=== PATIENT | male | born 1985 | race American Indian/Alaskan Native ===

== ENCOUNTER 2016-07-02 13:57 | Inpatient (IN) | payer MEDICARE ==
[2016-07-02] MEDS ORDERED: LOVENOX SUB-Q SCH (16:00)
--- NOTE | 2016-07-02 16:19 | History and Physical Report ---
History of Present Illness Date of examination: 07/02/16 Date of admission: 07/02/16 15:01 Chief complaint: pain crisis History of present illness: 30-year-old male with significant past medical history history of sickle cell anemia, seizure disorder, anxiety disorder and manic depressive disorder who presents with chief complaint of back hip and lower leg pain bilaterally. Patient is a direct admission from Dr. Reeves's office. Patient reports also having chest pain for the past couple days. His gravity prospecting observer helper reports hypoxia in the office visit along with the complaints of chest pain is what prompted the direct admission. Patient currently denies any shortness of breath. No headache or visual disturbances. No fever chills. No cough or cold -like symptoms. Past History Past Medical History: other (sickle cell, sz d/o, major depressive d/o anxiety d /o) Past Surgical History: No surgical history Social history: no significant social history Family history: no significant family history Medications and Allergies Allergies Allergy/AdvReac Type Severity Reaction Status Date / Time fentanyl Allergy Anaphylaxis Verified 12/03/14 12:24 iodine Allergy Anaphylaxis Verified 12/03/14 12:24 seafood Allergy Rash Uncoded 12/03/14 12:24 Active Meds: Active Medications Enoxaparin Sodium (Lovenox) 30 mg SUB-Q QDAY CYNDI Sodium Chloride (Nacl 0.9% 1000 Ml) 1,000 mls @ 75 mls/hr IV DIRECT CYNDI Review of Systems All systems: negative Exam - Constitutional Vitals: Temp Pulse Resp BP Pulse Ox 98.3 F 96 H 16 96 07/02/16 15:51 07/02/16 15:51 07/02/16 15:51 07/02/16 15:51 General appearance: Present: no acute distress, well-nourished - EENT Eyes: Present: PERRL ENT: hearing intact, clear oral mucosa - Neck Neck: Present: supple, normal ROM - Respiratory Respiratory effort: normal Respiratory: bilateral: CTA - Cardiovascular Heart Sounds: Present: S1 & S2. Absent: rub, click - Extremities Extremities: pulses symmetrical, No edema Peripheral Pulses: within normal limits - Abdominal General gastrointestinal: Present: soft, non-tender, non-distended, normal bowel sounds Male genitourinary: Present: normal - Integumentary Integumentary: Present: clear, warm, dry - Musculoskeletal Musculoskeletal: gait normal, strength equal bilaterally - Psychiatric Psychiatric: appropriate mood/affect, intact judgment & insight - Neurologic Neurologic: CNII-XII intact, moves all extremities Assessment and Plan Assessment and plan: Sickle cell vaso-occlusive crisis. Patient will be placed on the sickle cell pathway. Consult hematology for further evaluation. IV fluid hydration and pain control. Seizure disorder. Resume medications. Seizure precautions. Acute hypoxic respiratory failure. Check chest x-ray --rule out acute chest syndrome. Check VQ scan to rule out PE. Chest pain. Check chest x-ray, VQ scan to rule out PE and EKG. Consider stress thallium. History Major depressive disorder History Anxiety disorder.
[2016-07-02] MEDS ORDERED: ZOFRAN IV PRN (16:24)
[2016-07-02] MEDS ORDERED: DULCOLAX PR PRN (16:24)
[2016-07-02] MEDS ORDERED: REGLAN IV PRN (16:24)
[2016-07-02] MEDS ORDERED: MILK OF MAGNESIA PO PRN (16:24)
[2016-07-02 16:42] LABS: Basophils % (Auto) 0.8 % (0.0-1.8); Eosinophils % (Auto) 1.3 % (0.0-4.3); Hematocrit 32.9 % (35.5-45.6); Hemoglobin 11.2 gm/dl (11.8-15.2); Mean Corpuscular HGB Conc 34 % (32-34); Mean Corpuscular Hemoglobin 31 pg (28-32); Mean Corpuscular Volume 92 fl (84-94); Platelet Count 457 K/mm3 (140-440); Red Blood Count 3.59 M/mm3 (3.65-5.03); Red Cell Distribution Width 15.2 % (13.2-15.2); White Blood Count 9.6 K/mm3 (4.5-11.0)
[2016-07-02 16:59] LABS: Anion Gap 17 mmol/L; BUN/Creatinine Ratio 7.14; Blood Urea Nitrogen 5 mg/dL (9-20); Calcium 8.6 mg/dL (8.4-10.2); Carbon Dioxide 24 mmol/L (22-30); Chloride 102.6 mmol/L (98-107); Glucose 92 mg/dL (75-100); Potassium 3.1 mmol/L (3.6-5.0); Sodium 140 mmol/L (137-145)
[2016-07-02] MEDS ORDERED: D5/0.45NS 1,000 ML IV SCH (17:00)
[2016-07-02] MEDS: DILAUDID IV PRN ×2 (17:30→21:30)
[2016-07-02] MEDS: BENADRYL IV PRN ×2 (17:31→23:30)
[2016-07-02] MEDS: SENOKOT PO SCH (21:30)
[2016-07-02] MEDS: NACL 0.9% 1000 ML 1,000 ML IV SCH (23:32)
--- NOTE | 2016-07-03 00:59 | Consultation ---
History of Present Illness - Reason for Consult Consult date: 07/02/16 SCD/Pain crisis. Requesting physician: SANTO CERVANTES - History of Present Illness Thank you for this consult. Patient seen/examined yesterday evening, with a late entry. patient was sent from my office as a direct admit. He had presented to the office with diffuse pain, His diludid po at home was not working for him at that time.He was admitted for sxs management. He also reported some chest discomfort, and his oxygen was lower than usual.I had spoken to Dr Cervantes about him. Past History Past Medical History: anemia, other (sickle cell, sz d/o, major depressive d/o anxiety d/o) Past Surgical History: No surgical history Social history: single Family history: no significant family history Medications and Allergies Allergies Allergy/AdvReac Type Severity Reaction Status Date / Time fentanyl Allergy Anaphylaxis Verified 12/03/14 12:24 iodine Allergy Anaphylaxis Verified 12/03/14 12:24 NSAIDS (Non-Steroidal Allergy Seizure Verified 07/02/16 16:42 Anti-Inflamma IV contrast Allergy Seizure Uncoded 07/02/16 16:44 seafood AdvReac Swelling Uncoded 07/02/16 16:44 Home Medications Medication Instructions Recorded Confirmed Last Taken Type Aspirin [Aspirin TAB] 325 mg PO QDAY 07/02/16 Unknown History Diphenhydramine HCl 50 mg PO 4XD 07/02/16 Unknown History Divalproex [Jennifer ANDRE] 500 mg PO BID 07/02/16 Unknown History Folic Acid 1 mg PO DAILY 07/02/16 Unknown History Gabapentin 1,200 mg PO TID 07/02/16 Unknown History HYDROmorphone 2 mg PO 4XD 07/02/16 Unknown History Hydroxyurea [Hydrea] 1,000 mg PO BID 07/02/16 Unknown History Keppra TAB 1,000 mg PO BID 07/02/16 Unknown History Quetiapine Fumarate [Seroquel] 150 mg PO HS 07/02/16 Unknown History clonazePAM [Klonopin] 2 mg PO DAILY PRN 07/02/16 Unknown History Active Meds: Active Medications Bisacodyl (Dulcolax) 10 mg [place] QDAY PRN PRN Reason: Constipation unrelieved by MOM Diphenhydramine HCl (Benadryl) 25 mg IV Q6H PRN PRN Reason: Itching Last Admin: 07/02/16 23:30 Dose: 25 mg Enoxaparin Sodium (Lovenox) 40 mg SUB-Q QDAY@1000 CYNDI Folic Acid (Folvite) 1 mg PO QDAY [facility] Hydromorphone HCl (Dilaudid) 2 mg IV Q4HR PRN PRN Reason: Pain , Severe (7-10) Stop: 07/03/16 16:23 Last Admin: 07/02/16 21:30 Dose: 2 mg Sodium Chloride (Nacl 0.9% 1000 Ml) 1,000 mls @ 75 mls/hr IV DIRECT CYNDI Last Admin: 07/02/16 23:32 Dose: 75 mls/hr Magnesium Hydroxide (Milk Of Magnesia) 30 ml PO Q4H PRN PRN Reason: Constipation Metoclopramide HCl (Reglan) 10 mg IV Q6H PRN PRN Reason: Nausea And Vomiting Multivitamins (Theragran Tab) 1 each PO QDAY [facility] Ondansetron HCl (Zofran) 4 mg IV Q8H PRN PRN Reason: Nausea And Vomiting Senna (Senokot) 17.2 mg PO QHS [facility] Last Admin: 07/02/16 21:30 Dose: Not Given Review of Systems Constitutional: chronic pain Respiratory: shortness of breath Psychiatric: depression, mood swings Exam - Constitutional Vitals: Temp Pulse Resp BP Pulse Ox 98.4 F 79 18 119/58 95 07/02/16 23:15 07/02/16 23:15 07/02/16 23:15 07/02/16 23:15 07/02/16 23:15 General appearance: Present: mild distress, well-nourished - EENT Eyes: Present: PERRL ENT: hearing intact, clear oral mucosa - Neck Neck: Present: supple, normal ROM - Respiratory Respiratory effort: normal Respiratory: bilateral: CTA - Cardiovascular Heart Sounds: Present: S1 & S2. Absent: rub, click - Extremities Extremities: pulses symmetrical, No edema Peripheral Pulses: within normal limits - Abdominal General gastrointestinal: Present: soft, non-tender, non-distended, normal bowel sounds Male genitourinary: Present: deferred - Rectal Rectal Exam: deferred - Integumentary Integumentary: Present: clear, warm, dry - Musculoskeletal Musculoskeletal: gait normal, strength equal bilaterally - Psychiatric Psychiatric: appropriate mood/affect, intact judgment & insight - Neurologic Neurologic: CNII-XII intact, moves all extremities Results - Labs CBC & Chem 7: 07/02/16 16:20 07/02/16 16:20 Labs: Abnormal lab results 07/02/16 07/02/16 Range/Units 16:20 16:20 RBC 3.59 L (3.65-5.03) M/mm3 Hgb 11.2 L (11.8-15.2) gm/dl Hct 32.9 L (35.5-45.6) % Plt Count 457 H (140-440) K/mm3 Lymph % (Auto) 36.0 H (13.4-35.0) % Nobles % (Auto) 7.6 H (0.0-7.3) % Potassium 3.1 L (3.6-5.0) mmol/L BUN 5 L (9-20) mg/dL Creatinine 0.7 L (0.8-1.5) mg/dL Assessment and Plan - Patient Problems (1) Sickle cell anemia with coexistent alpha-thalassemia Current Visit: Yes Status: Acute Qualifiers: Sickle-cell associated disorders: S (2) Sickle cell anemia Current Visit: Yes Status: Acute Qualifiers: Sickle-cell associated disorders: S Plan to address problem: Monitor labs, and replace if needed. (3) Sickle cell pain crisis Current Visit: Yes Status: Acute Plan to address problem: Pain control, hydration.
[2016-07-03] MEDS ORDERED: K-DUR PO ONE ×2 (01:11→11:00)
[2016-07-03] MEDS: DILAUDID IV PRN ×5 (01:36→22:00)
[2016-07-03] MEDS: BENADRYL IV PRN ×4 (05:29→21:59)
[2016-07-03 06:05] LABS: Hematocrit 31.6 % (35.5-45.6); Mean Corpuscular HGB Conc 35 % (32-34); Mean Corpuscular Hemoglobin 32 pg (28-32); Mean Corpuscular Volume 92 fl (84-94); Platelet Count 437 K/mm3 (140-440); Red Blood Count 3.42 M/mm3 (3.65-5.03); Reticulocyte % 2.11 % (0.78-2.58); White Blood Count 10.9 K/mm3 (4.5-11.0)
[2016-07-03 06:29] LABS: Iron 81 ug/dL (49-181); Total Iron Binding Capacity 188 mcg/dL (250-450)
--- NOTE | 2016-07-03 08:09 | XRay Report ---
ROUTINE CHEST, TWO VIEWS: HISTORY: chest pain. No comparison. A right [id number] terminates in the superior SVC. The trachea, heart, mediastinal contour, lung rosa and bony thorax are unremarkable. IMPRESSION: Unremarkable chest x-ray.
--- NOTE | 2016-07-03 08:43 | Nuclear Medicine Report ---
LUNG SCAN, VENTILATION AND PERFUSION: History: Chest pain, sickle cell disease. Technique: 5mci of Tc99m MAA was infused for the perfusion images. 15mci XE 133 gas was inhaled for the ventilatory images. Correlation is made with a chest x-ray dated 07/02/16. Findings: Inhalation of Xenon gas demonstrates a normal distribution of the activity throughout both lungs. The wash out phases show mild retention of the radiotracer in the lower lung zones suggesting mild obstructive disease. After injection of Technetium 99m macroaggregated albumin gamma camera imaging of the lungs in multiple projections demonstrates normal pulmonary contours with a homogeneous distribution of activity. No focal areas of perfusion deficiency are identified. IMPRESSION: Low probability for pulmonary embolus.
--- NOTE | 2016-07-03 08:44 | Admit Criteria Form ---
Admission Criteria Documentation: SICKLE CELL DISEASE Clinical Indications for Admission to Inpatient Care (Place 'X' for any and all applicable criteria): Admission is indicated for ANY ONE of the following(1)(2)(3)(4)(5): [X ]I. Inpatient admission required rather than observation care because of ANY ONE of the following: [ ]a) Altered mental status [ ]b) High fever or infection requiring inpatient admission as indicated by ANY ONE of the following: [ ]A. Appropriate outpatient observation care antimicrobial treatment unavailable, not effective, or not appropriate for infection [ ]B. Documented bacteremia [ ]C. Temp >104.9F (40.5C) (oral) [ ]D. Temp >103.1F (oral) or <96.8F(rectal) that does not respond to all emergency treatment measures [X ]c) Supplemental O2 or respiratory therapy for over 24 h that are performable only in acute inpatient setting [ ]d) Continuous parenteral narcoticsother major pain intervention for >24 h performable only in acute inpatient setting. [ ]e) Exchange transfusion [ ]f) Other condition, treatment or monitoring requiring inpatient admission [ ]II. Acute chest syndrome indicated by ALL of the following (10): [ ]a) New alveolar infiltrate involving at least one lung segment [ ]b) Associated pulmonary symptoms or findings as indicated by ANY ONE of the following: [ ]i) Chest pain [ ]ii) Hypoxemia [ ]iii) Tachypnea/dyspnea [ ]iv) Wheezing [ ]v) Cough [ ]vi) Sputum production [ ]III. Significant hypoxemia or acidosis (more severe than baseline) [ ]IV. Emergent surgery needed (eg, acute cholecystitis) [ ]V. -related complication(11) [ ]. Splenic or hepatic sequestration(12) [ ]VII. Aplastic crisis [ ]VIII. Priapism or other vascular complication(13) [ ]IX. Traumatic hyphema [A](14) [ ]X. Underlying condition requiring hospitalization (eg, osteomyelitis) [ ]XI. Signs or symptoms of central nervous system injury indicated by ANY ONE of the following: [ ]a) Stroke(9) [ ]b) Seizure [ ]c) Other significant central nervous system symptom or event [ ]XII. Acute renal failure Extended stay beyond goal length of stay may be needed for: [ ]a) Inadequate pain control [ ]b) Acute chest syndrome [ ]c) Sequestration or aplastic crisis (12) [ ]d) Pneumonia and asthma exacerbation [ ]e) Neurologic or vascular complications (25) [ ]f) Infection (eg, osteomyelitis) that requires ongoing treatment) The original [facility] [employer] content created by [facility] has been revised. The portions of the content which have been revised are identified through the use of italic text or in bold, and [facility] has neither reviewed nor approved the modified material. All other unmodified content is copyright [facility]. Please see references footnoted in the original [facility] edition 2016 Admission Criteria Met: Yes
--- NOTE | 2016-07-03 09:56 | Progress Note ---
Assessment and Plan Assessment and plan: Sickle cell vaso-occlusive crisis. Patient will be placed on the sickle cell pathway. Consult hematology for further evaluation. IV fluid hydration and pain control. Seizure disorder. Resume medications. Seizure precautions. Acute hypoxic respiratory failure. Resolved. Continue O2. Supportive care Chest pain. VQ scan and chest x-ray are negative. No evidence of acute chest syndrome. Etiology likely secondary to sickle cell crisis. Hypokalemia. Replete potassium. History Major depressive disorder History Anxiety disorder. History Interval history: Patient still complains of back and lower extremity pain. Hospitalist Physical - Constitutional Vitals: Temp Pulse Resp BP Pulse Ox 97.8 F 64 18 127/61 98 07/03/16 08:00 07/03/16 08:00 07/03/16 08:00 07/03/16 08:00 07/03/16 08:00 General appearance: Present: no acute distress, well-nourished - EENT Eyes: Present: PERRL, EOM intact ENT: hearing intact, clear oral mucosa, dentition normal - Neck Neck: Present: supple, normal ROM - Respiratory Respiratory effort: normal Respiratory: bilateral: CTA - Cardiovascular Rhythm: regular Heart Sounds: Present: S1 & S2. Absent: gallop, rub - Extremities Extremities: no ischemia, No edema, Full ROM - Abdominal General gastrointestinal: soft, non-tender, non-distended, normal bowel sounds - Integumentary Integumentary: Present: clear, warm, dry - Neurologic Neurologic: CNII-XII intact, moves all extremities Results - Labs CBC & Chem 7: 07/03/16 05:20 07/02/16 16:20 Labs: Laboratory Last Values WBC 10.9 K/mm3 (4.5-11.0) 07/03/16 05:20 RBC 3.42 M/mm3 (3.65-5.03) L 07/03/16 05:20 Hgb 11.0 gm/dl (11.8-15.2) L 07/03/16 05:20 Hct 31.6 % (35.5-45.6) L 07/03/16 05:20 MCV 92 fl (84-94) 07/03/16 05:20 MCH 32 pg (28-32) 07/03/16 05:20 MCHC 35 % (32-34) H 07/03/16 05:20 RDW 15.0 % (13.2-15.2) 07/03/16 05:20 Plt Count 437 K/mm3 (140-440) 07/03/16 05:20 Lymph % (Auto) Nail Polish Brush Machine Feeder 07/03/16 05:20 Turner % (Auto) 7.6 % (0.0-7.3) H 07/02/16 16:20 Eos % (Auto) 1.3 % (0.0-4.3) 07/02/16 16:20 Baso % (Auto) 0.8 % (0.0-1.8) 07/02/16 16:20 Lymph # Nail Polish Brush Machine Feeder 07/03/16 05:20 Turner # 0.7 K/mm3 (0.0-0.8) 07/02/16 16:20 Eos # 0.1 K/mm3 (0.0-0.4) 07/02/16 16:20 Baso # 0.1 K/mm3 (0.0-0.1) 07/02/16 16:20 Seg Neutrophils % Nail Polish Brush Machine Feeder 07/03/16 05:20 Seg Neutrophils # 5.2 K/mm3 (1.8-7.7) 07/02/16 16:20 Percent Retic 2.11 % (0.78-2.58) 07/03/16 05:20 Sodium 140 mmol/L (137-145) 07/02/16 16:20 Potassium 3.1 mmol/L (3.6-5.0) L 07/02/16 16:20 Chloride 102.6 mmol/L (98-107) 07/02/16 16:20 Carbon Dioxide 24 mmol/L (22-30) 07/02/16 16:20 Anion Gap 17 mmol/L 07/02/16 16:20 BUN 5 mg/dL (9-20) L 07/02/16 16:20 Creatinine 0.7 mg/dL (0.8-1.5) L 07/02/16 16:20 Estimated GFR > 60 ml/min 07/02/16 16:20 BUN/Creatinine Ratio 7.14 % 07/02/16 16:20 Glucose 92 mg/dL (75-100) 07/02/16 16:20 Calcium 8.6 mg/dL (8.4-10.2) 04/24/17 16:20 Iron 81 ug/dL (49-181) 07/03/16 05:20 TIBC 188 mcg/dL (250-450) L 07/03/16 05:20 Ferritin 112.0 ng/mL (13.0-400.0) 07/03/16 05:20
[2016-07-03] MEDS ORDERED: LOVENOX SUB-Q SCH (10:00)
[2016-07-03] MEDS ORDERED: THERAGRAN Tab PO SCH (10:00)
[2016-07-03] MEDS ORDERED: FOLVITE PO SCH (10:00)
[2016-07-03 10:55] LABS: Blastocytes % (Manual) 0 %
[2016-07-03 10:57] LABS: Basophils % (Manual) 0 % (0.0-1.8); Poikilocytosis Few
[2016-07-03 10:58] LABS: Diff Status Complete; Sickle Cells Few; Target Cells 2+
[2016-07-03] MEDS: NACL 0.9% 1000 ML 1,000 ML IV SCH (11:16)
[2016-07-03] MEDS ORDERED: ATIVAN ONE (19:08)
[2016-07-03] MEDS ORDERED: ATIVAN IV ONE (19:12)
--- NOTE | 2016-07-03 20:49 | Consultation ---
History of Present Illness - Reason for Consult Consult date: 07/03/16 - History of Present Illness Patient seen/examined, record reviewed, case d/w patient. he had an anxiety attack earlier. he was upset because his pain med was accidentally discontinued. Past History Past Medical History: anemia, other (sickle cell, sz d/o, major depressive d/o anxiety d/o) Past Surgical History: No surgical history Social history: single Family history: no significant family history Medications and Allergies Allergies Allergy/AdvReac Type Severity Reaction Status Date / Time fentanyl Allergy Anaphylaxis Verified 12/03/14 12:24 iodine Allergy Anaphylaxis Verified 12/03/14 12:24 NSAIDS (Non-Steroidal Allergy Seizure Verified 07/02/16 16:42 Anti-Inflamma IV contrast Allergy Seizure Uncoded 07/02/16 16:44 seafood AdvReac Swelling Uncoded 07/02/16 16:44 Home Medications Medication Instructions Recorded Confirmed Last Taken Type Aspirin [Aspirin TAB] 325 mg PO QDAY 07/02/16 Unknown History Diphenhydramine HCl 50 mg PO 4XD 07/02/[address] [DepaKOTE DR] 500 mg PO BID 07/02/16 Unknown History Folic Acid 1 mg PO DAILY 07/02/16 Unknown History Gabapentin 1,200 mg PO TID 07/02/16 Unknown History HYDROmorphone 2 mg PO 4XD 07/02/16 Unknown History Hydroxyurea [Hydrea] 1,000 mg PO BID 07/02/16 Unknown History Keppra TAB 1,000 mg PO BID 07/02/16 Unknown History Quetiapine Fumarate [Seroquel] 150 mg PO HS 07/02/16 Unknown History clonazePAM [Klonopin] 2 mg PO DAILY PRN 07/02/16 Unknown History Active Meds: Active Medications Bisacodyl (Dulcolax) 10 mg [place] QDAY PRN PRN Reason: Constipation unrelieved by MOM Diphenhydramine HCl (Benadryl) 25 mg IV Q6H PRN PRN Reason: Itching Last Admin: 07/03/16 13:49 Dose: 25 mg Enoxaparin Sodium (Lovenox) 40 mg SUB-Q QDAY@1000 CYNDI Last Admin: 07/03/16 09:37 Dose: 40 mg Folic Acid (Folvite) 1 mg PO QDAY CYNDI Last Admin: 07/03/16 09:38 Dose: 1 mg Hydromorphone HCl (Dilaudid) 2 mg IV Q3H PRN PRN Reason: Pain , Severe (7-10) Sodium Chloride (Nacl 0.9% 1000 Ml) 1,000 mls @ 75 mls/hr IV DIRECT [facility] Last Admin: 07/03/16 11:16 Dose: 75 mls/hr Magnesium Hydroxide (Milk Of Magnesia) 30 ml PO Q4H PRN PRN Reason: Constipation Metoclopramide HCl (Reglan) 10 mg IV Q6H PRN PRN Reason: Nausea And Vomiting Multivitamins (Theragran Tab) 1 each PO QDAY [facility] Last Admin: 07/03/16 09:38 Dose: 1 each Ondansetron HCl (Zofran) 4 mg IV Q8H PRN PRN Reason: Nausea And Vomiting Senna (Senokot) 17.2 mg PO QHS [facility] Last Admin: 07/02/16 21:30 Dose: Not Given Review of Systems Constitutional: chronic pain Musculoskeletal: low back pain Neurological: seizures Psychiatric: anxiety Exam - Constitutional Vitals: Temp Pulse Resp BP Pulse Ox 98.1 F 88 24 129/73 100 07/03/16 15:31 07/03/16 19:16 07/03/16 19:16 07/03/16 19:16 07/03/16 19:16 General appearance: Present: mild distress, well-nourished - EENT Eyes: Present: PERRL ENT: hearing intact, clear oral mucosa - Neck Neck: Present: supple, normal ROM - Respiratory Respiratory effort: normal Respiratory: bilateral: CTA - Cardiovascular Heart Sounds: Present: S1 & S2. Absent: rub, click - Extremities Extremities: pulses symmetrical, No edema Peripheral Pulses: within normal limits - Abdominal General gastrointestinal: Present: soft, non-tender, non-distended, normal bowel sounds Male genitourinary: Present: deferred - Rectal Rectal Exam: deferred - Integumentary Integumentary: Present: clear, warm, dry - Musculoskeletal Musculoskeletal: gait normal, strength equal bilaterally - Psychiatric Psychiatric: appropriate mood/affect, intact judgment & insight - Neurologic Neurologic: CNII-XII intact, moves all extremities Results - Labs CBC & Chem 7: 07/03/16 05:20 07/02/16 16:20 Labs: Abnormal lab results 07/03/16 07/03/16 Range/Units 05:20 05:20 RBC 3.42 L (3.65-5.03) M/mm3 Hgb 11.0 L (11.8-15.2) gm/dl Hct 31.6 L (35.5-45.6) % MCHC 35 H (32-34) % Seg Neuts % (Manual) 24.0 L (40.0-70.0) % Lymphocytes % (Manual) 68.0 H (13.4-35.0) % Lymphocytes # (Manual) 7.4 H (1.2-5.4) K/mm3 TIBC 188 L (250-450) mcg/dL Assessment and Plan - Patient Problems (1) Sickle cell anemia with coexistent alpha-thalassemia Current Visit: Yes Status: Acute Qualifiers: Sickle-cell associated disorders: S Plan to address problem: continue with current management. (2) Sickle cell anemia Current Visit: Yes Status: Acute Qualifiers: Sickle-cell associated disorders: S Plan to address problem: Monitor labs, and replace if needed. same as above. (3) Sickle cell pain crisis Current Visit: Yes Status: Acute Plan to address problem: Pain control, hydration. (4) Anxiety Current Visit: Yes Status: Acute Plan to address problem: mild anti anxiety of your choice. (5) Seizure Current Visit: Yes Status: Acute Plan to address problem: resume his keppra.
[2016-07-03] MEDS: SENOKOT PO SCH (21:56)
[2016-07-03] MEDS ORDERED: KEPPRA PO SCH (23:00)
[2016-07-04] MEDS: DILAUDID IV PRN ×3 (02:01→07:55)
[2016-07-04] MEDS: BENADRYL IV PRN (05:11)
[2016-07-04 06:13] LABS: Hematocrit 33.6 % (35.5-45.6); Hemoglobin 11.5 gm/dl (11.8-15.2); Mean Corpuscular HGB Conc 34 % (32-34); Mean Corpuscular Hemoglobin 31 pg (28-32); Mean Corpuscular Volume 91 fl (84-94); Platelet Count 474 K/mm3 (140-440); Red Blood Count 3.67 M/mm3 (3.65-5.03); Red Cell Distribution Width 15.9 % (13.2-15.2); Reticulocyte % 2.26 % (0.78-2.58); White Blood Count 9.7 K/mm3 (4.5-11.0)
[2016-07-04 06:31] LABS: Anion Gap 14 mmol/L; BUN/Creatinine Ratio 8.33; Blood Urea Nitrogen 5 mg/dL (9-20); Calcium 8.5 mg/dL (8.4-10.2); Carbon Dioxide 27 mmol/L (22-30); Chloride 105.4 mmol/L (98-107); Glucose 92 mg/dL (75-100); Potassium 3.9 mmol/L (3.6-5.0); Sodium 142 mmol/L (137-145)
[2016-07-04 07:40] LABS: Basophils % (Manual) 0 % (0.0-1.8); Blastocytes % (Manual) 0 %; Target Cells 2+
[2016-07-04 07:41] LABS: Diff Status Complete; Platelet Estimate Appears Increased; Sickle Cells Few
[2016-07-04 08:56] VITALS: BP 119/64
[2016-07-04] MEDS ORDERED: HYDREA PO SCH (10:00)
--- NOTE | 2016-07-04 10:08 | Discharge Summary ---
Providers - Providers Date of Admission: 07/02/16 15:01 Date of discharge: 07/04/16 Attending physician: SANTO ANDREW 07/03/16 08:07 Consult to Physician [CONS] Routine Consulting Provider: RACHEL REEVES Reason For Exam: ss pain crisis Place consult to:: DR. REEVES Notified:: DR. REEVES Phone number called:: [phone] Was contact made?: Yes If yes, spoke with:: DR. REEVES Time called:: 09:07 Primary care physician: BIGHT MAKER Hospitalization Reason for admission: sickle cell pain crisis Hospital course: 30-year-old male with significant past medical history history of sickle cell anemia, seizure disorder, anxiety disorder and manic depressive disorder who presented with chief complaint of back hip and lower leg pain bilaterally. Patient was a direct admission from Dr. Reeves's office. Patient reported also having chest pain for the past couple days prior to admission. His network intern reported hypoxia in the office visit along with the complaints of chest pain is what prompted the direct admission. VQ scan was negative for pulmonary embolus. Chest x-ray was also negative. No evidence of acute chest syndrome. Patient was treated with IV pain medication, IV fluids and supportive care. Patient was seen by hematology consultation. This morning patient reports having several family emergencies that he needs to deal with. Therefore, patient opted to leave AMA. The risks were discussed with the patient. Nurse reports that the port access was terminated. Dedicated discharge time 35 minutes. Disposition: LEFT AGAINST MEDICAL ADVICE Time spent for discharge: 35 - Discharge Diagnoses (1) Anxiety Status: Acute (2) Sickle cell anemia Status: Acute Qualifiers: Sickle-cell associated disorders: S (3) Sickle cell pain crisis Status: Acute Core Measure Documentation - Palliative Care Palliative Care/ Comfort Measures: Not Applicable - Core Measures Any of the following diagnoses?: none Exam - Constitutional Vitals: Temp Pulse Resp BP Pulse Ox 97.9 F 80 18 119/64 100 07/04/16 08:51 07/04/16 08:51 07/04/16 08:51 07/04/16 08:51 07/04/16 08:51 General appearance: Present: no acute distress, well-nourished - EENT Eyes: Present: PERRL ENT: hearing intact, clear oral mucosa - Neck Neck: Present: supple, normal ROM - Respiratory Respiratory effort: normal Respiratory: bilateral: CTA - Cardiovascular Heart Sounds: Present: S1 & S2. Absent: rub, click - Extremities Extremities: pulses symmetrical, No edema Peripheral Pulses: within normal limits - Abdominal General gastrointestinal: Present: soft, non-tender, non-distended, normal bowel sounds Male genitourinary: Present: normal - Integumentary Integumentary: Present: clear, warm, dry - Musculoskeletal Musculoskeletal: gait normal, strength equal bilaterally - Psychiatric Psychiatric: appropriate mood/affect, intact judgment & insight - Neurologic Neurologic: CNII-XII intact, moves all extremities Plan Follow up with: PRIMARY CARE, [Primary Care Provider] - 7 Days
== END 2016-07-04 10:00 | disposition left against medical advice (07) | DRG 811 ==
LOC: UNDOADMIN 13:57 → 3A 13:57
PROVIDERS: ADMIT Hospitalist; ATTEND Hospitalist
DX: D57.419 Sickle-cell thalassemia, unspecified, with crisis (principal); J96.01 Acute respiratory failure with hypoxia; F33.9 Major depressive disorder, recurrent, unspecified; E87.6 Hypokalemia; G40.909 Epilepsy, unspecified, not intractable, without status epilepticus; F41.9 Anxiety disorder, unspecified; Z88.8 Allergy status to other drugs, medicaments and biological substances; Z91.041 Radiographic dye allergy status; Z91.013 Allergy to seafood; Z53.21 Procedure and treatment not carried out due to patient leaving prior to being seen by health care provider
CPT/HCPCS: 36415; 71020; 78582; 80048; 82728; 83550; 85007; 85025; 85045; 93005; 93010; 99406; A9540; A9558; J1170; J1200; J1650; J2060; J7030

== ENCOUNTER 2016-10-24 06:42 | Emergency (ER) | payer MEDICARE ==
[2016-10-24] MEDS ORDERED: D5NS 0.2% 1,000 ML IV SCH (08:00)
[2016-10-24 12:49] LABS: Creatine Kinase 56 units/L (55-170)
[2016-10-24 12:55] LABS: Creatine Kinase MB < 1.0 ng/mL (0.0-4.0)
[2016-10-24] MEDS ORDERED: DILAUDID IV ONE ×2 (13:09→15:38)
[2016-10-24] MEDS ORDERED: ZOFRAN IV ONE (13:09)
--- NOTE | 2016-10-24 13:09 | Emergency Department Report ---
HPI - General Chief Complaint: Sickle Cell Crisis Time Seen by Provider: 10/24/16 12:53 - HPI HPI: PATIENT WITH H/O SICKLE CELL IS HERE WITH PAIN, ALL OVER, WORSE IN EXTREMITIES. STATES HE IS ON MORPHINE, DILAUDID AT HOME, TOOK THEM WITHOUT RELIEF. NO FEVER, NO CHEST PAIN OR SOB. ED Past Medical Hx - Past Medical History Previous Medical History?: Yes Hx Congestive Heart Failure: No Hx Diabetes: No Hx Sickle Cell Disease: Yes Hx Headaches / Migraines: Yes Hx Seizures: Yes Hx Psychiatric Treatment: Yes (panic attackes, depression, bipolar) Hx Asthma: No Hx COPD: No Additional medical history: chronic chest pain, PALPITATIONS - Surgical History Past Surgical History?: Yes Additional Surgical History: SPLEENECTOMY, RIGHT SIDE PORT, BIOPSY - Social History Smoking Status: Light Tobacco Smoker Substance Use Type: Prescribed - Medications Home Medications: Home Medications Medication Instructions Recorded Confirmed Last Taken Type Aspirin [Aspirin TAB] 325 mg PO QDAY 07/02/16 07/16/16 Unknown History Diphenhydramine HCl 50 mg PO 4XD 07/02/16 07/16/[address] [DepaKOTE DR] 500 mg PO BID 07/02/16 07/16/16 Unknown History Folic Acid 1 mg PO DAILY 07/02/16 07/16/16 Unknown History Gabapentin 1,200 mg PO TID 07/02/16 07/16/16 Unknown History HYDROmorphone 2 mg PO 4XD 07/02/16 07/16/16 Unknown History Hydroxyurea [Hydrea] 1,000 mg PO BID 07/02/16 07/16/16 Unknown History Keppra TAB 1,000 mg PO BID 07/02/16 07/16/16 Unknown History Quetiapine Fumarate [Seroquel] 150 mg PO HS 07/02/16 07/16/16 Unknown History clonazePAM [Klonopin] 2 mg PO DAILY PRN 07/02/16 07/16/16 Unknown History Melatonin [Melatonin] 3 tab PO QDAY 07/16/16 07/16/16 Unknown History ED Review of Systems ROS: Stated complaint: SICKLE CELL PAIN Other details as noted in HPI Comment: All other systems reviewed and negative Cardiovascular: as per HPI Musculoskeletal: myalgia Physical Exam - Physical Exam Vital Signs: Vital Signs 08/16/17 08/16/17 07:17 12:15 Temperature 99.0 F 97.8 F Pulse Rate 102 H 76 Respiratory 18 18 Rate Blood Pressure 153/79 Blood Pressure 120/78 [Left] O2 Sat by Pulse 95 99 Oximetry Physical Exam: gen: alert and oriented x3 SKIN: normal turgor heent: perrla, eomi cv: rrr, nl s1, s2 lungs: cta bila abd: s,nt,nd, pos bs ext: no edema neuro: no deficits psych: normal mood, ED Course Vital Signs 10/24/16 10/24/16 07:17 12:15 Temperature 99.0 F 97.8 F Pulse Rate 102 H 76 Respiratory 18 18 Rate Blood Pressure 153/79 Blood Pressure 120/78 [Left] O2 Sat by Pulse 95 99 Oximetry ED Medical Decision Making - Lab Data Result diagrams: 10/24/16 14:45 10/24/16 Unknown Critical care attestation.: If time is entered above; I have spent that time in minutes in the direct care of this critically ill patient, excluding procedure time. ED Disposition Clinical Impression: Sickle cell anemia Disposition: DC-01 TO HOME OR SELFCARE Is pt being admited?: No Does the pt Need Aspirin: No Condition: Stable Referrals: RACHEL GUPTA DO [Primary Care Provider] - 3-5 Days
[2016-10-24] MEDS ORDERED: BENADRYL ONE (13:24)
[2016-10-24 13:53] LABS: Alanine Aminotransferase 15 units/L (7-56); Albumin 4.5 g/dL (3.9-5); Alkaline Phosphatase 75 units/L (35-129); Anion Gap 21 mmol/L; BUN/Creatinine Ratio 13.33; Blood Urea Nitrogen 8 mg/dL (9-20); Calcium 9.3 mg/dL (8.4-10.2); Carbon Dioxide 23 mmol/L (22-30); Chloride 102.8 mmol/L (98-107); Glucose 96 mg/dL (75-100); Potassium 3.7 mmol/L (3.6-5.0); Sodium 143 mmol/L (137-145); Total Protein 8.9 g/dL (6.3-8.2)
--- NOTE | 2016-10-24 14:58 | XRay Report ---
AP CHEST: HISTORY: chest pain AP view of the chest demonstrates a normal mediastinal and cardiac contour with clear lungs and normal bony and soft tissue structures. IMPRESSION: Unremarkable AP chest.
[2016-10-24 15:30] LABS: Hematocrit 39.1 % (35.5-45.6); Hemoglobin 13.1 gm/dl (11.8-15.2); Mean Corpuscular HGB Conc 34 % (32-34); Mean Corpuscular Hemoglobin 31 pg (28-32); Mean Corpuscular Volume 92 fl (84-94); Platelet Count 489 K/mm3 (140-440); Red Blood Count 4.27 M/mm3 (3.65-5.03); Red Cell Distribution Width 14.8 % (13.2-15.2); White Blood Count 8.9 K/mm3 (4.5-11.0)
[2016-10-24 16:01] LABS: Reticulocyte % 2.79 % (0.78-2.58)
[2016-10-24 16:15] VITALS: BP 113/69
[2016-10-24 18:02] LABS: Basophils % (Manual) 0 % (0.0-1.8); Blastocytes % (Manual) 0 %
[2016-10-24 18:10] LABS: Target Cells 1+
[2016-10-24 18:11] LABS: Anisocytosis 1+; Large Platelets 1+; Tear Drop Cells Rare
[2016-10-24 18:12] LABS: Diff Status Complete; Platelet Estimate Consistent w Auto
== END 2016-10-24 16:15 | disposition home or self-care (01) ==
LOC: ED 06:42
DX: D57.1 Sickle-cell disease without crisis (principal); G43.909 Migraine, unspecified, not intractable, without status migrainosus; R56.9 Unspecified convulsions; F31.9 Bipolar disorder, unspecified; F32.9 Major depressive disorder, single episode, unspecified; G89.29 Other chronic pain; F17.200 Nicotine dependence, unspecified, uncomplicated; Z79.82 Long term (current) use of aspirin
CPT/HCPCS: 36415; 71010; 80053; 82550; 82553; 84484; 85007; 85025; 85045; 93005; 93010; 96361; 96374; 96376; 99284; J1170; J1200; J2405

== ENCOUNTER 2017-08-28 12:42 | Emergency (ER) | payer MEDICARE ==
[2017-08-28 16:22] VITALS: BP 121/77
[2017-08-28] MEDS ORDERED: ZOFRAN IV ONE (18:40)
[2017-08-28] MEDS ORDERED: BENADRYL IV ONE ×2 (18:40→20:52)
[2017-08-28] MEDS ORDERED: DILAUDID IV ONE ×3 (18:40→22:08)
--- NOTE | 2017-08-28 18:55 | Emergency Department Report ---
HPI - General Chief Complaint: Sickle Cell Crisis Time Seen by Provider: 08/28/17 18:16 - HPI HPI: 31-year-old male presents to the emergency department with complaint of generalized body pain that he believes is a sickle cell pain crisis. He has pain to the bilateral hips, his "joints", to the face and chest. He denies any fever, shortness of breath. He has been taking his MS Contin at home without any relief. He is on folic acid and hydroxyurea. He says he called his primary care physician, Dr. Romero, but they were unable to see him and he was told to come to the emergency department. No recent travel or sick contacts at home. He also has a past medical history of anxiety , depression, seizures. ED Past Medical Hx - Past Medical History Previous Medical History?: Yes Hx Congestive Heart Failure: No Hx Diabetes: No Hx Sickle Cell Disease: Yes Hx Headaches / Migraines: Yes Hx Seizures: Yes Hx Psychiatric Treatment: Yes (panic attackes, depression, bipolar) Hx Asthma: No Hx COPD: No Additional medical history: chronic chest pain, PALPITATIONS - Surgical History Past Surgical History?: Yes Additional Surgical History: SPLEENECTOMY, RIGHT SIDE PORT, BIOPSY - Social History Smoking Status: Current Every Day Smoker - Medications Home Medications: Home Medications Medication Instructions Recorded Confirmed Last Taken Type Aspirin [Aspirin TAB] 325 mg PO QDAY 07/02/16 07/16/16 Unknown History Diphenhydramine HCl 50 mg PO 4XD 07/02/16 07/16/16 Unknown History Divalproex [Jennifer ANDRE] 500 mg PO BID 07/02/16 07/16/16 Unknown History Folic Acid 1 mg PO DAILY 07/02/16 07/16/16 Unknown History Gabapentin 1,200 mg PO TID 07/02/16 07/16/16 Unknown History HYDROmorphone 2 mg PO 4XD 07/02/16 07/16/16 Unknown History Hydroxyurea [Hydrea] 1,000 mg PO BID 07/02/16 07/16/16 Unknown History Keppra TAB 1,000 mg PO BID 07/02/16 07/16/16 Unknown History Quetiapine Fumarate [Seroquel] 150 mg PO HS 07/02/16 07/16/16 Unknown History clonazePAM [Klonopin] 2 mg PO DAILY PRN 07/02/16 07/16/16 Unknown History Melatonin 3 tab PO QDAY 07/16/16 07/16/16 Unknown History ED Review of Systems ROS: Stated complaint: SICKLE CELL PAIN Other details as noted in HPI Comment: All other systems reviewed and negative Constitutional: denies: chills, fever Eyes: denies: eye pain, eye discharge, vision change ENT: denies: ear pain, throat pain Respiratory: denies: cough, shortness of breath, wheezing Cardiovascular: chest pain. denies: palpitations, edema Gastrointestinal: denies: abdominal pain, nausea, diarrhea Genitourinary: denies: urgency, dysuria Musculoskeletal: back pain, arthralgia, myalgia. denies: joint swelling Skin: denies: rash, lesions Neurological: denies: headache, weakness, paresthesias Physical Exam - Physical Exam Vital Signs: Vital Signs 08/28/17 08/28/17 12:42 14:55 Temperature 99.2 F Pulse Rate 69 66 Respiratory 16 16 Rate Blood Pressure 131/88 Blood Pressure 121/77 [Right] O2 Sat by Pulse 95 97 Oximetry Physical Exam: GENERAL: The patient is well-developed well-nourished. HENT: Normocephalic. Atraumatic. Patient has moist mucous membranes. EYES: Extraocular motions are intact. Pupils equal reactive to light bilaterally. NECK: Supple. Trachea is midline. CHEST/LUNGS: Clear to auscultation. There is no respiratory distress noted. HEART/CARDIOVASCULAR: Regular. There is no tachycardia. There is no murmur. ABDOMEN: Abdomen is soft, nontender. Patient has normal bowel sounds. There is no abdominal distention. SKIN: Skin is warm and dry. NEURO: The patient is awake, alert, and oriented. The patient is cooperative. The patient has no focal neurologic deficits. The patient has normal speech. Cranial nerves II through XII grossly intact. MUSCULOSKELETAL: There is some tenderness palpation to the bilateral hips. There is no limitation range of motion. There is no evidence of acute injury. ED Course Vital Signs 08/28/17 08/28/17 12:42 14:55 Temperature 99.2 F Pulse Rate 69 66 Respiratory 16 16 Rate Blood Pressure 131/88 Blood Pressure 121/77 [Right] O2 Sat by Pulse 95 97 Oximetry ED Medical Decision Making - Lab Data Result diagrams: 08/28/17 19:38 08/28/17 19:38 - EKG Data -: EKG Interpreted by Me EKG shows normal: sinus rhythm, axis, intervals (prolongation of WA interval), QRS complexes, ST-T waves Rate: normal - EKG Data When compared to previous EKG there are: previous EKG unavailable Interpretation: other (sinus rhythm, prolongation of WA interval) - Radiology Data Radiology results: image reviewed interpreted by me: Chest x-ray does not show any acute process. There are no pleural effusions, obvious pneumonia and there is no pneumothorax. - Medical Decision Making Patient presents with generalized body aches that he believes is a sickle cell pain crisis. He specifically complains of bilateral hip pain and also mentioned his chest. EKG does not show any signs of ST elevation GA, ischemia or dysrhythmia. Chest x-ray does not show any signs of any pneumonia or any other acute process. He appears very low suspicion for acute chest crisis. His labs show a hemoglobin of 11.6 and a reticulocyte count of 4 that is consistent with previous visits. He was given some IV fluid, pain and nausea medication. He was reevaluated multiple times over multiple hours and both looks and feels improved. Vital signs stable throughout his ED course including being afebrile. He has good outpatient follow-up with primary care and hematology. He is been instructed to follow-up with his physicians and to return to the emergency Department with any worsening of his symptoms or any acute distress. - Differential Diagnosis sickle cell pain crisis, chest crisis, fibromyalgia Critical Care Time: No Critical care attestation.: If time is entered above; I have spent that time in minutes in the direct care of this critically ill patient, excluding procedure time. ED Disposition Clinical Impression: Sickle cell pain crisis Sickle cell anemia Qualifiers: Sickle-cell associated disorders: with unspecified crisis Qualified Code(s): D57.00 - Hb-SS disease with crisis, unspecified Disposition: DC-01 TO HOME OR SELFCARE Is pt being admited?: No Condition: Stable Instructions: Sickle Cell Crisis (ED), Anemia (ED) Additional Instructions: Please follow-up with your primary care physician and/or tonnage compilation clerk in the next few days. Return to the emergency department with any worsening of your symptoms or any acute distress. Referrals: BIA BARKRE [Other] - 2-3 Days RACHEL GUPTA DO [Staff Physician] - 2-3 Days Time of Disposition: 23:22
[2017-08-28 20:13] LABS: Hematocrit 32.6 % (35.5-45.6); Hemoglobin 11.4 gm/dl (11.8-15.2); Mean Corpuscular HGB Conc 35 % (32-34); Mean Corpuscular Hemoglobin 29 pg (28-32); Mean Corpuscular Volume 84 fl (84-94); Platelet Count 498 K/mm3 (140-440); Red Blood Count 3.88 M/mm3 (3.65-5.03); Red Cell Distribution Width 14.9 % (13.2-15.2)
[2017-08-28 20:20] LABS: BUN/Creatinine Ratio 9; Blood Urea Nitrogen 7 mg/dL (9-20); Calcium 9.2 mg/dL (8.4-10.2); Hemolysis Index 14
[2017-08-28 20:51] LABS: Total Cells Counted 100
[2017-08-28 20:52] LABS: Anisocytosis 1+; Target Cells 1+
[2017-08-28] MEDS ORDERED: NACL 0.9% 1000 ML 1,000 ML IV ONE (20:52)
[2017-08-28] MEDS ORDERED: FLUSH HEPARIN IV ONE (23:58)
[2017-08-29] MEDS ORDERED: FLUSH HEPARIN IV ONE (00:21)
--- NOTE | 2017-08-29 00:28 | XRay Report ---
FINAL REPORT PROCEDURE: XR CHEST 1V AP TECHNIQUE: Chest radiograph anteroposterior view. CPT 21958 HISTORY: Chest pain. COMPARISON: No prior studies are available for comparison. FINDINGS: Heart: Normal. Mediastinum/Vessels: Normal. Lungs/Pleural space: Normal. Bony thorax: No acute osseous abnormality. Life support devices: [id number] tip in the SVC.. IMPRESSION: No radiographic evidence of acute cardiopulmonary disease. [id number] tip in the SVC.
== END 2017-08-29 00:24 | disposition home or self-care (01) ==
LOC: ED 12:42
DX: D57.219 Sickle-cell/Hb-C disease with crisis, unspecified (principal); F41.0 Panic disorder [episodic paroxysmal anxiety]; F31.9 Bipolar disorder, unspecified; F17.200 Nicotine dependence, unspecified, uncomplicated; Z79.82 Long term (current) use of aspirin
CPT/HCPCS: 36415; 71045; 80048; 82550; 84484; 85007; 85025; 85045; 93005; 93010; 96361; 96374; 96375; 96376; 99284; J1170; J1200; J1642; J2405; J7030

== ENCOUNTER 2018-05-27 12:19 | Inpatient (IN) | payer MEDICARE ==
[2018-05-27] MEDS ORDERED: SODIUM CHLORIDE FLUSH SYRINGE 10 ML IV PRN (12:48)
[2018-05-27] MEDS ORDERED: MS CONTIN ER PO PRN (13:27)
[2018-05-27] MEDS ORDERED: NEURONTIN PO SCH (14:00)
[2018-05-27] MEDS: DILAUDID IV PRN ×3 (14:52→21:35)
[2018-05-27] MEDS: NEURONTIN PO SCH ×2 (14:53→19:35)
[2018-05-27] MEDS: D5NS 0.2% 1,000 ML IV SCH ×3 (14:54→23:27)
[2018-05-27] MEDS: BENADRYL IV PRN ×2 (14:57→21:44)
[2018-05-27 18:39] LABS: Basophils # (Auto) 0.1 K/mm3 (0.0-0.1); Eosinophils # (Auto) 0.6 K/mm3 (0.0-0.4); Eosinophils % (Auto) 6.9 % (0.0-4.3); Hematocrit 32.8 % (35.5-45.6); Hemoglobin 11.7 gm/dl (11.8-15.2); Lymphocytes # (Auto) 3.5 K/mm3 (1.2-5.4); Mean Corpuscular HGB Conc 36 % (32-34); Mean Corpuscular Volume 85 fl (84-94); Monocytes # (Auto) 0.7 K/mm3 (0.0-0.8); Monocytes % (Auto) 7.4 % (0.0-7.3); Platelet Count 407 K/mm3 (140-440); Red Blood Count 3.85 M/mm3 (3.65-5.03); Red Cell Distribution Width 16.2 % (13.2-15.2)
[2018-05-27] MEDS ORDERED: NON-FORMULARY (Clonazepam [Klonopin] 2 MG) PO PRN (18:51)
[2018-05-27 18:58] LABS: Alanine Aminotransferase 17 units/L (7-56); Albumin 4.6 g/dL (3.9-5); BUN/Creatinine Ratio 6; Blood Urea Nitrogen 4 mg/dL (9-20); Calcium 9.2 mg/dL (8.4-10.2); Hemolysis Index 11
[2018-05-27 18:59] LABS: % Iron Saturation 30.4 %
--- NOTE | 2018-05-27 19:00 | History and Physical Report ---
History of Present Illness Date of examination: 05/27/18 Date of admission: 05/27/18 13:33 Chief complaint: Sickle pain crisis. History of present illness: Patient presented to the office with CC of diffuse joint pain, unable o manage at home. pain rated at 10/10Exami showed that he was lethargic , dry skin, and mucus membranes.. Due to his sickle cell pain crisis level, iit was apparent , that he needed to, and was admitted to the hospital , for sxs control, and management.Patient will be treated with hydration, pain control,lab monitoring.once stabilized, he will be d/c home. Past History Past Medical History: anemia, DVT, seizures Social history: no significant social history, single, lives with family Medications and Allergies Allergies Allergy/AdvReac Type Severity Reaction Status Date / Time duloxetine [From Cymbalta] Allergy Shortness Verified 05/27/18 15:06 of Breath fentanyl Allergy Anaphylaxis Verified 12/22/17 21:36 influenza virus vaccine ts Allergy Hives Verified 05/27/18 15:37 [id number] (36 mos,up) [From Fluarix] iodine Allergy Anaphylaxis Verified 12/22/17 21:36 NSAIDS (Non-Steroidal Allergy Seizure Verified 12/22/17 21:36 Anti-Inflamma IV contrast Allergy Seizure Uncoded 08/28/17 12:56 seafood AdvReac Swelling Uncoded 08/28/17 12:56 Home Medications Medication Instructions Recorded Confirmed Last Taken Type Aspirin [Aspirin TAB] 325 mg PO QDAY 07/02/16 07/16/16 Unknown History Diphenhydramine HCl 50 mg PO 4XD 07/02/16 07/16/16 Unknown History Divalproex [Jennifer ANDRE] 500 mg PO BID 07/02/16 07/16/16 Unknown History Folic Acid 1 mg PO DAILY 07/02/16 07/16/16 Unknown History Gabapentin 1,200 mg PO TID 07/02/16 07/16/16 Unknown History HYDROmorphone 2 mg PO 4XD 07/02/16 07/16/16 Unknown History Hydroxyurea [Hydrea] 1,000 mg PO BID 07/02/16 07/16/16 Unknown History Keppra TAB 1,000 mg PO BID 07/02/16 07/16/16 Unknown History Quetiapine Fumarate [Seroquel] 150 mg PO HS 07/02/16 07/16/16 Unknown History clonazePAM [Klonopin] 2 mg PO DAILY PRN 07/02/16 07/16/16 Unknown History Melatonin 3 tab PO QDAY 07/16/16 07/16/16 Unknown History Doxycycline Hyclate [Doxycycline 100 mg PO BID #10 tab 12/26/17 Unknown Rx Hyclate TAB] Active Meds: Active Medications Apixaban (Eliquis) 5 mg PO Q12HR CYNDI; Protocol Diphenhydramine HCl (Benadryl) 25 mg IV Q6H PRN PRN Reason: Itching Last Admin: 05/27/18 14:57 Dose: 25 mg Documented by: Divalproex Sodium (Depakote Dr) 500 mg PO DAILY [facility] Last Admin: 05/27/18 15:52 Dose: 500 mg Documented by: Gabapentin (Neurontin) 600 mg PO TID [facility] Last Admin: 05/27/18 14:53 Dose: 600 mg Documented by: Hydromorphone HCl (Dilaudid) 3 mg IV Q2H PRN PRN Reason: Pain , Severe (7-10) Last Admin: 05/27/18 18:17 Dose: 3 mg Documented by: Hydroxyurea (Hydrea) 1,000 mg PO BID [facility] Dextrose/Sodium Chloride (D5ns 0.2%) 1,000 mls @ 250 mls/hr IV DIRECT [facility]ND[facility] Last Admin: 05/27/18 14:54 Dose: 250 mls/hr Documented by: Levetiracetam (Keppra) 1,000 mg PO BID [facility] Morphine Sulfate (Ms Contin Er) 30 mg PO Q8HR PRN PRN Reason: Pain, Moderate (4-6) Sertraline HCl (Zoloft) 50 mg PO QDAY [facility] Sodium Chloride (Sodium Chloride Flush Syringe 10 Ml) 10 ml IV BID [facility] Sodium Chloride (Sodium Chloride Flush Syringe 10 Ml) 10 ml IV PRN PRN PRN Reason: LINE FLUSH Review of Systems Constitutional: chronic pain Musculoskeletal: low back pain Psychiatric: anxiety Exam - Constitutional Vitals: Temp Pulse Resp BP Pulse Ox 98.4 F 78 16 115/75 99 05/27/18 16:55 05/27/18 16:55 05/27/18 16:55 05/27/18 16:55 05/27/18 16:55 General appearance: Present: severe distress, well-nourished - EENT Eyes: Present: PERRL ENT: hearing intact, clear oral mucosa - Neck Neck: Present: supple, normal ROM - Respiratory Respiratory effort: normal Respiratory: bilateral: CTA - Cardiovascular Heart Sounds: Present: S1 & S2. Absent: rub, click - Extremities Extremities: pulses symmetrical, No edema Peripheral Pulses: within normal limits - Abdominal General gastrointestinal: Present: soft, non-tender, non-distended, normal bowel sounds Male genitourinary: Present: deferred - Rectal Rectal Exam: deferred - Integumentary Integumentary: Present: clear, warm, dry - Musculoskeletal Musculoskeletal: gait normal, strength equal bilaterally - Psychiatric Psychiatric: appropriate mood/affect, intact judgment & insight - Neurologic Neurologic: CNII-XII intact, moves all extremities Results - Labs CBC & Chem 7: 05/27/18 18:15 Labs: Abnormal lab results 05/27/18 Range/Units 18:15 Hgb 11.7 L (11.8-15.2) gm/dl Hct 32.8 L (35.5-45.6) % MCHC 36 H (32-34) % RDW 16.2 H (13.2-15.2) % Lymph % (Auto) 38.0 H (13.4-35.0) % Anson % (Auto) 7.4 H (0.0-7.3) % Eos % (Auto) 6.9 H (0.0-4.3) % Eos # 0.6 H (0.0-0.4) K/mm3 Percent Retic 3.52 H (0.78-2.58) % Assessment and Plan - Patient Problems (1) Sickle cell anemia with coexistent alpha-thalassemia Current Visit: No Status: Acute Plan to address problem: hydration, pain control, mpnitor labs. (2) Anxiety Current Visit: No Status: Chronic Plan to address problem: supportive care. (3) Bipolar 1 disorder Current Visit: No Status: Chronic Plan to address problem: Supportive with his meds. (4) Seizure Current Visit: No Status: Chronic Plan to address problem: continue anti epileptic meds.
[2018-05-27] MEDS ORDERED: DILAUDID IV PRN ×2 (19:22→19:48)
[2018-05-27] MEDS ORDERED: MORPHINE PO PRN (19:37)
[2018-05-27] MEDS: HYDREA PO SCH (21:30)
[2018-05-27] MEDS: KEPPRA PO SCH (21:30)
[2018-05-27] MEDS: ELIQUIS PO SCH (21:31)
[2018-05-27] MEDS: SODIUM CHLORIDE FLUSH SYRINGE 10 ML IV SCH (21:35)
[2018-05-28] MEDS: DILAUDID IV PRN ×5 (02:58→18:14)
[2018-05-28] MEDS: D5NS 0.2% 1,000 ML IV SCH ×4 (02:59→17:12)
[2018-05-28] MEDS: BENADRYL IV PRN ×3 (06:09→18:13)
[2018-05-28] MEDS ORDERED: NON-FORMULARY (Folic Acid 1 MG) PO SCH (10:00)
[2018-05-28] MEDS ORDERED: ZOLOFT PO SCH (10:00)
[2018-05-28] MEDS ORDERED: FOLVITE PO SCH (10:00)
[2018-05-28] MEDS: HYDREA PO SCH (11:18)
[2018-05-28] MEDS: KEPPRA PO SCH (11:18)
[2018-05-28] MEDS: NEURONTIN PO SCH ×2 (11:18→15:05)
[2018-05-28] MEDS: ELIQUIS PO SCH (11:19)
[2018-05-28] MEDS: SODIUM CHLORIDE FLUSH SYRINGE 10 ML IV SCH (11:43)
[2018-05-28 16:40] VITALS: BP 118/60
[2018-05-28] MEDS ORDERED: FLUSH HEPARIN IV ONE (19:29)
--- NOTE | 2018-05-28 19:56 | Discharge Summary ---
Providers - Providers Date of Admission: 05/27/18 13:33 Date of discharge: 05/28/18 (Patient elected to leave AMA, despite all the possible repacaution of this, as explained to patient.) Attending physician: RACHEL GUPTA Primary care physician: RACHEL GUPTA Hospitalization Reason for admission: Sickle pain crisis. Condition: Fair Hospital course: Patient was seen ,today. He had indicated that he had an emergency at his house, and therefore , elected to leave AMA.He was urged to stay for some time to elapse before drive home, given , that he had just had some pain meds, about one and half hrs ago. Patient would not listen, instead, he signed AMA. Disposition: TO HOME OR SELFCARE - Discharge Diagnoses (1) Sickle cell anemia with coexistent alpha-thalassemia Status: Chronic (2) Anxiety Status: Chronic (3) Bipolar 1 disorder Status: Chronic (4) Seizure Status: Chronic Core Measure Documentation - Palliative Care Palliative Care/ Comfort Measures: Not Applicable - Core Measures Any of the following diagnoses?: history only Exam - Constitutional Vitals: Temp Pulse Resp BP Pulse Ox 98.2 F 82 18 118/60 98 05/28/18 16:19 05/28/18 16:19 05/28/18 16:19 05/28/18 16:19 05/28/18 16:19 General appearance: Present: no acute distress, well-nourished - EENT Eyes: Present: PERRL ENT: hearing intact, clear oral mucosa - Neck Neck: Present: supple, normal ROM - Respiratory Respiratory effort: normal Respiratory: bilateral: CTA - Cardiovascular Heart Sounds: Present: S1 & S2. Absent: rub, click - Extremities Extremities: pulses symmetrical, No edema Peripheral Pulses: within normal limits - Abdominal General gastrointestinal: Present: soft, non-tender, non-distended, normal bowel sounds Male genitourinary: Present: deferred - Rectal Rectal Exam: deferred - Integumentary Integumentary: Present: clear, warm, dry - Musculoskeletal Musculoskeletal: gait normal, strength equal bilaterally - Psychiatric Psychiatric: appropriate mood/affect, intact judgment & insight - Neurologic Neurologic: CNII-XII intact, moves all extremities Plan Activity: no driving until cleared by PCP Diet: regular Follow up with: RACHEL GUPTA DO [Primary Care Provider] - 7 Days
== END 2018-05-28 19:40 | disposition left against medical advice (07) | DRG 812 ==
LOC: 3A 12:19 → UNDOADMIN 12:19 → 3A 13:33
PROVIDERS: ADMIT Internal Medicine Hematology & Oncology; ATTEND Internal Medicine Hematology & Oncology
PROC: 0B1 Respiratory System, Bypass (ICD-10-PCS; principal; 2018-05-27)
DX: D57.419 Sickle-cell thalassemia, unspecified, with crisis (principal); R56.9 Unspecified convulsions; F31.9 Bipolar disorder, unspecified; F41.9 Anxiety disorder, unspecified; Z86.718 Personal history of other venous thrombosis and embolism; Z88.8 Allergy status to other drugs, medicaments and biological substances; Z91.013 Allergy to seafood; Z91.041 Radiographic dye allergy status; Z79.82 Long term (current) use of aspirin
CPT/HCPCS: 36415; 80053; 83550; 83615; 85025; 85045; 99406; G0378; J1170; J1200; J1642

== ENCOUNTER 2018-09-03 14:38 | Inpatient (IN) | payer MEDICARE ==
[2018-09-03] MEDS ORDERED: SODIUM CHLORIDE FLUSH SYRINGE 10 ML IV PRN (14:41)
[2018-09-03] MEDS: DILAUDID IV PRN ×2 (17:46→21:06)
[2018-09-03] MEDS: BENADRYL IV PRN (17:47)
[2018-09-03] MEDS: D5NS 0.2% 1,000 ML IV SCH ×2 (17:50→23:19)
[2018-09-03 19:36] LABS: Basophils # (Auto) 0.1 K/mm3 (0.0-0.1); Basophils % (Auto) 0.9 % (0.0-1.8); Eosinophils # (Auto) 0.4 K/mm3 (0.0-0.4); Eosinophils % (Auto) 4.3 % (0.0-4.3); Hematocrit 34.9 % (35.5-45.6); Hemoglobin 12.1 gm/dl (11.8-15.2); Lymphocytes # (Auto) 2.7 K/mm3 (1.2-5.4); Lymphocytes % (Auto) 30.7 % (13.4-35.0); Mean Corpuscular HGB Conc 35 % (32-34); Mean Corpuscular Volume 89 fl (84-94); Monocytes # (Auto) 0.6 K/mm3 (0.0-0.8); Monocytes % (Auto) 6.4 % (0.0-7.3); Platelet Count 417 K/mm3 (140-440); Red Blood Count 3.93 M/mm3 (3.65-5.03)
[2018-09-03 19:49] LABS: Alanine Aminotransferase 14 units/L (7-56); Albumin 4.5 g/dL (3.9-5); BUN/Creatinine Ratio 13; Blood Urea Nitrogen 9 mg/dL (9-20); Hemolysis Index 10
[2018-09-03] MEDS: ELIQUIS PO SCH (21:06)
--- NOTE | 2018-09-03 21:58 | History and Physical Report ---
History of Present Illness Date of examination: 09/03/18 Date of admission: 09/03/18 15:19 Chief complaint: Diffuse joint pain/crisis. History of present illness: patient presented to the office ,with CC of , and sxs with pain crisis. He was examined, and deemed necessary for admission , to the hospital , for sxs management/control. Once his pain crisis is controlled, he will be d/c home. Past History Past Medical History: anemia, seizures Social history: no significant social history, lives with family Family history: no significant family history Medications and Allergies Allergies Allergy/AdvReac Type Severity Reaction Status Date / Time duloxetine [From Cymbalta] Allergy Shortness Verified 05/27/18 15:06 of Breath fentanyl Allergy Anaphylaxis Verified 12/22/17 21:36 influenza virus vaccine ts Allergy Hives Verified 05/27/18 15:37 [id number] (36 mos,up) [From Fluarix] iodine Allergy Anaphylaxis Verified 12/22/17 21:36 NSAIDS (Non-Steroidal Allergy Seizure Verified 12/22/17 21:36 Anti-Inflamma IV contrast Allergy Seizure Uncoded 08/28/17 12:56 seafood AdvReac Swelling Uncoded 08/28/17 12:56 Home Medications Medication Instructions Recorded Confirmed Last Taken Type Aspirin [Aspirin TAB] 325 mg PO QDAY 07/02/16 07/16/16 Unknown History Diphenhydramine HCl 50 mg PO 4XD 07/02/16 07/16/[address] [DepZhangTE DR] 500 mg PO BID 07/02/16 07/16/16 Unknown History Folic Acid 1 mg PO DAILY 07/02/16 07/16/16 Unknown History Gabapentin 1,200 mg PO TID 07/02/16 07/16/16 Unknown History HYDROmorphone 2 mg PO 4XD 07/02/16 07/16/16 Unknown History Hydroxyurea [Hydrea] 1,000 mg PO BID 07/02/16 07/16/16 Unknown History Keppra TAB 1,000 mg PO BID 07/02/16 07/16/16 Unknown History Quetiapine Fumarate [Seroquel] 150 mg PO HS 07/02/16 07/16/16 Unknown History clonazePAM [Klonopin] 2 mg PO DAILY PRN 04/24/17 05/08/17 Unknown History Melatonin 3 tab PO QDAY 07/16/16 07/16/16 Unknown History Doxycycline Hyclate [Doxycycline 100 mg PO BID #10 tab 12/26/17 Unknown Rx Hyclate TAB] Active Meds: Active Medications Apixaban (Eliquis) 10 mg PO Q12HR CYNDI; Protocol Stop: 09/10/18 10:01 Last Admin: 09/03/18 21:06 Dose: 10 mg Documented by: Diphenhydramine HCl (Benadryl) 50 mg IV Q6H PRN PRN Reason: Itching Last Admin: 09/03/18 17:47 Dose: 50 mg Documented by: Folic Acid (Folvite) 1 mg PO QDAY [facility] Hydromorphone HCl (Dilaudid) 2 mg IV Q3H PRN PRN Reason: Pain , Severe (7-10) Last Admin: 09/03/18 21:06 Dose: 2 mg Documented by: Hydroxyurea (Hydrea) 1,000 mg PO BID [facility] Dextrose/Sodium Chloride (D5ns 0.2%) 1,000 mls @ 175 mls/hr IV DIRECT CYNDI Last Admin: 09/03/18 17:50 Dose: 175 mls/hr Documented by: Oxycodone HCl (Roxicodone) 30 mg PO Q6H PRN PRN Reason: Pain, Moderate (4-6) Sodium Chloride (Sodium Chloride Flush Syringe 10 Ml) 10 ml IV BID [facility] Sodium Chloride (Sodium Chloride Flush Syringe 10 Ml) 10 ml IV PRN PRN PRN Reason: LINE FLUSH Review of Systems Constitutional: fatigue, weakness, chronic pain Respiratory: cough Psychiatric: insomnia Exam - Constitutional Vitals: Temp Pulse Resp BP Pulse Ox 98.3 F 68 20 115/71 99 09/03/18 17:30 09/03/18 17:30 09/03/18 17:30 09/03/18 17:30 09/03/18 17:30 General appearance: Present: mild distress, well-nourished - EENT Eyes: Present: PERRL ENT: hearing intact, clear oral mucosa - Neck Neck: Present: supple, normal ROM - Respiratory Respiratory effort: normal Respiratory: bilateral: CTA - Cardiovascular Heart Sounds: Present: S1 & S2. Absent: rub, click - Extremities Extremities: pulses symmetrical, No edema Peripheral Pulses: within normal limits - Abdominal General gastrointestinal: Present: soft, non-tender, non-distended, normal bowel sounds Male genitourinary: Present: deferred - Rectal Rectal Exam: deferred - Integumentary Integumentary: Present: clear, warm, dry - Musculoskeletal Musculoskeletal: gait normal, strength equal bilaterally - Psychiatric Psychiatric: appropriate mood/affect, intact judgment & insight - Neurologic Neurologic: CNII-XII intact, moves all extremities Results - Labs CBC & Chem 7: 09/03/18 19:30 09/03/18 19:30 Labs: Abnormal lab results 09/03/18 09/03/18 09/03/18 Range/Units 19:30 19:30 19:30 Hct 34.9 L (35.5-45.6) % MCHC 35 H (32-34) % RDW 16.0 H (13.2-15.2) % Percent Retic 3.20 H (0.78-2.58) % Sodium 136 L (137-145) mmol/L Creatinine 0.7 L (0.8-1.5) mg/dL Glucose 175 H (75-100) mg/dL Lactate Dehydrogenase 187 H (91-180) units/L Assessment and Plan - Patient Problems (1) Sickle cell anemia Current Visit: No Status: Chronic Plan to address problem: Monitor labs. (2) Sickle cell pain crisis Current Visit: Yes Status: Acute (3) Dehydration Current Visit: Yes Status: Acute Plan to address problem: hydration. (4) Seizure Current Visit: No Status: Chronic Plan to address problem: Continue his Seizure meds. (5) Bipolar 1 disorder Current Visit: No Status: Chronic Plan to address problem: Continue his psych meds.
[2018-09-03] MEDS ORDERED: HYDREA PO SCH (22:00)
[2018-09-03] MEDS ORDERED: NON-FORMULARY (Clonazepam [Klonopin] 2 MG) PO PRN (22:48)
[2018-09-03] MEDS: SODIUM CHLORIDE FLUSH SYRINGE 10 ML IV SCH (23:05)
[2018-09-04] MEDS: BENADRYL IV PRN ×5 (00:08→21:14)
[2018-09-04] MEDS: DILAUDID IV PRN ×7 (00:09→21:14)
[2018-09-04] MEDS: D5NS 0.2% 1,000 ML IV SCH ×4 (04:37→21:15)
[2018-09-04] MEDS ORDERED: GABAPENTIN 1200 MG PO SCH (08:00)
[2018-09-04] MEDS: NEURONTIN PO SCH ×3 (09:54→21:00)
[2018-09-04] MEDS: KEPPRA PO SCH ×2 (09:54→21:13)
[2018-09-04] MEDS: FOLVITE PO SCH (09:55)
[2018-09-04] MEDS: HYDREA PO SCH ×2 (09:56→22:14)
[2018-09-04] MEDS: SODIUM CHLORIDE FLUSH SYRINGE 10 ML IV SCH ×2 (09:56→21:14)
[2018-09-04] MEDS ORDERED: MELATONIN PO SCH (10:00)
[2018-09-04] MEDS ORDERED: FOLVITE PO SCH (10:00)
[2018-09-04] MEDS ORDERED: KEPPRA 1000 MG PO SCH (10:00)
[2018-09-04] MEDS ORDERED: NON-FORMULARY (Folic Acid 1 MG) PO SCH (10:00)
[2018-09-04] MEDS: ELIQUIS PO SCH ×2 (11:59→21:12)
--- NOTE | 2018-09-04 16:33 | Progress Note ---
Assessment and Plan - Patient Problems (1) Sickle cell anemia Current Visit: No Status: Chronic Plan to address problem: Monitor labs. (2) Sickle cell pain crisis Current Visit: Yes Status: Acute (3) Dehydration Current Visit: Yes Status: Acute Plan to address problem: hydration. (4) Seizure Current Visit: No Status: Chronic Plan to address problem: Continue his Seizure meds. (5) Bipolar 1 disorder Current Visit: No Status: Chronic Plan to address problem: Continue his psych meds. Subjective Date of service: 09/04/18 Interval history: Patient seen/examined, resting in bed, records reviewed, case d/w patient. Will continue with current management. Objective - Constitutional Vitals: Vital Signs - 12hr 09/04/18 09/04/18 05:53 11:39 Temperature 98.0 F 98.0 F Pulse Rate 76 76 Respiratory 18 20 Rate Blood Pressure 103/57 104/60 O2 Sat by Pulse 98 98 Oximetry General appearance: Present: mild distress, well-nourished - EENT Eyes: PERRL, EOM intact ENT: hearing intact, clear oral mucosa Ears: bilateral: normal - Neck Neck: supple, normal ROM - Respiratory Respiratory effort: normal Respiratory: bilateral: CTA - Breasts Breasts: deferred - Cardiovascular Rhythm: regular Heart Sounds: Present: S1 & S2. Absent: gallop, rub Extremities: pulses intact, No edema, normal color, Full ROM - Gastrointestinal General gastrointestinal: Present: soft, non-tender, non-distended, normal bowel sounds Rectal Exam: deferred - Genitourinary Male genitourinary: deferred - Integumentary Integumentary: clear, warm, dry - Musculoskeletal Musculoskeletal: 1, strength equal bilaterally - Neurologic Neurologic: moves all extremities - Psychiatric Psychiatric: memory intact, appropriate mood/affect, intact judgment & insight - Labs CBC & Chem 7: 09/03/18 19:30 09/03/18 19:30 Labs: Abnormal lab results 09/03/18 09/03/18 09/03/18 Range/Units 19:30 19:30 19:30 Hct 34.9 L (35.5-45.6) % MCHC 35 H (32-34) % RDW 16.0 H (13.2-15.2) % Percent Retic 3.20 H (0.78-2.58) % Sodium 136 L (137-145) mmol/L Creatinine 0.7 L (0.8-1.5) mg/dL Glucose 175 H (75-100) mg/dL Lactate Dehydrogenase 187 H (91-180) units/L Medications & Allergies - Medications Allergies/Adverse Reactions: Allergies duloxetine [From Cymbalta] Allergy (Verified 05/27/18 15:06) Shortness of Breath suicidal thoughts; seizure fentanyl Allergy (Verified 12/22/17 21:36) Anaphylaxis influenza virus vaccine ts [id number] (36 mos,up) [From Fluarix] Allergy (Verifi ed 05/27/18 15:37) Hives Flu vaccine Allergy- Hives and SOB reaction iodine Allergy (Verified 12/22/17 21:36) Anaphylaxis NSAIDS (Non-Steroidal Anti-Inflamma Allergy (Verified 12/22/17 21:36) Seizure IV contrast Allergy (Uncoded 08/28/17 12:56) Seizure seafood Adverse Reaction (Uncoded 08/28/17 12:56) Swelling Home Medications: Home Medications Medication Instructions Recorded Confirmed Last Taken Type Aspirin [Aspirin TAB] 325 mg PO QDAY 07/02/16 07/16/16 Unknown History Diphenhydramine HCl 50 mg PO 4XD 07/02/16 07/16/16 Unknown History Divalproex [Jennifer ANDRE] 500 mg PO BID 07/02/16 07/16/16 Unknown History Folic Acid 1 mg PO DAILY 07/02/16 07/16/16 Unknown History Gabapentin 1,200 mg PO TID 07/02/16 07/16/16 Unknown History HYDROmorphone 2 mg PO 4XD 07/02/16 07/16/16 Unknown History Hydroxyurea [Hydrea] 1,000 mg PO BID 07/02/16 07/16/16 Unknown History Keppra TAB 1,000 mg PO BID 07/02/16 07/16/16 Unknown History Quetiapine Fumarate [Seroquel] 150 mg PO HS 07/02/16 07/16/16 Unknown History clonazePAM [Klonopin] 2 mg PO DAILY PRN 07/02/16 07/16/16 Unknown History Melatonin 3 tab PO QDAY 07/16/16 07/16/16 Unknown History Doxycycline Hyclate [Doxycycline 100 mg PO BID #10 tab 12/26/17 Unknown Rx Hyclate TAB] Active Medications: Generic Name Dose Route Start Last Admin Trade Name Freq PRN Reason Stop Dose Admin Apixaban 10 mg 09/03/18 22:00 09/04/18 11:59 Eliquis PO 09/10/18 10:01 5 mg Q12HR CYNDI Administration Protocol Apixaban 5 mg 09/10/18 22:00 Eliquis PO Q12HR CYNDI Protocol Clonazepam 2 mg 09/03/18 22:55 Klonopin PO DAILY PRN SEIZURE Diphenhydramine HCl 25 mg 09/04/18 12:11 09/04/18 15:14 Benadryl IV 25 mg Q3H PRN Administration Itching Divalproex Sodium 500 mg 09/04/18 10:00 09/04/18 09:[address] PO 500 mg BID CYNDI Administration Folic Acid 1 mg 09/04/18 10:00 09/04/18 09:55 Folvite PO 1 mg DAILY CYNDI Administration Gabapentin 1,200 mg 09/04/18 08:00 09/04/18 14:20 Neurontin PO 1,200 mg TID CYNDI Administration Hydromorphone HCl 2 mg 09/03/18 14:41 09/04/18 15:13 Dilaudid IV 2 mg Q3H PRN Administration Pain , Severe (7-10) Hydroxyurea 1,000 mg 09/04/18 10:00 09/04/18 09:56 Hydrea PO 1,000 mg BID CYNDI Administration Dextrose/Sodium Chloride 1,000 mls @ 175 mls/hr 09/03/18 16:00 09/04/18 10:44 D5ns 0.2% IV 175 mls/hr DIRECT CYNDI Administration Levetiracetam 1,000 mg 09/04/18 10:00 09/04/18 09:54 Keppra PO 1,000 mg BID CYNDI Administration Miscellaneous Medication 3 tab 09/04/18 10:00 Melatonin [Melatonin 3mg Tab] PO QDAY CYNDI Oxycodone HCl 30 mg 09/03/18 14:57 Roxicodone PO Q6H PRN Pain, Moderate (4-6) Quetiapine Fumarate 150 mg 09/04/18 22:00 Seroquel PO HS CYNDI Sodium Chloride 10 ml 09/03/18 22:00 09/04/18 09:56 Sodium Chloride Flush Syringe 10 Ml IV 10 ml BID CYNDI Administration Sodium Chloride 10 ml 09/03/18 14:41 09/04/18 06:40 Sodium Chloride Flush Syringe 10 Ml IV 10 ml PRN PRN Administration LINE FLUSH
[2018-09-04] MEDS: ROXICODONE PO PRN (17:19)
--- NOTE | 2018-09-04 17:22 | XRay Report ---
PROCEDURE: XR CHEST 1V AP TECHNIQUE: Chest radiograph single view. HISTORY: COUGH COMPARISONS: None . FINDINGS: Heart: Normal. Mediastinum/Vessels: Normal. Lungs/Pleural space: Normal. Bony thorax: No acute osseous abnormality. Life support devices: There is a right chest port catheter tip at the SVC. IMPRESSION: Chest port in stable position No acute findings in the chest This document is electronically signed by Grey Linton MD., September 04 2018 05:20:55 PM ET
[2018-09-05] MEDS: DILAUDID IV PRN ×5 (01:32→17:37)
[2018-09-05] MEDS: BENADRYL IV PRN ×4 (01:32→14:06)
[2018-09-05] MEDS: ROXICODONE PO PRN (01:33)
[2018-09-05] MEDS: D5NS 0.2% 1,000 ML IV SCH ×2 (04:50→14:12)
[2018-09-05] MEDS: KEPPRA PO SCH (09:24)
[2018-09-05] MEDS: FOLVITE PO SCH (09:24)
[2018-09-05] MEDS: NEURONTIN PO SCH ×2 (09:25→14:19)
[2018-09-05] MEDS: ELIQUIS PO SCH (09:25)
[2018-09-05] MEDS: SODIUM CHLORIDE FLUSH SYRINGE 10 ML IV SCH (12:48)
[2018-09-05] MEDS: HYDREA PO SCH (12:54)
[2018-09-05 13:48] VITALS: BP 103/57
--- NOTE | 2018-09-05 19:01 | Discharge Summary ---
Providers - Providers Date of Admission: 09/03/18 15:19 Date of discharge: 09/05/18 Attending physician: RACHEL GUPTA Primary care physician: RACHEL GUPTA Hospitalization Reason for admission: SCD/Pain crisis Condition: Stable Hospital course: Patient presented to the office with CC of joint pain, unable to control, with his home meds.Patient admitted for sxs management, and control. He was treated with hydration, pain control. His retic count showed mild elevation .Patient seen, resting in bed, NAD, He will be discharged today. Disposition: DC-01 TO HOME OR SELFCARE - Discharge Diagnoses (1) Sickle cell anemia Status: Chronic (2) Sickle cell pain crisis Status: Resolved (3) Dehydration Status: Resolved (4) Seizure Status: Chronic (5) Bipolar 1 disorder Status: Chronic Core Measure Documentation - Palliative Care Palliative Care/ Comfort Measures: Not Applicable - Core Measures Any of the following diagnoses?: history only Exam - Constitutional Vitals: Temp Pulse Resp BP Pulse Ox 98.5 F 67 20 103/57 99 09/05/18 12:13 09/05/18 12:13 09/05/18 12:13 09/05/18 12:13 09/05/18 14:00 General appearance: Present: no acute distress, well-nourished - EENT Eyes: Present: PERRL ENT: hearing intact, clear oral mucosa - Neck Neck: Present: supple, normal ROM - Respiratory Respiratory effort: normal Respiratory: bilateral: CTA - Cardiovascular Heart Sounds: Present: S1 & S2. Absent: rub, click - Extremities Extremities: pulses symmetrical, No edema Peripheral Pulses: within normal limits - Abdominal General gastrointestinal: Present: soft, non-tender, non-distended, normal bowel sounds Male genitourinary: Present: deferred - Rectal Rectal Exam: deferred - Integumentary Integumentary: Present: clear, warm, dry - Musculoskeletal Musculoskeletal: gait normal, strength equal bilaterally - Psychiatric Psychiatric: appropriate mood/affect, intact judgment & insight - Neurologic Neurologic: CNII-XII intact, moves all extremities Plan Activity: no restrictions Diet: regular Follow up with: RACHEL GUPTA DO [Primary Care Provider] - 7 Days
[2018-09-05] MEDS ORDERED: TRIPLE ANTIBIOTIC TP ONE (20:00)
[2018-09-05] MEDS ORDERED: FLUSH HEPARIN IV ONE (20:00)
[2018-09-10] MEDS ORDERED: ELIQUIS PO SCH (22:00)
== END 2018-09-05 20:20 | disposition home or self-care (01) | DRG 812 ==
LOC: UNDOADMIN 14:38 → 3A 14:38
PROVIDERS: ADMIT Internal Medicine Hematology & Oncology; ATTEND Internal Medicine Hematology & Oncology
DX: D57.00 Hb-SS disease with crisis, unspecified (principal); D64.9 Anemia, unspecified; F31.9 Bipolar disorder, unspecified; E86.0 Dehydration; Z88.8 Allergy status to other drugs, medicaments and biological substances; Z88.6 Allergy status to analgesic agent; Z88.7 Allergy status to serum and vaccine; Z91.041 Radiographic dye allergy status; Z91.013 Allergy to seafood; Z79.82 Long term (current) use of aspirin; Z79.899 Other long term (current) drug therapy
CPT/HCPCS: 36415; 71045; 80053; 83615; 85025; 85045; G0378; A6250; J1170; J1200; J1642

== ENCOUNTER 2018-12-28 10:53 | Emergency (ER) | payer MEDICARE ==
--- NOTE | 2018-12-28 11:21 | Event Note ---
ED Screening Note Date of service: 12/28/18 Time: 11:17 ED Screening Note: This is a 33 y.o. M. that presents to the ER with chest pain and BLE pain for 2- 3 days. PMH of sickle cell, depression, seizure Reports worsening pain this morning. Denies abdominal pain, cough, fever, or SOB This initial assessment/diagnostic orders/clinical plan/treatment(s) is/are subject to change based on patients health status, clinical progression and re- assessment by fellow clinical providers in the ED. Further treatment and workup at subsequent clinical providers discretion. Patient/guardian urged not to elope from the ED as their condition may be serious if not clinically assessed and managed. Initial orders include: Labs and EKG
[2018-12-28 12:03] LABS: Basophils % (Auto) 0.5 % (0.0-1.8); Eosinophils # (Auto) 0.7 K/mm3 (0.0-0.4); Hemoglobin 13.5 gm/dl (11.8-15.2); Lymphocytes # (Auto) 1.4 K/mm3 (1.2-5.4); Lymphocytes % (Auto) 14.5 % (13.4-35.0); Mean Corpuscular HGB Conc 36 % (32-34); Mean Corpuscular Volume 89 fl (84-94); Monocytes # (Auto) 0.8 K/mm3 (0.0-0.8); Monocytes % (Auto) 8.6 % (0.0-7.3); Platelet Count 462 K/mm3 (140-440); Red Blood Count 4.29 M/mm3 (3.65-5.03); Red Cell Distribution Width 15.2 % (13.2-15.2)
[2018-12-28] MEDS ORDERED: BENADRYL IV ONE (12:47)
[2018-12-28] MEDS ORDERED: DILAUDID IV ONE ×4 (12:47→15:46)
[2018-12-28] MEDS ORDERED: D5NS 0.2% 1,000 ML IV SCH (13:00)
--- NOTE | 2018-12-28 14:16 | Emergency Department Report ---
ED General Adult HPI - General Chief complaint: Sickle Cell Crisis Stated complaint: CHEST PAIN/SSC/ELIEL Time Seen by Provider: 12/28/18 11:16 Source: patient, family Mode of arrival: Wheelchair Limitations: No Limitations - History of Present Illness Initial comments: 33-year-old male with a past medical history sickle cell SC, bipolar, chronic chest pain, splenectomy, and right chest wall port since the hospital complaining of pain secondary to sickle cell crisis with a past 3 days. Patient taken Percocet 10/325 and oxycodone 30 mg without improvement. Patient did not have the medications this morning because he was driving. He complains of pain to bilateral chest and ribs that is worse with deep inspiration. Patient also complains of generalized body pain. Similar symptoms in the past with sickle cell crisis. He denies fever or cough. Shadowgraph Operator: Dr. Patel Severity scale (0 -10): 9 - Related Data Home Medications Medication Instructions Recorded Confirmed Last Taken Aspirin [Aspirin TAB] 325 mg PO QDAY 07/02/16 07/16/16 Unknown Diphenhydramine HCl 50 mg PO 4XD 07/02/16 07/16/16 Unknown Divalproex [DepJuventino ANDRE] 500 mg PO BID 07/02/16 07/16/16 Unknown Folic Acid 1 mg PO DAILY 07/02/16 07/16/16 Unknown Gabapentin 1,200 mg PO TID 07/02/16 07/16/16 Unknown HYDROmorphone 2 mg PO 4XD 07/02/16 07/16/16 Unknown Hydroxyurea [Hydrea] 1,000 mg PO BID 07/02/16 07/16/16 Unknown Keppra TAB 1,000 mg PO BID 07/02/16 07/16/16 Unknown Quetiapine Fumarate [Seroquel] 150 mg PO HS 07/02/16 07/16/16 Unknown clonazePAM [Klonopin] 2 mg PO DAILY PRN 07/02/16 07/16/16 Unknown Melatonin 3 tab PO QDAY 07/16/16 07/16/16 Unknown Previous Rx's Medication Instructions Recorded Last Taken Type Doxycycline Hyclate [Doxycycline 100 mg PO BID #10 tab 12/26/17 Unknown Rx Hyclate TAB] Allergies Allergy/AdvReac Type Severity Reaction Status Date / Time duloxetine [From Cymbalta] Allergy Shortness Verified 12/28/18 10:58 of Breath fentanyl Allergy Anaphylaxis Verified 12/28/18 10:58 influenza virus vaccine ts Allergy Hives Verified 12/28/18 10:58 [id number] (36 mos,up) [From Fluarix] iodine Allergy Anaphylaxis Verified 12/28/18 10:58 NSAIDS (Non-Steroidal Allergy Seizure Verified 12/28/18 10:58 Anti-Inflamma IV contrast Allergy Seizure Uncoded 08/28/17 12:56 seafood AdvReac Swelling Uncoded 08/28/17 12:56 ED Review of Systems ROS: Stated complaint: CHEST PAIN/SSC/ELIEL Other details as noted in HPI Comment: All other systems reviewed and negative ED Past Medical Hx - Past Medical History Hx Congestive Heart Failure: No Hx Diabetes: No Hx Sickle Cell Disease: Yes Hx Headaches / Migraines: Yes Hx Seizures: Yes Hx Psychiatric Treatment: Yes (panic attackes, depression, bipolar) Hx Asthma: No Hx COPD: No Additional medical history: chronic chest pain, PALPITATIONS - Surgical History Additional Surgical History: SPLEENECTOMY, RIGHT SIDE PORT, BIOPSY - Social History Smoking Status: Former Smoker Substance Use Type: None - Medications Home Medications: Home Medications Medication Instructions Recorded Confirmed Last Taken Type Aspirin [Aspirin TAB] 325 mg PO QDAY 07/02/16 07/16/16 Unknown History Diphenhydramine HCl 50 mg PO 4XD 07/02/16 07/16/16 Unknown History Divalproex [Jennifer NADRE] 500 mg PO BID 07/02/16 07/16/16 Unknown History Folic Acid 1 mg PO DAILY 07/02/16 07/16/16 Unknown History Gabapentin 1,200 mg PO TID 07/02/16 07/16/16 Unknown History HYDROmorphone 2 mg PO 4XD 07/02/16 07/16/16 Unknown History Hydroxyurea [Hydrea] 1,000 mg PO BID 07/02/16 07/16/16 Unknown History Keppra TAB 1,000 mg PO BID 07/02/16 07/16/16 Unknown History Quetiapine Fumarate [Seroquel] 150 mg PO HS 07/02/16 07/16/16 Unknown History clonazePAM [Klonopin] 2 mg PO DAILY PRN 07/02/16 07/16/16 Unknown History Melatonin 3 tab PO QDAY 07/16/16 07/16/16 Unknown History Doxycycline Hyclate [Doxycycline 100 mg PO BID #10 tab 12/26/17 Unknown Rx Hyclate TAB] ED Physical Exam - General Limitations: No Limitations - Other Other exam information: Gen.: No acute distress Head: Atraumatic Eyes: Normal appearance ENT: Moist mucous membranes Neck: Normal appearance, no posterior midline tenderness, no meningismus Chest: Clear to auscultation bilaterally Cardiovascular: Regular rate and rhythm Abdomen: Normal appearance, soft, nontender, no rebound or guarding, normal bowel sounds Back: Normal appearance, nontender Extremity: Full range of motion, normal appearance Neuro: Alert O x 3, clear speech, no focal motor or sensory deficit Psychiatric: Appropriate Skin: No rash ED Course Vital Signs 12/28/18 12/28/18 12/28/18 11:16 12:29 12:30 Temperature 99 F Pulse Rate 89 Respiratory 20 Rate Blood Pressure 134/65 119/70 O2 Sat by Pulse 99 99 99 Oximetry 12/28/18 12/28/18 12/28/18 12:45 13:00 13:15 Temperature Pulse Rate Respiratory Rate Blood Pressure 119/70 115/73 115/73 O2 Sat by Pulse 98 97 98 Oximetry 12/28/18 12/28/18 12/28/18 13:30 13:45 14:01 Temperature Pulse Rate Respiratory Rate Blood Pressure 115/73 115/73 113/56 O2 Sat by Pulse 96 93 100 Oximetry ED Medical Decision Making - Lab Data Result diagrams: 12/28/18 11:38 Lab Results 12/28/18 Range/Units 11:38 WBC 9.8 (4.5-11.0) K/mm3 RBC 4.29 (3.65-5.03) M/mm3 Hgb 13.5 (11.8-15.2) gm/dl Hct 38.0 (35.5-45.6) % MCV 89 (84-94) fl MCH 31 (28-32) pg MCHC 36 H (32-34) % RDW 15.2 (13.2-15.2) % Plt Count 462 H (140-440) K/mm3 Lymph % (Auto) 14.5 (13.4-35.0) % Thurston % (Auto) 8.6 H (0.0-7.3) % Eos % (Auto) 7.0 H (0.0-4.3) % Baso % (Auto) 0.5 (0.0-1.8) % Lymph # 1.4 (1.2-5.4) K/mm3 Thurston # 0.8 (0.0-0.8) K/mm3 Eos # 0.7 H (0.0-0.4) K/mm3 Baso # 0.0 (0.0-0.1) K/mm3 Seg Neutrophils % 69.4 (40.0-70.0) % Seg Neutrophils # 6.8 (1.8-7.7) K/mm3 Percent Retic 4.30 H (0.78-2.58) % - EKG Data -: EKG Interpreted by Nd EKG shows normal: sinus rhythm, axis (qrs 29), QRS complexes (qrsd 85), ST-T waves (no stemi/t inv) Rate: normal (75) - EKG Data When compared to previous EKG there are: no significant change - Radiology Data Radiology results: report reviewed CHEST 2 VIEWS INDICATION / CLINICAL INFORMATION: sickle cell, bilateral chest pain. COMPARISON: 09/03/2018 FINDINGS: SUPPORT DEVICES: Port-A-Cath remains on the right. HEART / MEDIASTINUM: No significant abnormality. LUNGS / PLEURA: Lungs and pleural spaces remain clear except for slight scarring at the bases. No pneumothorax. ADDITIONAL FINDINGS: No significant additional findings. IMPRESSION: 1. No acute findings. - Medical Decision Making Patient feels better with ED treatment. No signs of infection, leukocytosis, or anemia. Mild elevation retake count. Patient feels better after multiple with allotted doses allotted doses and Benadryl. Discharged to follow up with hematology and to continue current meds - Differential Diagnosis sickle cell crisis, anemia, drug-seeking, infection, pneumonia, acute chest Critical Care Time: No Critical care attestation.: If time is entered above; I have spent that time in minutes in the direct care of this critically ill patient, excluding procedure time. ED Disposition Clinical Impression: Sickle cell crisis Disposition: DC-01 TO HOME OR SELFCARE Is pt being admited?: No Condition: Stable Instructions: Sickle Cell Crisis (ED) Additional Instructions: Take your current meds as prescribed. Follow-up with your doctor or with the doctor/clinic provided. Return if symptoms worsen as indicated by your discharge instructions. Referrals: RACHEL GUPTA DO [Staff Physician] - 2-3 Days Time of Disposition: 17:26
--- NOTE | 2018-12-28 14:21 | XRay Report ---
CHEST 2 VIEWS INDICATION / CLINICAL INFORMATION: sickle cell, bilateral chest pain. COMPARISON: 09/03/2018 FINDINGS: SUPPORT DEVICES: Port-A-Cath remains on the right. HEART / MEDIASTINUM: No significant abnormality. LUNGS / PLEURA: Lungs and pleural spaces remain clear except for slight scarring at the bases. No pne umothorax. ADDITIONAL FINDINGS: No significant additional findings. IMPRESSION: 1. No acute findings. Signer Name: Shawn Garnett MD Signed: 12/28/2018 2:17 PM Workstation Name: [id number]
[2018-12-28] MEDS ORDERED: FLUSH HEPARIN IV ONE ×2 (17:54→18:00)
[2018-12-28 18:00] VITALS: BP 112/67
== END 2018-12-28 18:01 | disposition home or self-care (01) ==
LOC: ED 10:53
DX: D57.00 Hb-SS disease with crisis, unspecified (principal); F31.9 Bipolar disorder, unspecified; G43.909 Migraine, unspecified, not intractable, without status migrainosus; F41.0 Panic disorder [episodic paroxysmal anxiety]; G89.29 Other chronic pain; Z79.82 Long term (current) use of aspirin; Z79.899 Other long term (current) drug therapy; Z91.013 Allergy to seafood; Z88.7 Allergy status to serum and vaccine; Z91.041 Radiographic dye allergy status; Z87.891 Personal history of nicotine dependence; Z90.81 Acquired absence of spleen; Z88.8 Allergy status to other drugs, medicaments and biological substances
CPT/HCPCS: 36415; 71046; 85025; 85045; 93005; 93010; 96374; 96375; 96376; 99284; J1170; J1200; J1642

== ENCOUNTER 2019-01-09 14:35 | Inpatient (IN) | payer MEDICARE ==
[2019-01-09 17:00] LABS: Basophils # (Auto) 0.1 K/mm3 (0.0-0.1); Basophils % (Auto) 0.5 % (0.0-1.8); Eosinophils # (Auto) 0.2 K/mm3 (0.0-0.4); Hematocrit 38.7 % (35.5-45.6); Hemoglobin 13.8 gm/dl (11.8-15.2); Lymphocytes # (Auto) 2.8 K/mm3 (1.2-5.4); Lymphocytes % (Auto) 26.7 % (13.4-35.0); Mean Corpuscular HGB Conc 36 % (32-34); Mean Corpuscular Volume 88 fl (84-94); Monocytes # (Auto) 0.5 K/mm3 (0.0-0.8); Monocytes % (Auto) 5.1 % (0.0-7.3); Platelet Count 467 K/mm3 (140-440); Red Blood Count 4.42 M/mm3 (3.65-5.03); Red Cell Distribution Width 15.4 % (13.2-15.2)
[2019-01-09 17:21] LABS: Alanine Aminotransferase 9 units/L (7-56); Albumin 5.1 g/dL (3.9-5); BUN/Creatinine Ratio 12; Blood Urea Nitrogen 7 mg/dL (9-20); Calcium 9.7 mg/dL (8.4-10.2); Hemolysis Index 9
[2019-01-09] MEDS: HYDROmorphone 1 MG/1 ML INJ IV SCH ×3 (18:59→22:32)
[2019-01-09] MEDS: diphenhydrAMINE 50 MG/ML VIAL IV SCH ×2 (18:59→22:33)
[2019-01-09] MEDS: oxyCODONE 5 MG TAB PO SCH (19:04)
[2019-01-09] MEDS: D5W/0.2% NACL 1,000 ML IV SCH ×2 (19:08→22:48)
[2019-01-09] MEDS: KETOROLAC 30 MG/1 ML INJ IV SCH (19:44)
[2019-01-09] MEDS: GABAPENTIN 400 MG CAP PO SCH (20:05)
[2019-01-09] MEDS: ZIPRASIDONE 40 MG CAP PO SCH (22:29)
[2019-01-09] MEDS: POLYETHYLENE GLYCOL 3350 17 GM POWDER PO SCH (22:29)
[2019-01-09] MEDS: APIXABAN 5 MG TAB PO SCH (22:30)
[2019-01-09] MEDS: levETIRAcetam 500 MG TAB PO SCH (22:33)
[2019-01-09] MEDS: HYDROXYUREA 500 MG CAP PO SCH (22:33)
--- NOTE | 2019-01-09 23:25 | History and Physical Report ---
History of Present Illness Date of examination: 01/09/19 Date of admission: 01/09/19 15:40 Chief complaint: SCD/Pain crisis, anemia. History of present illness: Patient seen/examined, resting in bed, records reviewed, and discussed with patient.He presented ,to the office, with CC of uncontrollable pain, he was examined, and admitted ,for sxs management, and control. He has multiple ,other med problems, and will be treated with pain meds, hydration, and monitor l abs.Once stabilized, will d/c home. Past History Past Medical History: anemia, seizures Social history: no significant social history, , lives with family Medications and Allergies Allergies Allergy/AdvReac Type Severity Reaction Status Date / Time duloxetine [From Cymbalta] Allergy Shortness Verified 12/28/18 10:58 of Breath fentanyl Allergy Anaphylaxis Verified 12/28/18 10:58 influenza virus vaccine ts Allergy Hives Verified 12/28/18 10:58 [id number] (36 mos,up) [From Fluarix] iodine Allergy Anaphylaxis Verified 12/28/18 10:58 NSAIDS (Non-Steroidal Allergy Seizure Verified 12/28/18 10:58 Anti-Inflamma IV contrast Allergy Seizure Uncoded 08/28/17 12:56 seafood AdvReac Swelling Uncoded 08/28/17 12:56 Home Medications Medication Instructions Recorded Confirmed Last Taken Type Aspirin [Aspirin TAB] 325 mg PO QDAY 07/02/16 07/16/16 Unknown History Diphenhydramine HCl 50 mg PO 4XD 07/02/16 07/16/16 Unknown History Divalproex [Jennifer ANDRE] 500 mg PO BID 07/02/16 07/16/16 Unknown History Folic Acid 1 mg PO DAILY 07/02/16 07/16/16 Unknown History Gabapentin 1,200 mg PO TID 07/02/16 07/16/16 Unknown History HYDROmorphone 2 mg PO 4XD 07/02/16 07/16/16 Unknown History Hydroxyurea [Hydrea] 1,000 mg PO BID 07/02/16 07/16/16 Unknown History Keppra TAB 1,000 mg PO BID 07/02/16 07/16/16 Unknown History Quetiapine Fumarate [Seroquel] 150 mg PO HS 07/02/16 07/16/16 Unknown History clonazePAM [Klonopin] 2 mg PO DAILY PRN 07/02/16 07/16/16 Unknown History Melatonin 3 tab PO QDAY 07/16/16 07/16/16 Unknown History Doxycycline Hyclate [Doxycycline 100 mg PO BID #10 tab 12/26/17 Unknown Rx Hyclate TAB] Active Meds: Active Medications Apixaban (Eliquis) 5 mg PO Q12HR [facility]; Protocol Last Admin: 01/09/19 22:30 Dose: 5 mg Documented by: Diphenhydramine HCl (Benadryl) 12.5 mg IV Q3H [facility] Last Admin: 01/09/19 22:33 Dose: 12.5 mg Documented by: Divalproex Sodium (Depakote Dr) 500 mg PO BID [facility] Escitalopram Oxalate (Lexapro) 20 mg PO QDAY [facility] Gabapentin (Gabapentin) 1,200 mg PO TID [facility] Hydromorphone HCl (Dilaudid) 2 mg IV Q3H [facility] Last Admin: 01/09/19 22:32 Dose: 2 mg Documented by: Hydroxyurea (Hydroxyurea) 1,000 mg PO BID [facility] Last Admin: 01/09/19 22:33 Dose: 1,000 mg Documented by: Hydroxyurea (Hydroxyurea) 1,000 mg PO BID [facility] Dextrose/Sodium Chloride (D5ns 0.2%) 1,000 mls @ 250 mls/hr IV DIRECT [facility] Last Admin: 01/09/19 22:48 Dose: 250 mls/hr Documented by: Ketorolac Tromethamine (Toradol) 30 mg IV Q6HR [facility] Stop: 01/11/19 00:01 Last Admin: 01/09/19 19:44 Dose: Not Given Documented by: Ketorolac Tromethamine (Toradol) 30 mg IV Q6HR [facility] Stop: 01/11/19 06:01 Levetiracetam (Keppra) 1,000 mg PO BID [facility] Last Admin: 01/09/19 22:33 Dose: 1,000 mg Documented by: Miscellaneous Medication (Folic Acid) 1 mg PO DAILY [facility] Miscellaneous Medication (Gabapentin) 1,200 mg PO TID [facility] Miscellaneous Medication (Keppra Tab) 1,000 mg PO BID [facility] Oxycodone HCl (Roxicodone) 30 mg PO Q6HR [facility] Last Admin: 11/01/19 19:04 Dose: 30 mg Documented by: Polyethylene Glycol (Miralax [id number]) 17 gm PO BID [facility] Last Admin: 01/09/19 22:29 Dose: Not Given Documented by: Quetiapine Fumarate (Seroquel) 150 mg PO HS [facility] Sodium Chloride (Sodium Chloride Flush Syringe 10 Ml) 10 ml IV BID [facility] Last Admin: 01/09/19 22:34 Dose: 10 ml Documented by: Sodium Chloride (Sodium Chloride Flush Syringe 10 Ml) 10 ml IV PRN PRN PRN Reason: LINE FLUSH Ziprasidone (Geodon) 40 mg PO QHS [facility] Last Admin: 01/09/19 22:29 Dose: Not Given Documented by: Review of Systems Constitutional: chronic pain Respiratory: shortness of breath Musculoskeletal: low back pain Psychiatric: anxiety, insomnia, depression Exam - Constitutional Vitals: Temp Pulse Resp BP Pulse Ox 98.3 F 66 19 121/77 100 01/09/19 21:46 01/09/19 21:46 01/09/19 21:46 01/09/19 21:46 01/09/19 22:34 General appearance: Present: mild distress, well-nourished - EENT Eyes: Present: PERRL ENT: hearing intact, clear oral mucosa - Neck Neck: Present: supple, normal ROM - Respiratory Respiratory effort: normal Respiratory: bilateral: CTA - Cardiovascular Heart Sounds: Present: S1 & S2. Absent: rub, click - Extremities Extremities: pulses symmetrical, No edema Peripheral Pulses: within normal limits - Abdominal General gastrointestinal: Present: soft, non-tender, non-distended, normal bowel sounds Male genitourinary: Present: deferred - Rectal Rectal Exam: deferred - Integumentary Integumentary: Present: clear, warm, dry - Musculoskeletal Musculoskeletal: gait normal, strength equal bilaterally - Psychiatric Psychiatric: appropriate mood/affect, intact judgment & insight - Neurologic Neurologic: CNII-XII intact, moves all extremities Results - Labs CBC & Chem 7: 01/09/19 16:25 01/09/19 16:25 Labs: Abnormal lab results 01/09/19 01/09/19 Range/Units 16:25 16:25 MCHC 36 H (32-34) % RDW 15.4 H (13.2-15.2) % Plt Count 467 H (140-440) K/mm3 Percent Retic 2.93 H (0.78-2.58) % BUN 7 L (9-20) mg/dL Creatinine 0.6 L (0.8-1.5) mg/dL Total Protein 8.6 H (6.3-8.2) g/dL Albumin 5.1 H (3.9-5) g/dL Assessment and Plan - Patient Problems (1) Sickle cell crisis Current Visit: No Status: Acute Plan to address problem: Supportive care. (2) Anxiety Current Visit: No Status: Chronic Plan to address problem: resume meds (3) Bipolar 1 disorder Current Visit: No Status: Chronic Plan to address problem: resume meds. (4) Seizure Current Visit: No Status: Chronic Plan to address problem: resume meds. (5) Sickle cell anemia Current Visit: No Status: Chronic Plan to address problem: Monitor, and address as needed. (6) Dehydration Current Visit: Yes Status: Acute Plan to address problem: Hydration
[2019-01-10] MEDS: oxyCODONE 5 MG TAB PO SCH ×4 (00:52→18:18)
[2019-01-10] MEDS: KETOROLAC 30 MG/1 ML INJ IV SCH ×6 (00:55→18:18)
[2019-01-10] MEDS: HYDROmorphone 1 MG/1 ML INJ IV SCH ×8 (02:13→22:33)
[2019-01-10] MEDS: diphenhydrAMINE 50 MG/ML VIAL IV SCH ×9 (02:13→22:33)
[2019-01-10] MEDS: D5W/0.2% NACL 1,000 ML IV SCH ×4 (02:14→13:36)
[2019-01-10] MEDS ORDERED: diazePAM 2 MG TAB PO PRN (05:11)
--- NOTE | 2019-01-10 07:27 | XRay Report ---
CHEST 1 VIEW 01/10/2019 6:59 AM INDICATION / CLINICAL INFORMATION: SOB. COMPARISON: 12/28/18 FINDINGS: SUPPORT DEVICES: Right Port-A-Cath is unchanged. HEART / MEDIASTINUM: No significant abnormality. LUNGS / PLEURA: No significant pulmonary or pleural abnormality. No pneumothorax. ADDITIONAL FINDINGS: No significant additional findings. IMPRESSION: 1. No acute findings. No significant change. Signer Name: Amy Mullins MD Signed: 01/10/2019 7:23 AM Workstation Name: [id number]
[2019-01-10] MEDS ORDERED: GABAPENTIN 400 MG CAP PO SCH (08:00)
[2019-01-10] MEDS: GABAPENTIN 400 MG CAP PO SCH ×2 (08:41→13:36)
[2019-01-10] MEDS: levETIRAcetam 500 MG TAB PO SCH ×3 (10:55→22:32)
[2019-01-10] MEDS: FOLIC ACID 1 MG TAB PO SCH (10:55)
[2019-01-10] MEDS: HYDROXYUREA 500 MG CAP PO SCH ×2 (10:56→10:57)
[2019-01-10] MEDS: ESCITALOPRAM 10 MG TAB PO SCH (10:56)
[2019-01-10] MEDS: APIXABAN 5 MG TAB PO SCH ×2 (10:56→22:32)
[2019-01-10] MEDS: DIVALPROEX DR 500 MG TAB PO SCH ×2 (10:56→22:31)
[2019-01-10] MEDS: POLYETHYLENE GLYCOL 3350 17 GM POWDER PO SCH (10:58)
[2019-01-10] MEDS: SODIUM CHLORIDE 23.4% 38.5 MEQ in DEXTROSE 5% IN WATER 1,000 ML IV SCH (19:06)
--- NOTE | 2019-01-10 21:32 | Progress Note ---
Assessment and Plan - Patient Problems (1) Sickle cell crisis Current Visit: No Status: Acute Plan to address problem: Supportive care. Continue as current. (2) Anxiety Current Visit: No Status: Chronic Plan to address problem: resume meds (3) Bipolar 1 disorder Current Visit: No Status: Chronic Plan to address problem: resume meds. (4) Seizure Current Visit: No Status: Chronic Plan to address problem: resume meds. (5) Sickle cell anemia Current Visit: No Status: Chronic Plan to address problem: Monitor, and address as needed. (6) Dehydration Current Visit: Yes Status: Acute Plan to address problem: Hydration Subjective Date of service: 01/10/19 Principal diagnosis: SCD/pain crisis. Interval history: Patient seen/examined, resting in bed, records reviewed, and d/w patient. Will continue to monitor. Objective - Constitutional Vitals: Vital Signs - 12hr 01/10/19 01/10/19 01/10/19 12:57 17:08 17:12 Temperature 98.2 F 97.6 F 97.8 F Pulse Rate 63 79 75 Respiratory 19 20 19 Rate Blood Pressure 114/64 134/83 141/71 O2 Sat by Pulse 96 93 98 Oximetry General appearance: Present: mild distress, well-nourished - EENT Eyes: PERRL, EOM intact ENT: hearing intact, clear oral mucosa Ears: bilateral: normal - Neck Neck: supple, normal ROM - Respiratory Respiratory effort: normal Respiratory: bilateral: CTA - Breasts Breasts: deferred - Cardiovascular Rhythm: regular Heart Sounds: Present: S1 & S2. Absent: gallop, rub Extremities: pulses intact, No edema, normal color, Full ROM - Gastrointestinal General gastrointestinal: Present: soft, non-tender, non-distended, normal bowel sounds Rectal Exam: deferred - Genitourinary Male genitourinary: deferred - Integumentary Integumentary: clear, warm, dry - Musculoskeletal Musculoskeletal: 1, strength equal bilaterally - Neurologic Neurologic: moves all extremities - Psychiatric Psychiatric: memory intact, appropriate mood/affect, intact judgment & insight - Labs CBC & Chem 7: 01/09/19 16:25 01/09/19 16:25
[2019-01-10] MEDS: ZIPRASIDONE 40 MG CAP PO SCH (22:32)
[2019-01-11] MEDS: QUEtiapine 100 MG TAB PO SCH (00:01)
[2019-01-11] MEDS: GABAPENTIN 400 MG CAP PO SCH ×4 (00:01→22:04)
[2019-01-11] MEDS: SODIUM CHLORIDE 23.4% 38.5 MEQ in DEXTROSE 5% IN WATER 1,000 ML IV SCH ×4 (00:02→23:27)
[2019-01-11] MEDS: POLYETHYLENE GLYCOL 3350 17 GM POWDER PO SCH ×3 (00:03→22:05)
[2019-01-11] MEDS: HYDROXYUREA 500 MG CAP PO SCH ×3 (00:05→22:04)
[2019-01-11] MEDS: oxyCODONE 5 MG TAB PO SCH ×4 (01:19→19:49)
[2019-01-11] MEDS: KETOROLAC 30 MG/1 ML INJ IV SCH (01:23)
[2019-01-11] MEDS: diphenhydrAMINE 50 MG/ML VIAL IV SCH (01:24)
[2019-01-11] MEDS: HYDROmorphone 1 MG/1 ML INJ IV SCH ×6 (01:24→13:44)
[2019-01-11] MEDS: diphenhydrAMINE 25 MG CAP PO SCH ×3 (04:24→11:49)
[2019-01-11] MEDS ORDERED: diphenhydrAMINE 25 MG/10 ML ORAL LIQUID PO PRN (11:40)
[2019-01-11] MEDS: FOLIC ACID 1 MG TAB PO SCH (12:11)
[2019-01-11] MEDS: DIVALPROEX DR 500 MG TAB PO SCH ×2 (12:11→22:04)
[2019-01-11] MEDS: levETIRAcetam 500 MG TAB PO SCH ×2 (12:11→22:04)
[2019-01-11] MEDS: ESCITALOPRAM 10 MG TAB PO SCH (12:12)
[2019-01-11] MEDS: APIXABAN 5 MG TAB PO SCH ×2 (12:12→22:04)
[2019-01-11] MEDS ORDERED: diazePAM 2 MG TAB PO PRN (14:43)
--- NOTE | 2019-01-11 14:52 | Progress Note ---
Assessment and Plan - Patient Problems (1) Sickle cell crisis Current Visit: No Status: Acute Plan to address problem: Supportive care. Continue as current. (2) Anxiety Current Visit: No Status: Chronic Plan to address problem: resume meds (3) Bipolar 1 disorder Current Visit: No Status: Chronic Plan to address problem: resume meds. (4) Seizure Current Visit: No Status: Chronic Plan to address problem: resume meds. (5) Sickle cell anemia Current Visit: No Status: Chronic Plan to address problem: Monitor, and address as needed. (6) Dehydration Current Visit: Yes Status: Acute Plan to address problem: Hydration (7) Insomnia disorder Current Visit: Yes Status: Acute Plan to address problem: Continue on seroquile Subjective Date of service: 01/11/19 Principal diagnosis: SCD/pain crisis. Interval history: Patient seen/examined, resting in bed, records reviewed, and d/w patient. Will continue to monitor. Patient seen/examined, resting in bed, meds ,reviewed, and adjusted down, and placed on PRN,, Will continue with current management, and work towards D/C plans. Objective - Constitutional Vitals: Vital Signs - 12hr 01/11/19 01/11/19 05:16 12:27 Temperature 98.3 F 99.7 F H Pulse Rate 96 H 95 H Respiratory 20 20 Rate Blood Pressure 113/70 139/79 O2 Sat by Pulse 86 90 Oximetry General appearance: Present: mild distress, well-nourished - EENT Eyes: PERRL, EOM intact ENT: hearing intact, clear oral mucosa Ears: bilateral: normal - Neck Neck: supple, normal ROM - Respiratory Respiratory effort: normal Respiratory: bilateral: CTA - Breasts Breasts: deferred - Cardiovascular Rhythm: regular Heart Sounds: Present: S1 & S2. Absent: gallop, rub Extremities: pulses intact, No edema, normal color, Full ROM - Gastrointestinal General gastrointestinal: Present: soft, non-tender, non-distended, normal bowel sounds Rectal Exam: deferred - Genitourinary Male genitourinary: deferred - Integumentary Integumentary: clear, warm, dry - Musculoskeletal Musculoskeletal: 1, strength equal bilaterally - Neurologic Neurologic: moves all extremities - Psychiatric Psychiatric: memory intact, appropriate mood/affect, intact judgment & insight - Labs CBC & Chem 7: 01/09/19 16:25 01/09/19 16:25
[2019-01-11] MEDS: HYDROmorphone 2 MG/1 ML INJ IV PRN ×2 (17:47→22:02)
[2019-01-11] MEDS: diphenhydrAMINE 25 MG/10 ML ORAL LIQUID PO PRN ×2 (17:47→22:03)
[2019-01-12] MEDS: QUEtiapine 100 MG TAB PO SCH (00:21)
[2019-01-12] MEDS: oxyCODONE 5 MG TAB PO SCH ×4 (00:22→17:12)
[2019-01-12] MEDS: HYDROmorphone 2 MG/1 ML INJ IV PRN ×4 (02:39→20:04)
[2019-01-12] MEDS: diphenhydrAMINE 25 MG/10 ML ORAL LIQUID PO PRN ×4 (02:40→20:04)
[2019-01-12] MEDS: SODIUM CHLORIDE 23.4% 38.5 MEQ in DEXTROSE 5% IN WATER 1,000 ML IV SCH ×3 (04:58→17:13)
[2019-01-12] MEDS: GABAPENTIN 400 MG CAP PO SCH ×3 (09:18→22:10)
[2019-01-12] MEDS: ESCITALOPRAM 10 MG TAB PO SCH (09:19)
[2019-01-12] MEDS: levETIRAcetam 500 MG TAB PO SCH ×2 (09:19→22:09)
[2019-01-12] MEDS: APIXABAN 5 MG TAB PO SCH ×2 (09:19→22:09)
[2019-01-12] MEDS: DIVALPROEX DR 500 MG TAB PO SCH ×2 (09:19→22:09)
[2019-01-12] MEDS: HYDROXYUREA 500 MG CAP PO SCH ×2 (09:19→22:09)
[2019-01-12] MEDS: FOLIC ACID 1 MG TAB PO SCH (09:20)
[2019-01-12] MEDS: POLYETHYLENE GLYCOL 3350 17 GM POWDER PO SCH ×2 (09:20→22:10)
--- NOTE | 2019-01-12 18:21 | Progress Note ---
Assessment and Plan - Patient Problems (1) Sickle cell crisis Current Visit: No Status: Inactive Plan to address problem: Supportive care. Continue as current. (2) Anxiety Current Visit: No Status: Chronic Plan to address problem: resume meds (3) Bipolar 1 disorder Current Visit: No Status: Chronic Plan to address problem: resume meds. (4) Seizure Current Visit: No Status: Chronic Plan to address problem: resume meds. (5) Sickle cell anemia Current Visit: No Status: Chronic Plan to address problem: Monitor, and address as needed. (6) Dehydration Current Visit: Yes Status: Acute Plan to address problem: Hydration (7) Insomnia disorder Current Visit: Yes Status: Acute Plan to address problem: Continue on seroquile Subjective Date of service: 01/12/19 Principal diagnosis: SCD/pain crisis. Interval history: Patient seen/examined, resting in bed, records reviewed, and d/w patient. Will continue to monitor. Patient seen/examined, resting in bed, meds ,reviewed, and adjusted down, and placed on PRN,, Will continue with current management, and work towards D/C plans. patient seen/examined, resting in bed, no new labs. He rated his pain as 7- 8/10.Will continue with pain control. Objective - Constitutional Vitals: Vital Signs - 12hr 01/12/19 01/12/19 01/12/19 09:23 11:44 12:01 Temperature 98.5 F Pulse Rate Respiratory 20 20 20 Rate Blood Pressure 129/50 O2 Sat by Pulse 91 Oximetry 01/12/19 01/12/19 01/12/19 15:22 16:42 17:12 Temperature 98.6 F Pulse Rate 86 Respiratory 20 19 20 Rate Blood Pressure 105/50 O2 Sat by Pulse 97 Oximetry General appearance: Present: mild distress, well-nourished - EENT Eyes: PERRL, EOM intact ENT: hearing intact, clear oral mucosa Ears: bilateral: normal - Neck Neck: supple, normal ROM - Respiratory Respiratory effort: normal Respiratory: bilateral: CTA - Breasts Breasts: deferred - Cardiovascular Rhythm: regular Heart Sounds: Present: S1 & S2. Absent: gallop, rub Extremities: pulses intact, No edema, normal color, Full ROM - Gastrointestinal General gastrointestinal: Present: soft, non-tender, non-distended, normal bowel sounds Rectal Exam: deferred - Genitourinary Male genitourinary: deferred - Integumentary Integumentary: clear, warm, dry - Musculoskeletal Musculoskeletal: 1, strength equal bilaterally - Neurologic Neurologic: moves all extremities - Psychiatric Psychiatric: memory intact, appropriate mood/affect, intact judgment & insight - Labs CBC & Chem 7: 01/09/19 16:25 01/09/19 16:25
[2019-01-13] MEDS: oxyCODONE 5 MG TAB PO SCH ×4 (00:48→19:37)
[2019-01-13] MEDS: SODIUM CHLORIDE 23.4% 38.5 MEQ in DEXTROSE 5% IN WATER 1,000 ML IV SCH ×3 (00:48→08:13)
[2019-01-13] MEDS: QUEtiapine 100 MG TAB PO SCH (00:55)
[2019-01-13] MEDS: HYDROmorphone 2 MG/1 ML INJ IV PRN ×5 (02:19→16:42)
[2019-01-13] MEDS: diphenhydrAMINE 25 MG/10 ML ORAL LIQUID PO PRN ×5 (02:20→16:43)
[2019-01-13] MEDS: FOLIC ACID 1 MG TAB PO SCH (10:27)
[2019-01-13] MEDS: APIXABAN 5 MG TAB PO SCH (10:27)
[2019-01-13] MEDS: ESCITALOPRAM 10 MG TAB PO SCH (10:27)
[2019-01-13] MEDS: levETIRAcetam 500 MG TAB PO SCH (10:27)
[2019-01-13] MEDS: HYDROXYUREA 500 MG CAP PO SCH (10:28)
[2019-01-13] MEDS: DIVALPROEX DR 500 MG TAB PO SCH (10:28)
[2019-01-13] MEDS: GABAPENTIN 400 MG CAP PO SCH ×2 (10:29→14:06)
[2019-01-13] MEDS: POLYETHYLENE GLYCOL 3350 17 GM POWDER PO SCH (11:22)
[2019-01-13] MEDS ORDERED: D5W/0.2% NACL 1,000 ML IV SCH (13:00)
[2019-01-13] MEDS ORDERED: NEOMY 3.5 MG/BACIT 400 UNITS/POLY B 5000 UNITS/GM OINT PACKET TP ONE (18:27)
--- NOTE | 2019-01-13 18:29 | Discharge Summary ---
Providers - Providers Date of Admission: 01/09/19 15:40 Date of discharge: 01/13/19 Attending physician: RACHEL GUPTA Primary care physician: RACHEL GUPTA Hospitalization Reason for admission: SCD/pain crisis, Dehydration. Condition: Stable Hospital course: Patient seen/examined, resting in bed, records reviewed, case d/w patient. pain at 4/10, denies any problem, at the bed side. will D/C home , now. He will follow up with me, in the office.patient had presented ,to the office, on the day of admission, with CC of diffuse joint pain, unable ,to control at home, with his oral meds. he was evaluated, and admitted to the hospital, for sxs management/control. He was hydrated, given pain control, and he tolerated his tx quite well. Disposition: TO HOME OR SELFCARE - Discharge Diagnoses (1) Sickle cell crisis Status: Resolved (2) Anxiety Status: Chronic (3) Bipolar 1 disorder Status: Chronic (4) Seizure Status: Chronic (5) Sickle cell anemia Status: Chronic (6) Dehydration Status: Resolved (7) Insomnia disorder Status: Chronic Core Measure Documentation - Palliative Care Palliative Care/ Comfort Measures: Not Applicable - Core Measures Any of the following diagnoses?: history only Exam - Constitutional Vitals: Temp Pulse Resp BP Pulse Ox 98.2 F 63 19 101/50 100 01/13/19 11:46 01/13/19 11:46 01/13/19 11:46 01/13/19 11:46 01/13/19 11:46 General appearance: Present: no acute distress, well-nourished - EENT Eyes: Present: PERRL ENT: hearing intact, clear oral mucosa - Neck Neck: Present: supple, normal ROM - Respiratory Respiratory effort: normal Respiratory: bilateral: CTA - Cardiovascular Heart Sounds: Present: S1 & S2. Absent: rub, click - Extremities Extremities: pulses symmetrical, No edema Peripheral Pulses: within normal limits - Abdominal General gastrointestinal: Present: soft, non-tender, non-distended, normal bowel sounds Male genitourinary: Present: deferred - Rectal Rectal Exam: deferred - Integumentary Integumentary: Present: clear, warm, dry - Musculoskeletal Musculoskeletal: gait normal, strength equal bilaterally - Psychiatric Psychiatric: appropriate mood/affect, intact judgment & insight - Neurologic Neurologic: CNII-XII intact, moves all extremities Plan Activity: no restrictions Diet: regular Follow up with: RACHEL GUPTA DO [Primary Care Provider] - 7 Days
[2019-01-13 19:01] VITALS: BP 110/60
== END 2019-01-13 18:50 | disposition home or self-care (01) | DRG 812 ==
LOC: UNDOADMIN 14:35 → 3A 14:35
PROVIDERS: ADMIT Internal Medicine Hematology & Oncology; ATTEND Internal Medicine Hematology & Oncology
DX: D57.00 Hb-SS disease with crisis, unspecified (principal); F41.9 Anxiety disorder, unspecified; F31.9 Bipolar disorder, unspecified; R56.9 Unspecified convulsions; E86.0 Dehydration; G47.00 Insomnia, unspecified; Z91.013 Allergy to seafood; Z91.041 Radiographic dye allergy status; Z79.82 Long term (current) use of aspirin; Z79.899 Other long term (current) drug therapy
CPT/HCPCS: 36415; 71045; 80053; 85025; 85045; G0378; A6250; J1170; J1200; J1642; J1885; J7070; J7131; Q0163

== ENCOUNTER 2019-02-18 20:20 | Inpatient (IN) | payer MEDICARE ==
[2019-02-18] MEDS ORDERED: SODIUM CHLORIDE 0.9% 1000 ML 1,000 ML IV ONE ×2 (20:28→23:13)
--- NOTE | 2019-02-18 20:33 | Event Note ---
ED Screening Note Date of service: 02/18/19 Time: 20:27 ED Screening Note: 33 y o male with sickle cell presents with generalized pain This initial assessment/diagnostic orders/clinical plan/treatment(s) is/are subject to change based on patients health status, clinical progression and re-assessment by fellow clinical providers in the ED. Further treatment and workup at subsequent clinical providers discretion. Patient/guardian urged not to elope from the ED as their condition may be serious if not clinically assessed and managed. Initial orders include: labs, main side eval
[2019-02-18] MEDS ORDERED: diphenhydrAMINE 50 MG/ML VIAL IV ONE (21:03)
[2019-02-18] MEDS ORDERED: HYDROmorphone 2 MG/1 ML INJ IV ONE ×2 (21:03→22:25)
--- NOTE | 2019-02-18 21:28 | Emergency Department Report ---
HPI - General Chief Complaint: Sickle Cell Crisis Time Seen by Provider: 02/18/19 21:01 - HPI HPI: 33-year-old [place] male presents to the emergency department with a complaint of a 3-4 day history of generalized body aches, especially in the hips, legs and chest. He denies any shortness of breath, fever. Patient has a history of sickle cell disease, chronic chest pains, previous DVT on intermittent anticoagulation, and a right-sided chest port. He has been taking his folic acid and hydroxyurea, as well as some home opiate pain medication, without much relief. His windows laptop technician is Dr. Reeves. He has a history of previous DVT in his right leg but complains of some recent pain to the left upper thigh. No swelling of the leg. He is on Eliquis but says he has only intermittently compliant with this anticoagulation. ED Past Medical Hx - Past Medical History Hx Congestive Heart Failure: No Hx Diabetes: No Hx Sickle Cell Disease: Yes Hx Headaches / Migraines: Yes Hx Seizures: Yes Hx Psychiatric Treatment: Yes (panic attackes, depression, bipolar) Hx Asthma: No Hx COPD: No Additional medical history: chronic chest pain, PALPITATIONS - Surgical History Additional Surgical History: SPLEENECTOMY, RIGHT SIDE PORT, BIOPSY - Social History Smoking Status: Current Some Day Smoker Substance Use Type: Alcohol - Medications Home Medications: Home Medications Medication Instructions Recorded Confirmed Last Taken Type Aspirin [Aspirin TAB] 325 mg PO QDAY 07/02/16 01/10/19 01/09/19 History Diphenhydramine HCl 50 mg PO 4XD 07/02/16 01/10/19 01/09/19 History Divalproex [Jennifer ANDRE] 500 mg PO BID 07/02/16 01/10/19 01/09/19 History Folic Acid 1 mg PO DAILY 07/02/16 01/10/19 01/09/19 History Gabapentin 1,200 mg PO TID 07/02/16 01/10/19 01/09/19 History HYDROmorphone 2 mg PO 4XD 07/02/16 01/10/19 01/09/19 History Hydroxyurea [Hydrea] 1,000 mg PO BID 07/02/16 01/10/19 01/09/19 History Keppra TAB 1,000 mg PO BID 07/02/16 01/10/19 01/09/19 History Quetiapine Fumarate [Seroquel] 150 mg PO HS 07/02/16 01/10/19 01/09/19 History clonazePAM [Klonopin] 2 mg PO DAILY PRN 07/02/16 01/10/19 01/09/19 History Melatonin 3 tab PO QDAY 07/16/16 01/10/19 01/09/19 History Doxycycline Hyclate [Doxycycline 100 mg PO BID #10 tab 12/26/17 01/10/19 01/09/19 Rx Hyclate TAB] ED Review of Systems ROS: Stated complaint: SICKLE CELL CRISIS PAIN Other details as noted in HPI Comment: All other systems reviewed and negative Constitutional: denies: chills, fever Eyes: denies: eye pain, vision change ENT: denies: ear pain, throat pain Respiratory: denies: cough, shortness of breath Cardiovascular: chest pain. denies: palpitations Gastrointestinal: denies: abdominal pain, vomiting Genitourinary: denies: dysuria, discharge Musculoskeletal: arthralgia, myalgia. denies: joint swelling Skin: denies: rash, lesions Neurological: denies: headache, weakness Physical Exam - Physical Exam Vital Signs: Vital Signs 02/18/19 20:23 Temperature 99.0 F Pulse Rate 68 Respiratory 18 Rate Blood Pressure 117/65 O2 Sat by Pulse 100 Oximetry Physical Exam: GENERAL: The patient is well-developed well-nourished. HENT: Normocephalic. Atraumatic. Patient has moist mucous membranes. EYES: Extraocular motions are intact. NECK: Supple. Trachea is midline. CHEST/LUNGS: Clear to auscultation. There is no respiratory distress noted. HEART/CARDIOVASCULAR: Regular. There is no tachycardia. There is no murmur. ABDOMEN: Abdomen is soft, nontender. Patient has normal bowel sounds. There is no abdominal distention. SKIN: Skin is warm and dry. NEURO: The patient is awake, alert, and oriented. The patient is cooperative. The patient has no focal neurologic deficits. Normal speech. MUSCULOSKELETAL there is some reproducible tenderness palpation to the left proximal thigh but no obvious deformity. There is no limitation range of motion. There is no evidence of acute injury. BACK: No midline thoracic or lumbar tenderness to palpation, step-off or deformity. ED Course Vital Signs 02/18/19 20:23 Temperature 99.0 F Pulse Rate 68 Respiratory 18 Rate Blood Pressure 117/65 O2 Sat by Pulse 100 Oximetry ED Medical Decision Making - Lab Data Result diagrams: 02/18/19 21:28 02/18/19 21:28 - Medical Decision Making This patient presents initially with the complaint of a sickle cell pain crisis with some generalized pain but also complained of some pain over the last week to the left upper thigh. The patient has a history of a right lower extremity DVT and admits to only intermittent compliance with his anticoagulation. Patient's labs are mostly unremarkable. Hemoglobin is greater than 12. Reticulocyte count of 3. D-dimer level is negative. Patient was given a few doses of pain medication and was given IV fluid resuscitation. At one point I was called into the room as the patient's significant other says that he was having a seizure. The patient did have some seizure-like activity but he quickly stopped having the convulsive movements when he was told that he would have Ativan as he says "that causes palpitations and I don't want." He did not have any visible postictal state. This may have been indicative of a pseudoseizure but given the patient's history of a seizure disorder on Keppra the patient was loaded with a gram of Keppra. His vital signs are stable throughout his ED course. However, despite the pain medication given, the patient was sitting, crying, rocking on his bed, complaining of generalized pain. I spoke with the patient's primary care physician, Dr. Reeves, who has agreed to admit this patient to his service. The PCP asked for the patient received some IV fluid resuscitation and pain medication. He asked to give Dilaudid 2 mg every 3 hours when necessary and Benadryl 12.5 mg every 3 hours when necessary. - Differential Diagnosis sickle cell pain crisis, chest crisis, fibromyalgia, epilepsy, pseudoseizur Critical Care Time: No Critical care attestation.: If time is entered above; I have spent that time in minutes in the direct care of this critically ill patient, excluding procedure time. ED Disposition Clinical Impression: Sickle cell pain crisis Sickle cell anemia with coexistent alpha-thalassemia Qualifiers: Sickle-cell associated disorders: with unspecified crisis Qualified Code(s): D57.419 - Sickle-cell thalassemia with crisis, unspecified Sickle cell anemia Qualifiers: Sickle-cell associated disorders: with unspecified crisis Qualified Code(s): D57.00 - Hb-SS disease with crisis, unspecified; D57.0 - Hb-SS disease with cr linwood Disposition: DC-09 OP ADMIT IP TO THIS HOSP Is pt being admited?: Yes Condition: Fair Time of Disposition: 02:42
[2019-02-18 21:58] LABS: BUN/Creatinine Ratio 11; Blood Urea Nitrogen 8 mg/dL (9-20); Calcium 9.5 mg/dL (8.4-10.2); Hemolysis Index 11
[2019-02-18 22:00] LABS: Basophils # (Auto) 0.1 K/mm3 (0.0-0.1); Basophils % (Auto) 0.7 % (0.0-1.8); Eosinophils # (Auto) 0.4 K/mm3 (0.0-0.4); Eosinophils % (Auto) 3.9 % (0.0-4.3); Hematocrit 36.5 % (35.5-45.6); Hemoglobin 12.7 gm/dl (11.8-15.2); Lymphocytes % (Auto) 35.9 % (13.4-35.0); Mean Corpuscular HGB Conc 35 % (32-34); Mean Corpuscular Volume 88 fl (84-94); Monocytes # (Auto) 0.7 K/mm3 (0.0-0.8); Monocytes % (Auto) 6.3 % (0.0-7.3); Platelet Count 380 K/mm3 (140-440); Red Blood Count 4.15 M/mm3 (3.65-5.03)
--- NOTE | 2019-02-18 22:50 | XRay Report ---
CHEST 1 VIEW 02/18/2019 9:58 PM INDICATION / CLINICAL INFORMATION: Chest pain. Sickle cell crisis since Saturday. COMPARISON: One view of the chest from 01/10/2019. FINDINGS: SUPPORT DEVICES: Stable right internal jugular vein Port-A-Cath. HEART / MEDIASTINUM: No significant abnormality. LUNGS / PLEURA: No significant pulmonary or pleural abnormality. No pneumothorax. ADDITIONAL FINDINGS: No significant additional findings. IMPRESSION: 1. No acute abnormality of the chest. Signer Name: Joni Loaiza MD Signed: 02/18/2019 10:45 PM Workstation Name: [id number]
[2019-02-18] MEDS ORDERED: LORazepam 2 MG/ML VIAL ONE (23:13)
[2019-02-18] MEDS ORDERED: levETIRAcetam 1000 MG/NS 0.75% 1,000 MG/100 ML BAG IV ONE (23:13)
[2019-02-18] MEDS ORDERED: APIXABAN 5 MG TAB PO ONE (23:45)
[2019-02-19] MEDS ORDERED: SODIUM CHLORIDE 0.9% 1000 ML 1,000 ML IV ONE (00:01)
--- NOTE | 2019-02-19 01:28 | Vascular Lab Report ---
DUPLEX DOPPLER LOWER EXTREMITY VEINS, LEFT INDICATION: Left leg pain. History of DVT. TECHNIQUE: Duplex doppler imaging was performed through the veins of the left lower extremity using venous compr ession and other maneuvers. COMPARISON: No relevant prior imaging study available. FINDINGS: Common Femoral vein: Negative. Superficial Femoral vein: Negative. Popliteal vein: Negative. Calf veins: Negative. Additional findings: Along the left groin at the site of the patient's pain is a well-defined ovoid h yperechoic nodule located within the superficial soft tissues measuring 2.1 x 0.8 x 1.7 cm with minim al internal color flow. IMPRESSION: 1. No sonographic evidence for DVT in the left lower extremity. 2. Possible left groin lipoma at the site of the patient's reported pain. Signer Name: Joni Loaiza MD Signed: 02/19/2019 1:24 AM Workstation Name: [id number]
[2019-02-19] MEDS ORDERED: diphenhydrAMINE 50 MG/ML VIAL ONE (01:39)
[2019-02-19] MEDS ORDERED: HYDROmorphone 2 MG/1 ML INJ ONE (01:39)
[2019-02-19] MEDS ORDERED: SODIUM CHLORIDE 0.9% 1000 ML 1,000 ML ONE (01:41)
[2019-02-19] MEDS ORDERED: APIXABAN 5 MG TAB ONE (01:42)
[2019-02-19] MEDS: HYDROmorphone 2 MG/1 ML INJ IV PRN ×6 (01:55→23:47)
[2019-02-19] MEDS: diphenhydrAMINE 50 MG/ML VIAL IV PRN ×5 (01:55→20:42)
[2019-02-19] MEDS: D5W/0.2% NACL 1,000 ML IV SCH ×4 (12:48→23:52)
--- NOTE | 2019-02-19 17:57 | History and Physical Report ---
History of Present Illness Date of examination: 02/19/19 Date of admission: 02/19/19 11:21 Chief complaint: SCD/Pain crisis. History of present illness: Patient presented, to the ER, with CC of generalized weakness, and pain, especially in the right thigh. He was admitted ,for sxs control, and management. He has he of DVT, and stated , that he had not been compliant , with his eliquis.He was given a dose last night in the ER. US of the Ext ,to be done. Past History Past Medical History: anemia, seizures Social history: no significant social history, , lives with family Family history: no significant family history Medications and Allergies Allergies Allergy/AdvReac Type Severity Reaction Status Date / Time duloxetine [From Cymbalta] Allergy Shortness Verified 12/28/18 10:58 of Breath fentanyl Allergy Anaphylaxis Verified 12/28/18 10:58 influenza virus vaccine ts Allergy Hives Verified 12/28/18 10:58 [id number] (36 mos,up) [From Fluarix] iodine Allergy Anaphylaxis Verified 12/28/18 10:58 NSAIDS (Non-Steroidal AdvReac Seizure Verified 01/10/19 11:08 Anti-Inflamma IV contrast Allergy Seizure Uncoded 08/28/17 12:56 seafood AdvReac Swelling Uncoded 08/28/17 12:56 Home Medications Medication Instructions Recorded Confirmed Last Taken Type Diphenhydramine HCl 50 mg PO 4XD 07/02/16 01/10/19 01/09/19 History Divalproex [Jennifer ANDRE] 500 mg PO BID 07/02/16 02/19/19 01/09/19 History Gabapentin 1,200 mg PO TID 07/02/16 01/10/19 01/09/19 History Hydroxyurea [Hydrea] 1,000 mg PO BID 07/02/16 02/19/19 01/09/19 History Keppra TAB 1,000 mg PO BID 07/02/16 02/19/19 01/09/19 History Apixaban [Eliquis] 02/19/19 Unknown History Escitalopram Oxalate [Lexapro] 2 mg PO QDAY 02/19/19 02/19/19 Unknown History Oxycodone HCl [roxiCODONE] 30 mg PO 02/19/19 Unknown History QUEtiapine [SEROquel] 100 mg PO BID 02/19/19 02/19/19 Unknown History oxyCODONE /ACETAMINOPHEN [Percocet 2 tab PO Q6HR PRN 02/19/19 02/19/19 Unknown History 5/325] Active Meds: Active Medications Diphenhydramine HCl (Benadryl) 12.5 mg IV Q3H PRN PRN Reason: Itching Last Admin: 02/19/19 17:34 Dose: 12.5 mg Documented by: Hydromorphone HCl (Dilaudid) 2 mg IV Q3H PRN PRN Reason: Pain , Severe (7-10) Last Admin: 02/19/19 17:35 Dose: 2 mg Documented by: Dextrose/Sodium Chloride (D5ns 0.2%) 1,000 mls @ 250 mls/hr IV DIRECT CYNDI Last Admin: 02/19/19 16:49 Dose: 250 mls/hr Documented by: Review of Systems Constitutional: chronic pain Musculoskeletal: low back pain Exam - Constitutional Vitals: Temp Pulse Resp BP Pulse Ox 98.3 F 60 18 104/50 81 L 02/19/19 12:49 02/19/19 12:49 02/19/19 12:49 02/19/19 12:49 02/19/19 03:23 General appearance: Present: mild distress, well-nourished - EENT Eyes: Present: PERRL ENT: hearing intact, clear oral mucosa - Neck Neck: Present: supple, normal ROM - Respiratory Respiratory effort: normal Respiratory: bilateral: CTA - Cardiovascular Heart Sounds: Present: S1 & S2. Absent: rub, click - Extremities Extremities: pulses symmetrical, No edema Peripheral Pulses: within normal limits - Abdominal General gastrointestinal: Present: soft, non-tender, non-distended, normal bowel sounds Male genitourinary: Present: deferred - Rectal Rectal Exam: deferred - Integumentary Integumentary: Present: clear, warm, dry - Musculoskeletal Musculoskeletal: gait normal, strength equal bilaterally - Psychiatric Psychiatric: appropriate mood/affect, intact judgment & insight - Neurologic Neurologic: CNII-XII intact, moves all extremities Results - Labs CBC & Chem 7: 02/18/19 21:28 02/18/19 21:28 Labs: Abnormal lab results 02/18/19 02/18/19 Range/Units 21:28 21:28 WBC 11.3 H (4.5-11.0) K/mm3 MCHC 35 H (32-34) % RDW 16.0 H (13.2-15.2) % Lymph % (Auto) 35.9 H (13.4-35.0) % Percent Retic 3.37 H (0.78-2.58) % BUN 8 L (9-20) mg/dL Creatinine 0.7 L (0.8-1.5) mg/dL Assessment and Plan - Patient Problems (1) Sickle cell pain crisis Current Visit: Yes Status: Acute Plan to address problem: pain control. (2) Sickle cell anemia Current Visit: Yes Status: Chronic Qualifiers: Sickle-cell associated disorders: with unspecified crisis Qualified Cod e(s): D57.00 - Hb-SS disease with crisis, unspecified; D57.0 - Hb-SS disease with crisis Plan to address problem: monitor labs. (3) Bipolar 1 disorder Current Visit: No Status: Chronic Plan to address problem: Psych meds. (4) Insomnia disorder Current Visit: No Status: Chronic Plan to address problem: sleeping aid.
[2019-02-19] MEDS ORDERED: oxyCODONE /ACETAMINOPHEN 5-325MG TAB PO PRN (18:00)
[2019-02-19] MEDS: APIXABAN 5 MG TAB PO SCH (21:00)
[2019-02-19] MEDS: DIVALPROEX DR 500 MG TAB PO SCH (21:00)
[2019-02-19] MEDS: levETIRAcetam 500 MG TAB PO SCH (21:00)
[2019-02-19] MEDS: QUEtiapine 100 MG TAB PO SCH (21:01)
[2019-02-19] MEDS ORDERED: KEPPRA 1000 MG PO SCH (22:00)
[2019-02-19] MEDS: HYDROXYUREA 500 MG CAP PO SCH (22:25)
[2019-02-20] MEDS: HYDROmorphone 2 MG/1 ML INJ IV PRN ×7 (03:11→22:35)
[2019-02-20] MEDS: diphenhydrAMINE 50 MG/ML VIAL IV PRN ×6 (03:14→19:34)
[2019-02-20] MEDS: D5W/0.2% NACL 1,000 ML IV SCH ×5 (05:40→21:11)
[2019-02-20] MEDS: ESCITALOPRAM 10 MG TAB PO SCH (09:35)
[2019-02-20] MEDS: DIVALPROEX DR 500 MG TAB PO SCH ×2 (09:35→21:07)
[2019-02-20] MEDS: QUEtiapine 100 MG TAB PO SCH ×2 (09:35→21:07)
[2019-02-20] MEDS: APIXABAN 5 MG TAB PO SCH ×2 (09:35→21:07)
[2019-02-20] MEDS: levETIRAcetam 500 MG TAB PO SCH ×2 (09:35→21:07)
[2019-02-20] MEDS: HYDROXYUREA 500 MG CAP PO SCH ×2 (09:36→21:07)
[2019-02-20] MEDS ORDERED: ESCITALOPRAM OXALATE PO SCH (10:00)
--- NOTE | 2019-02-20 21:37 | Discharge Summary ---
Providers - Providers Date of Admission: 02/19/19 11:21 Date of discharge: 02/21/19 Attending physician: RACHEL GUPTA Primary care physician: RACHEL GUPTA Hospitalization Reason for admission: Sickle pain crisis. Condition: Fair Hospital course: patient presented to the ER with CC of diffuse joint pain, he was admitted, for sxs management, control. he was treated with hydration, pain control, and oxygen.he is seen today, and rated his pain 6/10.but itching a lot.will adjust his benadryl, and will d/c home tomorrow afternoon when ride available. Disposition: DC-01 TO HOME OR SELFCARE - Discharge Diagnoses (1) Sickle cell pain crisis Status: Acute (2) Sickle cell anemia Status: Chronic Qualifiers: Sickle-cell associated disorders: with unspecified crisis Qualified Code(s): D57.00 - Hb-SS disease with crisis, unspecified; D57.0 - Hb-SS disease with crisis (3) Bipolar 1 disorder Status: Chronic (4) Insomnia disorder Status: Chronic Core Measure Documentation - Palliative Care Palliative Care/ Comfort Measures: Not Applicable - Core Measures Any of the following diagnoses?: history only Exam - Constitutional Vitals: Temp Pulse Resp BP Pulse Ox 98.0 F 72 18 109/53 95 02/20/19 17:42 02/20/19 20:59 02/20/19 20:59 02/20/19 17:42 02/20/19 17:42 General appearance: Present: mild distress, well-nourished - EENT Eyes: Present: PERRL ENT: hearing intact, clear oral mucosa - Neck Neck: Present: supple, normal ROM - Respiratory Respiratory effort: normal Respiratory: bilateral: CTA - Cardiovascular Heart Sounds: Present: S1 & S2. Absent: rub, click - Extremities Extremities: pulses symmetrical, No edema Peripheral Pulses: within normal limits - Abdominal General gastrointestinal: Present: soft, non-tender, non-distended, normal bowel sounds Male genitourinary: Present: deferred - Rectal Rectal Exam: deferred - Integumentary Integumentary: Present: clear, warm, dry - Musculoskeletal Musculoskeletal: gait normal, strength equal bilaterally - Psychiatric Psychiatric: appropriate mood/affect, intact judgment & insight - Neurologic Neurologic: CNII-XII intact, moves all extremities Plan Activity: no restrictions Diet: regular Follow up with: ONYEGBULA,RACHEL C, DO [Primary Care Provider] - 3-5 Days
[2019-02-20] MEDS ORDERED: diphenhydrAMINE 50 MG/ML VIAL IV ONE (22:00)
[2019-02-21] MEDS: HYDROmorphone 2 MG/1 ML INJ IV PRN ×2 (02:02→05:47)
[2019-02-21] MEDS: D5W/0.2% NACL 1,000 ML IV SCH ×2 (02:33→05:50)
[2019-02-21 05:25] VITALS: BP 120/70
[2019-02-21] MEDS: diphenhydrAMINE 50 MG/ML VIAL IV PRN (05:48)
[2019-02-21] MEDS ORDERED: NEOMY 3.5 MG/BACIT 400 UNITS/POLY B 5000 UNITS/GM OINT PACKET TP ONE (08:07)
[2019-02-21] MEDS: HYDROXYUREA 500 MG CAP PO SCH (09:57)
[2019-02-21] MEDS: DIVALPROEX DR 500 MG TAB PO SCH (09:57)
[2019-02-21] MEDS: APIXABAN 5 MG TAB PO SCH (09:57)
[2019-02-21] MEDS: QUEtiapine 100 MG TAB PO SCH (09:58)
[2019-02-21] MEDS: levETIRAcetam 500 MG TAB PO SCH (09:58)
[2019-02-21] MEDS: ESCITALOPRAM 10 MG TAB PO SCH (09:58)
== END 2019-02-21 08:30 | disposition home or self-care (01) | DRG 812 ==
LOC: ED 20:20 → 3A 02-19 00:01 → OBSVTOIN 02-19 11:21
PROVIDERS: ADMIT Internal Medicine Hematology & Oncology; ATTEND Internal Medicine Hematology & Oncology
DX: D57.00 Hb-SS disease with crisis, unspecified (principal); F31.9 Bipolar disorder, unspecified; G89.29 Other chronic pain; G47.00 Insomnia, unspecified; G43.909 Migraine, unspecified, not intractable, without status migrainosus; F17.200 Nicotine dependence, unspecified, uncomplicated; Z90.81 Acquired absence of spleen; Z72.89 Other problems related to lifestyle; Z79.82 Long term (current) use of aspirin; Z79.899 Other long term (current) drug therapy
CPT/HCPCS: 36415; 71045; 80048; 84484; 85025; 85045; 85379; 99406; G0378; A6250; J1170; J1200; J1642; J1953; J2060; J7030

== ENCOUNTER 2019-03-04 17:18 | Inpatient (IN) | payer MEDICARE ==
[2019-03-04] MEDS ORDERED: SODIUM CHLORIDE 0.9% 500 ML 500 ML IV ONE (17:28)
[2019-03-04 18:08] LABS: Basophils # (Auto) 0.2 K/mm3 (0.0-0.1); Eosinophils # (Auto) 0.2 K/mm3 (0.0-0.4); Eosinophils % (Auto) 1.1 % (0.0-4.3); Hemoglobin 12.9 gm/dl (11.8-15.2); Lymphocytes # (Auto) 1.1 K/mm3 (1.2-5.4); Lymphocytes % (Auto) 6.4 % (13.4-35.0); Mean Corpuscular HGB Conc 35 % (32-34); Mean Corpuscular Volume 88 fl (84-94); Monocytes # (Auto) 2.5 K/mm3 (0.0-0.8); Monocytes % (Auto) 14.6 % (0.0-7.3); Platelet Count 432 K/mm3 (140-440); Red Blood Count 4.21 M/mm3 (3.65-5.03); Red Cell Distribution Width 15.3 % (13.2-15.2)
--- NOTE | 2019-03-04 18:12 | XRay Report ---
CHEST 1 VIEW INDICATION / CLINICAL INFORMATION: COUGH, YELLOW SPUTUM,possible Sepsis. COMPARISON: 02/18/2019 FINDINGS: SUPPORT DEVICES: Right CVL in the superior vena cava. :HEART / MEDIASTINUM: Stable. LUNGS / PLEURA: No significant pulmonary or pleural abnormality. No pneumothorax. ADDITIONAL FINDINGS: No significant additional findings. IMPRESSION: 1. No acute findings. Signer Name: Hal Zimmerman MD Signed: 03/04/2019 6:07 PM Workstation Name: [id number]
[2019-03-04] MEDS ORDERED: ACETAMINOPHEN 325 MG TAB ONE ×2 (18:15→23:05)
[2019-03-04 18:23] LABS: Alanine Aminotransferase 21 units/L (7-56); Albumin 4.9 g/dL (3.9-5); BUN/Creatinine Ratio 7; Blood Urea Nitrogen 8 mg/dL (9-20); Calcium 9.7 mg/dL (8.4-10.2); Hemolysis Index 11
[2019-03-04 18:57] LABS: INR 1.22 (0.87-1.13)
[2019-03-04] MEDS ORDERED: SODIUM CHLORIDE 0.9% 1000 ML 1,000 ML IV ONE ×2 (20:07→22:00)
[2019-03-04] MEDS ORDERED: HYDROmorphone 1 MG/1 ML INJ IV ONE ×2 (20:07→21:59)
--- NOTE | 2019-03-04 20:11 | Emergency Department Report ---
HPI - General Chief Complaint: Sickle Cell Crisis Time Seen by Provider: 03/04/19 20:01 - HPI HPI: Mr. Pedro Myers is a 33-year-old -[place] male who is known to me from a previous visit earlier this month. He presents today with a 2 day history of generalized body pain, a productive cough and subjective fever. He does present here with a fever 103F. He has a history of sickle cell anemia, migraine headaches, panic attacks, bipolar disorder, seizures. The patient is on Depakote, gabapentin and Keppra for his seizures and says he has been compliant. He is also on Elaquis and says he is compliant with this as well. He denies taking anything for his symptoms prior to arrival. His primary care physician/dress fitter is Dr. Reeves. No recent travel or sick contacts at home. ED Past Medical Hx - Past Medical History Previous Medical History?: Yes Hx Congestive Heart Failure: No Hx Diabetes: No Hx Sickle Cell Disease: Yes Hx Headaches / Migraines: Yes Hx Seizures: Yes Hx Psychiatric Treatment: Yes (panic attackes, depression, bipolar) Hx Asthma: No Hx COPD: No Additional medical history: chronic chest pain, PALPITATIONS - Surgical History Past Surgical History?: Yes Additional Surgical History: SPLEENECTOMY, RIGHT SIDE PORT, BIOPSY (lungs and neck) - Social History Smoking Status: Current Every Day Smoker Substance Use Type: Alcohol - Medications Home Medications: Home Medications Medication Instructions Recorded Confirmed Last Taken Type Diphenhydramine HCl 50 mg PO 4XD 07/02/16 03/04/19 03/04/19 History Divalproex [DepJuventino ANDRE] 500 mg PO BID 07/02/16 03/04/19 01/09/19 History Gabapentin 1,200 mg PO TID 07/02/16 03/04/19 03/04/19 History Hydroxyurea [Hydrea] 1,000 mg PO BID 07/02/16 03/04/19 03/04/19 History Keppra TAB 1,000 mg PO BID 07/02/16 03/04/19 03/03/19 History Apixaban [Eliquis] 5 mg PO DAILY 02/19/19 03/04/19 03/04/19 History Escitalopram Oxalate [Lexapro] 20 mg PO QDAY 02/19/19 03/04/19 03/03/19 History Oxycodone HCl [roxiCODONE] 30 mg PO Q8H 02/19/19 03/04/19 03/03/19 History QUEtiapine [SEROquel] 100 mg PO BID 02/19/19 03/04/19 03/03/19 History oxyCODONE /ACETAMINOPHEN [Percocet 2 tab PO Q6HR PRN 02/19/19 03/04/19 03/03/19 History 5/325] ED Review of Systems ROS: Stated complaint: SICKLE CELL CRISIS Other details as noted in HPI Comment: All other systems reviewed and negative Constitutional: chills, fever Eyes: denies: eye pain, vision change ENT: denies: ear pain, throat pain Respiratory: cough, wheezing Cardiovascular: chest pain. denies: palpitations Gastrointestinal: denies: abdominal pain, vomiting Genitourinary: denies: dysuria, discharge Musculoskeletal: back pain, myalgia. denies: joint swelling Skin: denies: rash, lesions Neurological: denies: weakness, numbness Physical Exam - Physical Exam Vital Signs: Vital Signs 03/04/19 03/04/19 03/04/19 17:23 17:26 19:45 Temperature 103 F H 103.0 F H 103.0 F H Pulse Rate 143 H 143 H 128 H Respiratory 22 22 20 Rate Blood Pressure 110/54 102/40 Blood Pressure 110/54 [Right] O2 Sat by Pulse 95 95 100 Oximetry Physical Exam: GENERAL: The patient is well-developed well-nourished. HEENT: Normocephalic. Atraumatic. Patient has moist mucous membranes. EYES: Extraocular motions are intact. Pupils equal and reactive to light bilaterally. NECK: Supple. Trachea is midline CHEST/LUNGS: Clear to auscultation. There is no respiratory distress noted. HEART/CARDIOVASCULAR: Regular. There is mild to moderate tachycardia. ABDOMEN: Abdomen is soft, nontender. Patient has normal bowel sounds. There is no abdominal distention. SKIN: Skin is hot but dry. NEURO: The patient is awake, alert, and oriented. The patient is cooperative. The patient has no focal neurologic deficits. Normal speech. MUSCULOSKELETAL: There is no obvious deformity. There is no limitation range of motion. There is no evidence of acute injury. ED Course Vital Signs 03/04/19 03/04/19 03/04/19 17:23 17:26 19:45 Temperature 103 F H 103.0 F H 103.0 F H Pulse Rate 143 H 143 H 128 H Respiratory 22 22 20 Rate Blood Pressure 110/54 102/40 Blood Pressure 110/54 [Right] O2 Sat by Pulse 95 95 100 Oximetry ED Medical Decision Making - Lab Data Result diagrams: 03/04/19 17:39 03/04/19 17:39 - EKG Data -: EKG Interpreted by Me EKG shows normal: sinus rhythm, axis, intervals, QRS complexes, ST-T waves Rate: tachycardia (117 bpm) - EKG Data When compared to previous EKG there are: previous EKG unavailable Interpretation: other (Sinus tach at 117 bpm. No STEMI) - Radiology Data Radiology results: image reviewed interpreted by me: Chest x-ray does not show any pneumonia, pneumothorax, focal consolidation, pleural effusions, or any other acute process. - Medical Decision Making This patient presents to the emergency department with a complaint of generalized body pain including chest pain that he believes is secondary to a sickle cell pain crisis, as well as a mixed dry and productive cough. He also presents with fever with MAXIMUM TEMPERATURE 103F. Patient initially has a heart rate of about 140. The heart rate did come down with some IV fluid and pain control. Chest x-ray does not show any pneumonia, pleural effusions or any other acute process. This does not appear consistent with a sickle cell chest crisis. Negative for influenza. Patient has a leukocytosis of 17,000. Reticulocyte count is 3.5. I am waiting for a urine specimen for a urinalysis to look for a urinary tract infection, but otherwise I have not found any focus of infection. Patient was treated empirically with some Rocephin. I spoke to his primary care physician who asked for the patient to be admitted to the hospitalist service as he is currently out of town. The patient was accepted for admission by the hospitalist, Dr. Pimentel. - Differential Diagnosis Sepsis, SIRS, Influenza, Chest crisis, Pneumonia Critical Care Time: No Critical care attestation.: If time is entered above; I have spent that time in minutes in the direct care of this critically ill patient, excluding procedure time. ED Disposition Clinical Impression: Sickle cell pain crisis, SIRS (systemic inflammatory response syndrome) Sickle cell anemia Qualifiers: Sickle-cell associated disorders: with unspecified crisis Qualified Code(s): D57.00 - Hb-SS disease with crisis, unspecified; D57.0 - Hb-SS disease with crisis Fever Qualifiers: Fever type: unspecified Qualified Code(s): R50.9 - Fever, unspecified Disposition: DC-09 OP ADMIT IP TO THIS HOSP Is pt being admited?: Yes Condition: Fair Time of Disposition: 21:47
[2019-03-04] MEDS ORDERED: diphenhydrAMINE 50 MG/ML VIAL IV ONE (20:47)
[2019-03-04] MEDS ORDERED: diphenhydrAMINE 50 MG/ML VIAL ONE (20:48)
[2019-03-04] MEDS: cefTRIAXone/NS 1 GM/50 ML 1 GM/50 ML BAG IV ONE ×2 (22:05→23:05)
[2019-03-04] MEDS ORDERED: ACETAMINOPHEN 325 MG TAB PO ONE (22:13)
[2019-03-04] MEDS ORDERED: MAGNESIUM HYDROXIDE (MOM) ORAL LIQD UDC PO PRN ×2 (22:40)
[2019-03-04] MEDS ORDERED: ONDANSETRON 4 MG/2 ML INJ IV PRN ×2 (22:40)
--- NOTE | 2019-03-04 22:53 | History and Physical Report ---
History of Present Illness Date of examination: 03/04/19 Date of admission: 03/04/19 21:47 Chief complaint: Generalized body aches and pain Cough and fever for 1 day History of present illness: 33-year-old -[place] Islander male with known history of sickle cell disease presenting to the emergency room today complaining of generalized body aches and pain. He has also had some cough which is nonproductive. He denies any sick contacts and no recent travel. She has significant history of seizure disorder and bipolar disorder and he has been compliant with his medications. 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 Upon arrival in the emergency room is found to have a fever of about 103 F, he had an elevated white count of about 17. His chest x-ray was however within normal limits. Influenza a and B were also negative. Past History Past Medical History: other (Bipolar disorder, anxiety, sickle cell disease) Past Surgical History: Other (Splenectomy, right chest port placement) Social history: smoking (Patient smokes 1 or 2 cigarettes daily), alcohol abuse (He drinks alcohol occasionally) Family history: other (Mother has rheumatoid arthritis) Medications and Allergies Allergies Allergy/AdvReac Type Severity Reaction Status Date / Time duloxetine [From Cymbalta] Allergy Shortness Verified 03/04/19 17:21 of Breath fentanyl Allergy Anaphylaxis Verified 03/04/19 17:21 influenza virus vaccine ts Allergy Hives Verified 03/04/19 17:21 [id number] (36 mos,up) [From Fluarix] iodine Allergy Anaphylaxis Verified 03/04/19 17:21 NSAIDS (Non-Steroidal AdvReac Seizure Verified 03/04/19 17:21 Anti-Inflamma IV contrast Allergy Seizure Uncoded 03/04/19 17:21 seafood AdvReac Swelling Uncoded 03/04/19 17:21 Home Medications Medication Instructions Recorded Confirmed Last Taken Type Diphenhydramine HCl 50 mg PO 4XD 07/02/16 03/04/19 03/04/19 History Divalproex [Jennifer ANDRE] 500 mg PO BID 07/02/16 03/04/19 01/09/19 History Gabapentin 1,200 mg PO TID 07/02/16 03/04/19 03/04/19 History Hydroxyurea [Hydrea] 1,000 mg PO BID 07/02/16 03/04/19 03/04/19 History Keppra TAB 1,000 mg PO BID 07/02/16 03/04/19 03/03/19 History Apixaban [Eliquis] 5 mg PO DAILY 02/19/19 03/04/19 03/04/19 History Escitalopram Oxalate [Lexapro] 20 mg PO QDAY 02/19/19 03/04/19 03/03/19 History Oxycodone HCl [roxiCODONE] 30 mg PO Q8H 02/19/19 03/04/19 03/03/19 History QUEtiapine [SEROquel] 100 mg PO BID 02/19/19 03/04/19 03/03/19 History oxyCODONE /ACETAMINOPHEN [Percocet 2 tab PO Q6HR PRN 02/19/19 03/04/19 03/03/19 History 5/325] Active Meds: Active Medications Acetaminophen (Tylenol) 650 mg PO Q4H PRN PRN Reason: Pain MILD(1-3)/Fever >100.5/GAO Bisacodyl (Dulcolax) 10 mg [place] QDAY PRN PRN Reason: Constipation unrelieved by MOM Folic Acid (Folvite) 1 mg PO QDAY CYNDI Sodium Chloride (Nacl 0.9% 1000 Ml) 1,000 mls @ 999 mls/hr IV BOLUS ONE Stop: 03/04/19 23:00 Last Admin: 03/04/19 22:06 Dose: 999 mls/hr Documented by: Sodium Chloride (Nacl 0.9% 1000 Ml) 1,000 mls @ 150 mls/hr IV DIRECT CYNDI Magnesium Hydroxide (Milk Of Magnesia) 30 ml PO Q4H PRN PRN Reason: Constipation Magnesium Hydroxide (Milk Of Magnesia) 30 ml PO Q4H PRN PRN Reason: Constipation Morphine Sulfate (Morphine) 2 mg IV Q4H PRN PRN Reason: Pain, Moderate (4-6) Morphine Sulfate (Morphine) 4 mg IV Q2H PRN PRN Reason: Pain , Severe (7-10) Stop: 03/05/19 22:39 Multivitamins (Theragran Tab) 1 each PO QDAY CYNDI Ondansetron HCl (Zofran) 4 mg IV Q8H PRN PRN Reason: Nausea And Vomiting Ondansetron HCl (Zofran) 4 mg IV Q8H PRN PRN Reason: Nausea And Vomiting Senna (Senokot) 17.2 mg PO QHS CYNDI Sodium Chloride (Sodium Chloride Flush Syringe 10 Ml) 10 ml IV BID CYNDI Sodium Chloride (Sodium Chloride Flush Syringe 10 Ml) 10 ml IV PRN PRN PRN Reason: LINE FLUSH Review of Systems Constitutional: fever Respiratory: cough with sputum Musculoskeletal: other (Generalized body aches and pain) Exam - Constitutional Vitals: Temp Pulse Resp BP Pulse Ox 103.0 F H 128 H 20 102/40 100 03/04/19 19:45 03/04/19 19:45 03/04/19 19:45 03/04/19 19:45 03/04/19 19:45 General appearance: Present: no acute distress, well-nourished - EENT Eyes: Present: PERRL, EOM intact ENT: hearing intact, clear oral mucosa, dentition normal - Neck Neck: Present: supple, normal ROM - Respiratory Respiratory effort: normal Respiratory: bilateral: CTA - Cardiovascular Rhythm: regular Heart Sounds: Present: S1 & S2 - Extremities Extremities: no ischemia, pulses intact, pulses symmetrical, No edema, Full ROM Peripheral Pulses: within normal limits - Abdominal General gastrointestinal: Present: soft, non-tender, non-distended, normal bowel sounds - Integumentary Integumentary: Present: clear, warm, dry - Musculoskeletal Musculoskeletal: strength equal bilaterally - Psychiatric Psychiatric: appropriate mood/affect, intact judgment & insight, cooperative - Neurologic Neurologic: CNII-XII intact, moves all extremities Results - Labs CBC & Chem 7: 03/04/19 17:39 03/04/19 17:39 Labs: Abnormal lab results 03/04/19 03/04/19 03/04/19 Range/Units 17:39 17:39 17:39 WBC 17.0 H (4.5-11.0) K/mm3 MCHC 35 H (32-34) % RDW 15.3 H (13.2-15.2) % Lymph % (Auto) 6.4 L (13.4-35.0) % [place] % (Auto) 14.6 H (0.0-7.3) % Lymph # 1.1 L (1.2-5.4) K/mm3 [place] # 2.5 H (0.0-0.8) K/mm3 Baso # 0.2 H (0.0-0.1) K/mm3 Seg Neutrophils % 76.9 H (40.0-70.0) % Seg Neutrophils # 13.1 H (1.8-7.7) K/mm3 Percent Retic (0.78-2.58) % PT 15.6 H (12.2-14.9) Sec. INR 1.22 H (0.87-1.13) Sodium 135 L (137-145) mmol/L Chloride 97.1 L (98-107) mmol/L BUN 8 L (9-20) mg/dL Glucose 106 H (75-100) mg/dL Lactic Acid (0.7-2.0) mmol/L Total Bilirubin 1.80 H (0.1-1.2) mg/dL Total Protein 8.6 H (6.3-8.2) g/dL 03/04/19 03/04/19 Range/Units 17:39 20:44 WBC (4.5-11.0) K/mm3 MCHC (32-34) % RDW (13.2-15.2) % Lymph % (Auto) (13.4-35.0) % [place] % (Auto) (0.0-7.3) % Lymph # (1.2-5.4) K/mm3 [place] # (0.0-0.8) K/mm3 Baso # (0.0-0.1) K/mm3 Seg Neutrophils % (40.0-70.0) % Seg Neutrophils # (1.8-7.7) K/mm3 Percent Retic 3.93 H (0.78-2.58) % PT (12.2-14.9) Sec. INR (0.87-1.13) Sodium (137-145) mmol/L Chloride (98-107) mmol/L BUN (9-20) mg/dL Glucose (75-100) mg/dL Lactic Acid 2.10 H* (0.7-2.0) mmol/L Total Bilirubin (0.1-1.2) mg/dL Total Protein (6.3-8.2) g/dL Assessment and Plan - Patient Problems (1) Sickle cell pain crisis Current Visit: Yes Status: Acute Plan to address problem: Patient has been placed on IV fluid and analgesic medication. Also continue routine home medications. Will monitor CBC including reticulocyte count Is also placed on empiric IV antibiotics in view of the elevated white count and the fever. (2) Bipolar 1 disorder Current Visit: No Status: Chronic Plan to address problem: We will continue routine home medications. (3) DVT prophylaxis Current Visit: No Status: Acute Plan to address problem: Patient currently on anticoagulation. (4) Full code status Current Visit: Yes Status: Acute
[2019-03-05] MEDS: SODIUM CHLORIDE 0.9% 1000 ML 1,000 ML IV SCH ×4 (00:12→20:12)
[2019-03-05] MEDS ORDERED: IBUPROFEN 600 MG TAB PO ONE (00:33)
[2019-03-05] MEDS: diphenhydrAMINE 50 MG/ML VIAL IV PRN ×4 (00:55→19:46)
[2019-03-05] MEDS: MORPHINE 4 MG/1 ML INJ IV PRN ×2 (00:55→06:12)
[2019-03-05] MEDS: ACETAMINOPHEN 325 MG TAB PO PRN ×2 (03:52→09:32)
[2019-03-05] MEDS ORDERED: oxyCODONE /ACETAMINOPHEN 5-325MG TAB PO PRN (05:18)
[2019-03-05] MEDS ORDERED: OXYCODONE HCL 30 MG PO SCH (05:30)
[2019-03-05] MEDS ORDERED: HEPARIN 5,000 UNIT/1 ML VIAL SUB-Q SCH (06:00)
[2019-03-05] MEDS: oxyCODONE 5 MG TAB PO SCH ×3 (07:35→23:46)
[2019-03-05] MEDS ORDERED: GABAPENTIN 1200 MG PO SCH (08:00)
[2019-03-05 08:10] LABS: Hematocrit 34.8 % (35.5-45.6); Hemoglobin 12.3 gm/dl (11.8-15.2); Mean Corpuscular HGB Conc 36 % (32-34); Mean Corpuscular Volume 88 fl (84-94); Platelet Count 374 K/mm3 (140-440); Red Blood Count 3.97 M/mm3 (3.65-5.03); Red Cell Distribution Width 15.2 % (13.2-15.2)
[2019-03-05 08:20] LABS: INR 1.27 (0.87-1.13); Partial Thromboplastin Time 34.9 Sec. (24.2-36.6)
[2019-03-05 08:28] LABS: BUN/Creatinine Ratio 9; Blood Urea Nitrogen 9 mg/dL (9-20); Calcium 8.6 mg/dL (8.4-10.2); Hemolysis Index 5
[2019-03-05] MEDS: GABAPENTIN 400 MG CAP PO SCH ×3 (09:21→20:54)
[2019-03-05] MEDS: ESCITALOPRAM 10 MG TAB PO SCH (09:23)
[2019-03-05] MEDS: DIVALPROEX DR 500 MG TAB PO SCH ×2 (09:23→22:45)
[2019-03-05] MEDS: levETIRAcetam 500 MG TAB PO SCH ×2 (09:23→22:48)
[2019-03-05] MEDS: APIXABAN 5 MG TAB PO SCH ×2 (09:24→22:48)
[2019-03-05] MEDS: FOLIC ACID 1 MG TAB PO SCH (09:24)
[2019-03-05] MEDS: QUEtiapine 100 MG TAB PO SCH ×2 (09:24→22:47)
[2019-03-05] MEDS: MULTIVITAMINS ,THERAPEUTIC TAB PO SCH (09:24)
[2019-03-05] MEDS: HYDROXYUREA 500 MG CAP PO SCH ×2 (09:24→22:49)
[2019-03-05] MEDS: cefTRIAXone/NS 1 GM/50 ML 1 GM/50 ML BAG IV SCH (09:25)
[2019-03-05] MEDS ORDERED: KEPPRA 1000 MG PO SCH (10:00)
[2019-03-05] MEDS ORDERED: NON-FORMULARY EACH (Escitalopram Oxalate [Lexapro] 20 MG) PO SCH (10:00)
[2019-03-05] MEDS ORDERED: APIXABAN 5 MG TAB PO SCH (10:00)
[2019-03-05 10:17] LABS: Total Cells Counted 100
[2019-03-05 10:18] LABS: Band Neutrophils # (Manual) 0.4 K/mm3; Basophils % (Manual) 0 % (0.0-1.8); Eosinophils % (Manual) 0 % (0.0-4.3)
[2019-03-05 10:20] LABS: Hgb C Crystals Few; Target Cells 2+
[2019-03-05 10:21] LABS: Giant Platelets Few; Large Platelets Few; Platelet Estimate Cons
[2019-03-05] MEDS: MORPHINE 2 MG/1 ML INJ IV PRN ×2 (11:21→18:45)
--- NOTE | 2019-03-05 16:18 | Progress Note ---
Assessment and Plan (1) Sickle cell pain crisis Current Visit: Yes Status: Acute Plan to address problem: Patient has been placed on IV fluid and analgesic medication. Also continue routine home medications. Will monitor CBC including reticulocyte count Is also placed on empiric IV antibiotics in view of the elevated white count and the fever. (2) Bipolar 1 disorder Current Visit: No Status: Chronic Plan to address problem: We will continue routine home medications. (3) DVT prophylaxis Current Visit: No Status: Acute Plan to address problem: Patient currently on anticoagulation. (4) Full code status Current Visit: Yes Status: Acute Subjective Date of service: 03/05/19 Principal diagnosis: Sickle cell crisis Interval history: 33-year-old -[place] male with known history of sickle cell disease presenting to the emergency room today complaining of generalized body aches and pain. He has also had some cough which is nonproductive. He denies any sick contacts and no recent travel. She has significant history of seizure disorder and bipolar disorder and he has been compliant with his medications. 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 Upon arrival in the emergency room is found to have a fever of about 103 F, he had an elevated white count of about 17. His chest x-ray was however within normal limits. Influenza a and B were also negative. Pain continues Objective - Constitutional Vitals: Vital Signs - 12hr 03/05/19 03/05/19 03/05/19 04:25 04:58 07:57 Temperature 103.5 F H Pulse Rate 97 H Respiratory 18 Rate Blood Pressure 120/51 O2 Sat by Pulse 95 96 Oximetry 03/05/19 03/05/19 03/05/19 09:32 09:33 10:15 Temperature 101 F H Pulse Rate 88 Respiratory 18 18 Rate Blood Pressure 109/57 O2 Sat by Pulse 100 Oximetry 03/05/19 03/05/19 03/05/19 10:50 11:00 12:17 Temperature 98.5 F Pulse Rate 98 H 91 H Respiratory 18 18 Rate Blood Pressure 110/54 O2 Sat by Pulse 98 96 Oximetry General appearance: Present: no acute distress, well-nourished - EENT Eyes: PERRL, EOM intact ENT: hearing intact, clear oral mucosa Ears: bilateral: normal - Neck Neck: supple, normal ROM - Respiratory Respiratory effort: normal Respiratory: bilateral: CTA - Breasts Breasts: normal - Cardiovascular Heart rate: 78 Rhythm: regular Heart Sounds: Present: S1 & S2. Absent: gallop, rub Extremities: no ischemia, pulses intact, No edema, normal color, Full ROM - Gastrointestinal General gastrointestinal: Present: soft, non-tender, non-distended, normal bowel sounds - Genitourinary Male genitourinary: normal - Integumentary Integumentary: clear, warm, dry - Musculoskeletal Musculoskeletal: 1, strength equal bilaterally - Neurologic Neurologic: moves all extremities - Psychiatric Psychiatric: memory intact, appropriate mood/affect, intact judgment & insight - Labs CBC & Chem 7: 03/05/19 07:44 03/05/19 07:44 Labs: Abnormal lab results 03/04/19 03/04/19 03/04/19 Range/Units 17:39 17:39 17:39 WBC 17.0 H (4.5-11.0) K/mm3 Hct (35.5-45.6) % MCHC 35 H (32-34) % RDW 15.3 H (13.2-15.2) % Lymph % (Auto) 6.4 L (13.4-35.0) % [place] % (Auto) 14.6 H (0.0-7.3) % Lymph # 1.1 L (1.2-5.4) K/mm3 [place] # 2.5 H (0.0-0.8) K/mm3 Baso # 0.2 H (0.0-0.1) K/mm3 Seg Neutrophils % 76.9 H (40.0-70.0) % Monocytes % (Manual) (0.0-7.3) % Nucleated RBC % (0.0-0.9) % Seg Neutrophils # 13.1 H (1.8-7.7) K/mm3 Monocytes # (Manual) (0.0-0.8) K/mm3 Percent Retic (0.78-2.58) % PT 15.6 H (12.2-14.9) Sec. INR 1.22 H (0.87-1.13) Sodium 135 L (137-145) mmol/L Potassium (3.6-5.0) mmol/L Chloride 97.1 L (98-107) mmol/L BUN 8 L (9-20) mg/dL Glucose 106 H (75-100) mg/dL Lactic Acid (0.7-2.0) mmol/L Total Bilirubin 1.80 H (0.1-1.2) mg/dL Lactate Dehydrogenase (91-180) units/L Total Protein 8.6 H (6.3-8.2) g/dL 03/04/19 03/04/19 03/05/19 Range/Units 17:39 20:44 07:44 WBC (4.5-11.0) K/mm3 Hct 34.8 L (35.5-45.6) % MCHC 36 H (32-34) % RDW (13.2-15.2) % Lymph % (Auto) (13.4-35.0) % [place] % (Auto) (0.0-7.3) % Lymph # (1.2-5.4) K/mm3 [place] # (0.0-0.8) K/mm3 Baso # (0.0-0.1) K/mm3 Seg Neutrophils % (40.0-70.0) % Monocytes % (Manual) 17.0 H (0.0-7.3) % Nucleated RBC % 6.0 H (0.0-0.9) % Seg Neutrophils # (1.8-7.7) K/mm3 Monocytes # (Manual) 1.7 H (0.0-0.8) K/mm3 Percent Retic 3.93 H 3.27 H (0.78-2.58) % PT (12.2-14.9) Sec. INR (0.87-1.13) Sodium (137-145) mmol/L Potassium (3.6-5.0) mmol/L Chloride (98-107) mmol/L BUN (9-20) mg/dL Glucose (75-100) mg/dL Lactic Acid 2.10 H* (0.7-2.0) mmol/L Total Bilirubin (0.1-1.2) mg/dL Lactate Dehydrogenase (91-180) units/L Total Protein (6.3-8.2) g/dL 03/05/19 03/05/19 Range/Units 07:44 07:44 WBC (4.5-11.0) K/mm3 Hct (35.5-45.6) % MCHC (32-34) % RDW (13.2-15.2) % Lymph % (Auto) (13.4-35.0) % [place] % (Auto) (0.0-7.3) % Lymph # (1.2-5.4) K/mm3 [place] # (0.0-0.8) K/mm3 Baso # (0.0-0.1) K/mm3 Seg Neutrophils % (40.0-70.0) % Monocytes % (Manual) (0.0-7.3) % Nucleated RBC % (0.0-0.9) % Seg Neutrophils # (1.8-7.7) K/mm3 Monocytes # (Manual) (0.0-0.8) K/mm3 Percent Retic (0.78-2.58) % PT 16.1 H (12.2-14.9) Sec. INR 1.27 H (0.87-1.13) Sodium (137-145) mmol/L Potassium 3.5 L (3.6-5.0) mmol/L Chloride (98-107) mmol/L BUN (9-20) mg/dL Glucose (75-100) mg/dL Lactic Acid (0.7-2.0) mmol/L Total Bilirubin (0.1-1.2) mg/dL Lactate Dehydrogenase 310 H (91-180) units/L Total Protein (6.3-8.2) g/dL
[2019-03-05] MEDS: SENNOSIDES 8.6 MG TAB PO SCH (22:47)
[2019-03-06] MEDS: diphenhydrAMINE 50 MG/ML VIAL IV PRN ×4 (02:37→18:44)
[2019-03-06] MEDS: SODIUM CHLORIDE 0.9% 1000 ML 1,000 ML IV SCH ×4 (02:40→23:51)
[2019-03-06] MEDS: oxyCODONE 5 MG TAB PO SCH ×3 (06:40→21:41)
[2019-03-06 06:47] LABS: Hematocrit 31.2 % (35.5-45.6); Mean Corpuscular HGB Conc 35 % (32-34); Mean Corpuscular Volume 88 fl (84-94); Platelet Count 312 K/mm3 (140-440); Red Blood Count 3.54 M/mm3 (3.65-5.03); Red Cell Distribution Width 15.7 % (13.2-15.2)
[2019-03-06] MEDS: MORPHINE 2 MG/1 ML INJ IV PRN ×3 (06:47→14:53)
[2019-03-06 07:18] LABS: Alanine Aminotransferase 22 units/L (7-56); BUN/Creatinine Ratio 11; Blood Urea Nitrogen 9 mg/dL (9-20); Calcium 8.6 mg/dL (8.4-10.2); Hemolysis Index 16
[2019-03-06] MEDS: GABAPENTIN 400 MG CAP PO SCH ×3 (08:56→20:22)
[2019-03-06 09:15] LABS: Anisocytosis 1+; Basophils % (Manual) 0 % (0.0-1.8); Eosinophils % (Manual) 0 % (0.0-4.3); Howell-Jolly Bodies Rare; Macrocytosis 1+; Sickle Cells 1+; Total Cells Counted 100
[2019-03-06 09:16] LABS: Platelet Estimate Consistent w Auto; Target Cells 1+
[2019-03-06] MEDS: cefTRIAXone/NS 1 GM/50 ML 1 GM/50 ML BAG IV SCH (10:30)
[2019-03-06] MEDS: DIVALPROEX DR 500 MG TAB PO SCH ×2 (10:30→21:40)
[2019-03-06] MEDS: QUEtiapine 100 MG TAB PO SCH ×2 (10:30→21:41)
[2019-03-06] MEDS: APIXABAN 5 MG TAB PO SCH ×2 (10:30→21:41)
[2019-03-06] MEDS: ESCITALOPRAM 10 MG TAB PO SCH (10:30)
[2019-03-06] MEDS: FOLIC ACID 1 MG TAB PO SCH (10:31)
[2019-03-06] MEDS: HYDROXYUREA 500 MG CAP PO SCH ×2 (10:31→21:40)
[2019-03-06] MEDS: levETIRAcetam 500 MG TAB PO SCH ×2 (10:31→21:41)
[2019-03-06] MEDS: MULTIVITAMINS ,THERAPEUTIC TAB PO SCH (10:32)
[2019-03-06] MEDS: ACETAMINOPHEN 325 MG TAB PO PRN (14:59)
[2019-03-06] MEDS: HYDROmorphone 2 MG/1 ML INJ IV PRN (18:44)
[2019-03-06] MEDS: SENNOSIDES 8.6 MG TAB PO SCH (21:41)
[2019-03-06] MEDS: NICOTINE 14 MG/24 HR PATCH TD SCH (23:48)
[2019-03-07] MEDS: HYDROmorphone 2 MG/1 ML INJ IV PRN ×6 (00:43→23:16)
[2019-03-07] MEDS: diphenhydrAMINE 50 MG/ML VIAL IV PRN ×6 (00:44→23:16)
[2019-03-07] MEDS: SODIUM CHLORIDE 0.9% 1000 ML 1,000 ML IV SCH ×3 (05:03→21:29)
[2019-03-07] MEDS: oxyCODONE 5 MG TAB PO SCH ×3 (06:59→23:14)
[2019-03-07] MEDS: cefTRIAXone/NS 1 GM/50 ML 1 GM/50 ML BAG IV SCH (09:38)
[2019-03-07] MEDS: HYDROXYUREA 500 MG CAP PO SCH ×2 (09:39→21:39)
[2019-03-07] MEDS: levETIRAcetam 500 MG TAB PO SCH ×2 (09:39→21:29)
[2019-03-07] MEDS: ESCITALOPRAM 10 MG TAB PO SCH (09:39)
[2019-03-07] MEDS: APIXABAN 5 MG TAB PO SCH ×2 (09:39→21:30)
[2019-03-07] MEDS: GABAPENTIN 400 MG CAP PO SCH ×3 (09:39→21:29)
[2019-03-07] MEDS: MULTIVITAMINS ,THERAPEUTIC TAB PO SCH (09:39)
[2019-03-07] MEDS: QUEtiapine 100 MG TAB PO SCH ×2 (09:39→21:29)
[2019-03-07] MEDS: NICOTINE 14 MG/24 HR PATCH TD SCH (09:40)
[2019-03-07] MEDS: DIVALPROEX DR 500 MG TAB PO SCH ×2 (09:40→21:29)
[2019-03-07] MEDS: FOLIC ACID 1 MG TAB PO SCH (09:40)
--- NOTE | 2019-03-07 15:27 | Progress Note ---
Assessment and Plan (1) Sickle cell pain crisis Current Visit: Yes Status: Acute Plan to address problem: Patient has been placed on IV fluid and analgesic medication. Also continue routine home medications. Will monitor CBC including reticulocyte count Is also placed on empiric IV antibiotics in view of the elevated white count and the fever. Increased his pain meds (2) Bipolar 1 disorder Current Visit: No Status: Chronic Plan to address problem: We will continue routine home medications. (3) DVT prophylaxis Current Visit: No Status: Acute Plan to address problem: Patient currently on anticoagulation. (4) Full code status Current Visit: Yes Status: Acute Dr Marshall patient Can be transferred to his service on Saturday Subjective Date of service: 03/07/19 Principal diagnosis: Sickle cell crisis Interval history: 33-year-old -[place] male with known history of sickle cell disease presenting to the emergency room today complaining of generalized body aches and pain. He has also had some cough which is nonproductive. He denies any sick contacts and no recent travel. She has significant history of seizure disorder and bipolar disorder and he has been compliant with his medications. 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 Upon arrival in the emergency room is found to have a fever of about 103 F, he had an elevated white count of about 17. His chest x-ray was however within normal limits. Influenza a and B were also negative. Pain continues Objective - Constitutional Vitals: Vital Signs - 12hr 03/07/19 03/07/19 03/07/19 04:29 05:02 05:32 Temperature 98.1 F Pulse Rate 78 Respiratory 18 18 18 Rate Blood Pressure 116/66 O2 Sat by Pulse 98 Oximetry 03/07/19 03/07/19 03/07/19 06:59 08:38 10:00 Temperature 99.0 F Pulse Rate 88 98 H Respiratory 18 18 Rate Blood Pressure 124/70 O2 Sat by Pulse 94 99 Oximetry General appearance: Present: no acute distress, well-nourished - EENT Eyes: PERRL, EOM intact ENT: hearing intact, clear oral mucosa Ears: bilateral: normal - Neck Neck: supple, normal ROM - Respiratory Respiratory effort: normal Respiratory: bilateral: CTA - Breasts Breasts: normal - Cardiovascular Heart rate: 78 Rhythm: regular Heart Sounds: Present: S1 & S2. Absent: gallop, rub Extremities: pulses intact, No edema, normal color, Full ROM - Gastrointestinal General gastrointestinal: Present: soft, non-tender, non-distended, normal bowel sounds - Genitourinary Male genitourinary: normal - Integumentary Integumentary: clear, warm, dry - Musculoskeletal Musculoskeletal: 1, strength equal bilaterally - Neurologic Neurologic: moves all extremities - Psychiatric Psychiatric: memory intact, appropriate mood/affect, intact judgment & insight - Labs CBC & Chem 7: 03/06/19 06:02 03/06/19 06:02 Labs: Abnormal lab results 03/07/19 Range/Units 08:40 Lactate Dehydrogenase 305 H (91-180) units/L
[2019-03-07] MEDS: SENNOSIDES 8.6 MG TAB PO SCH (21:30)
[2019-03-08] MEDS: SODIUM CHLORIDE 0.9% 1000 ML 1,000 ML IV SCH ×2 (03:29→10:51)
[2019-03-08] MEDS: HYDROmorphone 2 MG/1 ML INJ IV PRN ×2 (03:33→09:06)
[2019-03-08] MEDS: diphenhydrAMINE 50 MG/ML VIAL IV PRN ×2 (03:33→09:07)
[2019-03-08] MEDS: oxyCODONE 5 MG TAB PO SCH ×2 (06:49→14:21)
[2019-03-08] MEDS: ESCITALOPRAM 10 MG TAB PO SCH (10:49)
[2019-03-08] MEDS: APIXABAN 5 MG TAB PO SCH (10:49)
[2019-03-08] MEDS: DIVALPROEX DR 500 MG TAB PO SCH (10:49)
[2019-03-08] MEDS: HYDROXYUREA 500 MG CAP PO SCH (10:49)
[2019-03-08] MEDS: QUEtiapine 100 MG TAB PO SCH (10:50)
[2019-03-08] MEDS: FOLIC ACID 1 MG TAB PO SCH (10:50)
[2019-03-08] MEDS: levETIRAcetam 500 MG TAB PO SCH (10:50)
[2019-03-08] MEDS: NICOTINE 14 MG/24 HR PATCH TD SCH (10:50)
[2019-03-08] MEDS: cefTRIAXone/NS 1 GM/50 ML 1 GM/50 ML BAG IV SCH (10:50)
[2019-03-08] MEDS: MULTIVITAMINS ,THERAPEUTIC TAB PO SCH (10:50)
[2019-03-08] MEDS: GABAPENTIN 400 MG CAP PO SCH ×2 (10:53→14:26)
[2019-03-08 12:43] LABS: Basophils # (Auto) 0.1 K/mm3 (0.0-0.1); Basophils % (Auto) 1.2 % (0.0-1.8); Eosinophils # (Auto) 0.3 K/mm3 (0.0-0.4); Eosinophils % (Auto) 3.6 % (0.0-4.3); Hemoglobin 10.5 gm/dl (11.8-15.2); Lymphocytes # (Auto) 3.5 K/mm3 (1.2-5.4); Lymphocytes % (Auto) 42.6 % (13.4-35.0); Mean Corpuscular HGB Conc 34 % (32-34); Mean Corpuscular Volume 89 fl (84-94); Monocytes # (Auto) 0.6 K/mm3 (0.0-0.8); Monocytes % (Auto) 6.9 % (0.0-7.3); Platelet Count 383 K/mm3 (140-440); Red Cell Distribution Width 16.3 % (13.2-15.2)
[2019-03-08 13:17] LABS: Alanine Aminotransferase 15 units/L (7-56); Albumin 3.7 g/dL (3.9-5); BUN/Creatinine Ratio 8; Blood Urea Nitrogen 5 mg/dL (9-20); Calcium 8.5 mg/dL (8.4-10.2); Hemolysis Index 48
--- NOTE | 2019-03-08 13:37 | Discharge Summary ---
Providers - Providers Date of Admission: 03/05/19 10:16 Date of discharge: 03/08/19 Attending physician: DAVION HAYES Hospitalization Reason for admission: Sickle cell crisis Condition: Fair Pertinent studies: CXR Hospital course: 33-year-old -[place] male with known history of sickle cell disease presenting to the emergency room today complaining of generalized body aches and pain. He has also had some cough which is nonproductive. He denies any sick contacts and no recent travel.He has significant history of seizure disorder and bipolar disorder and he has been compliant with his medications. 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 Admitted and managed appropriately.Symptoms resolved. Today patient feels better,Stable at diacentervillerge. Discharge Diagnosis: --Sickle cell pain crisis Patient has been placed on IV fluid and analgesic medication. Also continue routine home medications. Will monitor CBC including reticulocyte count Is also placed on empiric IV antibiotics in view of the elevated white count and the fever. Increased his pain meds. --Tobacco use: Smoking cessation -- Bipolar 1 disorder continue routine psych medications. Stable at discharge Disposition: DC-01 TO HOME OR SELFCARE Time spent for discharge: 32 min Core Measure Documentation - Palliative Care Palliative Care/ Comfort Measures: Not Applicable - Core Measures Any of the following diagnoses?: none Exam - Constitutional Vitals: Temp Pulse Resp BP Pulse Ox 98.1 F 80 18 99/61 92 03/08/19 04:05 03/08/19 12:00 03/08/19 06:49 03/08/19 04:05 03/08/19 08:51 General appearance: Present: no acute distress, well-nourished - EENT Eyes: Present: PERRL, EOM intact - Neck Neck: Present: supple, normal ROM - Respiratory Respiratory effort: normal Respiratory: bilateral: diminished, negative: rales, rhonchi, wheezing - Cardiovascular Rhythm: regular Heart Sounds: Present: S1 & S2 - Extremities Extremities: no ischemia, No edema - Abdominal General gastrointestinal: Present: soft, non-tender, non-distended, normal bowel sounds - Integumentary Integumentary: Present: clear, warm - Musculoskeletal Musculoskeletal: strength equal bilaterally - Psychiatric Psychiatric: appropriate mood/affect, cooperative - Neurologic Neurologic: CNII-XII intact, moves all extremities Plan Activity: advance as tolerated Diet: regular Additional Instructions: Advised to see orthopedic surgeon for further evaluation of your hip pain Follow up with: PRIMARY CARE, [Referring] - 3-5 Days RACHEL GUPTA DO [Staff Physician] - 7 Days PRANAY JACINTO MD [Staff Physician] - 7 Days Forms: Discharge Signature Page Prescriptions: cefUROXime [Ceftin] 2 tab PO Q12H #20 tablet Folic Acid [Folvite] 1 mg PO QDAY #30 tablet
[2019-03-08 16:13] VITALS: BP 113/66
== END 2019-03-08 14:05 | disposition home or self-care (01) | DRG 812 ==
LOC: ED 17:18 → 3A 21:47 → 4A 22:24 → OBSVTOIN 03-05 10:16
PROVIDERS: ADMIT Internal Medicine Geriatric Medicine; ATTEND Internal Medicine
DX: D57.00 Hb-SS disease with crisis, unspecified (principal); R65.10 Systemic inflammatory response syndrome (SIRS) of non-infectious origin without acute organ dysfunction; R50.9 Fever, unspecified; F31.9 Bipolar disorder, unspecified; G40.909 Epilepsy, unspecified, not intractable, without status epilepticus; F41.9 Anxiety disorder, unspecified; G43.909 Migraine, unspecified, not intractable, without status migrainosus; F17.210 Nicotine dependence, cigarettes, uncomplicated; F10.10 Alcohol abuse, uncomplicated; Z90.81 Acquired absence of spleen; Z82.61 Family history of arthritis; Z91.041 Radiographic dye allergy status; Z91.013 Allergy to seafood; Z79.899 Other long term (current) drug therapy
CPT/HCPCS: 36415; 71045; 80048; 80053; 82140; 82805; 83615; 84484; 85007; 85025; 85045; 85610; 85730; 87040; 87086; 87400; 93005; 93010; 94760; 96361; 96365; 96366; 96375; 96376; 99406; G0378; J0696; J1170; J1200; J2270; J7030

== ENCOUNTER 2019-05-15 10:02 | Emergency (ER) | payer MEDICARE ==
[2019-05-15 10:48] LABS: Basophils # (Auto) 0.1 K/mm3 (0.0-0.1); Basophils % (Auto) 1.3 % (0.0-1.8); Eosinophils # (Auto) 0.3 K/mm3 (0.0-0.4); Eosinophils % (Auto) 3.8 % (0.0-4.3); Hematocrit 39.3 % (35.5-45.6); Hemoglobin 13.7 gm/dl (11.8-15.2); Lymphocytes # (Auto) 2.8 K/mm3 (1.2-5.4); Lymphocytes % (Auto) 30.8 % (13.4-35.0); Mean Corpuscular HGB Conc 35 % (32-34); Mean Corpuscular Volume 84 fl (84-94); Monocytes # (Auto) 0.8 K/mm3 (0.0-0.8); Monocytes % (Auto) 8.2 % (0.0-7.3); Red Blood Count 4.65 M/mm3 (3.65-5.03); Red Cell Distribution Width 15.6 % (13.2-15.2)
[2019-05-15 10:57] LABS: INR 1.08 (0.87-1.13); Partial Thromboplastin Time 29.2 Sec. (24.2-36.6)
[2019-05-15 10:58] LABS: Platelet Count 391 K/mm3 (140-440)
[2019-05-15 11:04] LABS: Alanine Aminotransferase 14 units/L (7-56); Albumin 4.8 g/dL (3.9-5); BUN/Creatinine Ratio 6; Blood Urea Nitrogen 5 mg/dL (9-20); Calcium 9.4 mg/dL (8.4-10.2); Hemolysis Index 2
[2019-05-15] MEDS ORDERED: ONDANSETRON 4 MG/2 ML INJ IV ONE ×2 (11:18→13:10)
[2019-05-15] MEDS ORDERED: SODIUM CHLORIDE 0.9% 1000 ML 1,000 ML IV ONE (11:18)
[2019-05-15] MEDS ORDERED: diphenhydrAMINE 50 MG/ML VIAL IV ONE ×3 (11:18→13:57)
[2019-05-15] MEDS ORDERED: HYDROmorphone 1 MG/1 ML INJ IV ONE (11:18)
[2019-05-15] MEDS ORDERED: HYDROmorphone 2 MG/1 ML INJ IV ONE ×2 (11:22→13:10)
--- NOTE | 2019-05-15 11:22 | Emergency Department Report ---
ED General Adult HPI - General Chief complaint: Sickle Cell Crisis Stated complaint: SICKLE CELL Time Seen by Provider: 05/15/19 10:34 Source: patient Mode of arrival: Ambulatory Limitations: No Limitations - History of Present Illness Initial comments: 33-year-old -[place]ian male with a current history of sickle cell crisis presents to the emergency room for generalized sickle cell pain since Saturday and has gotten worse. Patient states he is not getting any relief from his current regiment. Patient reports that his pain is in his hips, back, joints, right chest. Patient reports his pain is greater than a 10. Patient reports he usually gets infusions of D5 saline with Benadryl 2 bags every other week. Patient reports he is compliant on his pain medication. Patient did not report any seizure activity. Review of patient's chart shows that he has had a history of DVTs. Her last admission was February 19, 2019. Patient reports his normal regiment is Dilaudid 2 mg every 3 hours. Patient has multiple allergies to fentanyl NSAIDs seafood IV contrast Cymbalta. Onset/Timin -: days(s) Location: chest (right ), back, left, right, lower extremity (hips) Severity scale (0 -10): 10 Quality: aching, sharp Consistency: constant Improves with: none Worsens with: none Associated Symptoms: denies: cough, fever/chills, nausea/vomiting, shortness of breath, syncope, weakness - Related Data Home Medications Medication Instructions Recorded Confirmed Last Taken Diphenhydramine HCl 50 mg PO 4XD 07/02/16 03/04/19 03/04/19 Divalproex [Christophe Maldonado] 500 mg PO BID 07/02/16 03/04/19 01/09/19 Gabapentin 1,200 mg PO TID 07/02/16 03/04/19 03/04/19 Hydroxyurea [Hydrea] 1,000 mg PO BID 07/02/16 03/04/19 03/04/19 Keppra TAB 1,000 mg PO BID 07/02/16 03/04/19 03/03/19 Apixaban [Eliquis] 5 mg PO DAILY 02/19/19 03/04/19 03/04/19 Escitalopram Oxalate [Lexapro] 20 mg PO QDAY 02/19/19 03/04/19 03/03/19 Oxycodone HCl [roxiCODONE] 30 mg PO Q8H 02/19/19 03/04/19 03/03/19 QUEtiapine [SEROquel] 100 mg PO BID 02/19/19 03/04/19 03/03/19 oxyCODONE /ACETAMINOPHEN [Percocet 2 tab PO Q6HR PRN 02/19/19 03/04/19 03/03/19 5/325 mg] Previous Rx's Medication Instructions Recorded Last Taken Type Folic Acid [Folvite] 1 mg PO QDAY #30 tablet 03/08/19 Unknown Rx cefUROXime [Ceftin] 2 tab PO Q12H #20 tablet 03/08/19 Unknown Rx Allergies Allergy/AdvReac Type Severity Reaction Status Date / Time duloxetine [From Cymbalta] Allergy Shortness Verified 03/04/19 17:21 of Breath fentanyl Allergy Anaphylaxis Verified 03/04/19 17:21 influenza virus vaccine ts Allergy Hives Verified 03/04/19 17:21 [id number] (36 mos,up) [From Fluarix] iodine Allergy Anaphylaxis Verified 03/04/19 17:21 NSAIDS (Non-Steroidal AdvReac Seizure Verified 03/04/19 17:21 Anti-Inflamma IV contrast Allergy Seizure Uncoded 03/04/19 17:21 seafood AdvReac Swelling Uncoded 03/04/19 17:21 ED Review of Systems ROS: Stated complaint: SICKLE CELL Other details as noted in HPI ED Past Medical Hx - Past Medical History Previous Medical History?: Yes Hx Congestive Heart Failure: No Hx Diabetes: No Hx Sickle Cell Disease: Yes Hx Headaches / Migraines: Yes Hx Seizures: Yes Hx Psychiatric Treatment: Yes (panic attackes, depression, bipolar) Hx Asthma: No Hx COPD: No Additional medical history: chronic chest pain, PALPITATIONS - Surgical History Past Surgical History?: Yes Additional Surgical History: SPLEENECTOMY, RIGHT SIDE PORT, BIOPSY (lungs and neck) - Social History Smoking Status: Never Smoker Substance Use Type: None - Medications Home Medications: Home Medications Medication Instructions Recorded Confirmed Last Taken Type Diphenhydramine HCl 50 mg PO 4XD 07/02/16 03/04/19 03/04/19 History Divalproex [Christophe Maldonado] 500 mg PO BID 07/02/16 03/04/19 01/09/19 History Gabapentin 1,200 mg PO TID 07/02/16 03/04/19 03/04/19 History Hydroxyurea [Hydrea] 1,000 mg PO BID 07/02/16 03/04/19 03/04/19 History Keppra TAB 1,000 mg PO BID 07/02/16 03/04/19 03/03/19 History Apixaban [Eliquis] 5 mg PO DAILY 02/19/19 03/04/19 03/04/19 History Escitalopram Oxalate [Lexapro] 20 mg PO QDAY 02/19/19 03/04/19 03/03/19 History Oxycodone HCl [roxiCODONE] 30 mg PO Q8H 02/19/19 03/04/19 03/03/19 History QUEtiapine [SEROquel] 100 mg PO BID 02/19/19 03/04/19 03/03/19 History oxyCODONE /ACETAMINOPHEN [Percocet 2 tab PO Q6HR PRN 02/19/19 03/04/19 03/03/19 History 5/325 mg] Folic Acid [Folvite] 1 mg PO QDAY #30 tablet 03/08/19 Unknown Rx cefUROXime [Ceftin] 2 tab PO Q12H #20 tablet 03/08/19 Unknown Rx ED Physical Exam - General Limitations: No Limitations General appearance: alert, in no apparent distress - Head Head exam: Present: atraumatic, normocephalic - Eye Eye exam: Present: normal appearance - ENT ENT exam: Present: mucous membranes moist - Respiratory Respiratory exam: Present: normal lung sounds bilaterally, chest wall tenderness (right upper) - Cardiovascular Cardiovascular Exam: Present: regular rate - GI/Abdominal GI/Abdominal exam: Present: soft, tenderness - Back Exam Back exam: Present: full ROM, tenderness - Neurological Exam Neurological exam: Present: alert, oriented X3 - Psychiatric Psychiatric exam: Present: normal affect, normal mood - Skin Skin exam: Present: warm, dry, intact, normal color. Absent: rash ED Course Vital Signs 05/15/19 05/15/19 10:09 14:05 Temperature 98.9 F 98.0 F Pulse Rate 97 H 74 Respiratory 16 18 Rate Blood Pressure 116/69 Blood Pressure 110/40 [Left] O2 Sat by Pulse 97 97 Oximetry - Reevaluation(s) Reevaluation #1: 05/15/19 15:04 Patient reports that he feels much better and that he is able to be discharged home. ED Medical Decision Making - Lab Data Result diagrams: 05/15/19 10:19 05/15/19 10:19 - Medical Decision Making 33-year-old -[place]ian male with a current history of sickle cell crisis presents to the emergency room for generalized sickle cell pain since Saturday and has gotten worse. Patient states he is not getting any relief from his current regiment. Patient reports that his pain is in his hips, back, joints, right chest. Patient reports his pain is greater than a 10. Patient reports he usually gets infusions of D5 saline with Benadryl 2 bags every other week. Patient reports he is compliant on his pain medication. Patient did not report any seizure activity. Review of patient's chart shows that he has had a history of DVTs. Her last admission was February 19, 2019. Patient reports his normal regiment is Dilaudid 2 mg every 3 hours. Patient has multiple allergies to fentanyl NSAIDs seafood IV contrast Cymbalta. Critical care attestation.: If time is entered above; I have spent that time in minutes in the direct care of this critically ill patient, excluding procedure time. ED Disposition Clinical Impression: Sickle cell pain crisis Disposition: DC-01 TO HOME OR SELFCARE Is pt being admited?: No Does the pt Need Aspirin: No Condition: Stable Instructions: Sickle Cell Crisis (ED) Additional Instructions: Continue to take all of your medications as prescribed. Follow-up with your primary provider. Please increase your fluid intake. Referrals: PRIMARY CARE, [Primary Care Provider] - 3-5 Days
[2019-05-15] MEDS ORDERED: D5W/0.2% NACL 1,000 ML IV SCH (12:00)
[2019-05-15 14:16] VITALS: BP 110/40
== END 2019-05-15 15:57 | disposition home or self-care (01) ==
LOC: ED 10:02
DX: D57.819 Other sickle-cell disorders with crisis, unspecified (principal); G43.909 Migraine, unspecified, not intractable, without status migrainosus; Z90.89 Acquired absence of other organs; Z79.899 Other long term (current) drug therapy; Z88.8 Allergy status to other drugs, medicaments and biological substances; Z91.013 Allergy to seafood; Z91.041 Radiographic dye allergy status
CPT/HCPCS: 36415; 80053; 85025; 85045; 85610; 85730; 96374; 96375; 96376; 99283; J1170; J1200; J2405

== ENCOUNTER 2019-07-08 10:33 | Emergency (ER) | payer MEDICARE ==
--- NOTE | 2019-07-08 11:19 | Emergency Department Report ---
ED General Adult HPI - General Chief complaint: Sickle Cell Crisis Stated complaint: SICKLE CELL CRISIS Time Seen by Provider: 07/08/19 10:45 Source: patient Mode of arrival: Ambulatory Limitations: No Limitations - History of Present Illness Initial comments: 33-year-old male with a past medical history of sickle cell disease presents to the hospital complaining of pain secondary to sickle cell crisis. Patient received weekly fluid infusions at [facility]. Patient complaining of pain to his hips, back, and joints that is moderate to severe in intensity. Pain is alleviated with his current oxycodone 30 mg and Percocet 10 mg. Patient is currently on Eliquis for DVTs. No complaints of abdominal pain, fever, chest pain, shortness of breath. Optometric Technician, Dr. Patel - Related Data Home Medications Medication Instructions Recorded Confirmed Last Taken Diphenhydramine HCl 50 mg PO 4XD 07/02/16 03/04/19 03/04/19 Divalproex [Christophe Maldonado] 500 mg PO BID 07/02/16 03/04/19 01/09/19 Gabapentin 1,200 mg PO TID 07/02/16 03/04/19 03/04/19 Hydroxyurea [Hydrea] 1,000 mg PO BID 07/02/16 03/04/19 03/04/19 Keppra TAB 1,000 mg PO BID 07/02/16 03/04/19 03/03/19 Apixaban [Eliquis] 5 mg PO DAILY 02/19/19 03/04/19 03/04/19 Escitalopram Oxalate [Lexapro] 20 mg PO QDAY 02/19/19 03/04/19 03/03/19 Oxycodone HCl [roxiCODONE] 30 mg PO Q8H 02/19/19 03/04/19 03/03/19 QUEtiapine [SEROquel] 100 mg PO BID 02/19/19 03/04/19 03/03/19 oxyCODONE /ACETAMINOPHEN [Percocet 2 tab PO Q6HR PRN 02/19/19 03/04/19 03/03/19 5/325 mg] Previous Rx's Medication Instructions Recorded Last Taken Type Folic Acid [Folvite] 1 mg PO QDAY #30 tablet 03/08/19 Unknown Rx cefUROXime [Ceftin] 2 tab PO Q12H #20 tablet 03/08/19 Unknown Rx Allergies Allergy/AdvReac Type Severity Reaction Status Date / Time duloxetine [From Cymbalta] Allergy Shortness Verified 03/04/19 17:21 of Breath fentanyl Allergy Anaphylaxis Verified 03/04/19 17:21 influenza virus vaccine ts Allergy Hives Verified 03/04/19 17:21 [id number] (36 mos,up) [From Fluarix] iodine Allergy Anaphylaxis Verified 03/04/19 17:21 NSAIDS (Non-Steroidal AdvReac Seizure Verified 03/04/19 17:21 Anti-Inflamma IV contrast Allergy Seizure Uncoded 03/04/19 17:21 seafood AdvReac Swelling Uncoded 03/04/19 17:21 ED Review of Systems ROS: Stated complaint: SICKLE CELL CRISIS Other details as noted in HPI Comment: All other systems reviewed and negative ED Past Medical Hx - Past Medical History Previous Medical History?: Yes Hx Congestive Heart Failure: No Hx Diabetes: No Hx Sickle Cell Disease: Yes Hx Headaches / Migraines: Yes Hx Seizures: Yes Hx Psychiatric Treatment: Yes (panic attacks, depression, bipolar) Hx Asthma: No Hx COPD: No Additional medical history: chronic chest pain, PALPITATIONS - Surgical History Past Surgical History?: Yes Additional Surgical History: SPLEENECTOMY, RIGHT SIDE PORT, BIOPSY (lungs and neck) - Social History Smoking Status: Current Every Day Smoker Substance Use Type: None - Medications Home Medications: Home Medications Medication Instructions Recorded Confirmed Last Taken Type Diphenhydramine HCl 50 mg PO 4XD 07/02/16 03/04/19 03/04/19 History Divalproex [Christophe Maldonado] 500 mg PO BID 07/02/16 03/04/19 01/09/19 History Gabapentin 1,200 mg PO TID 07/02/16 03/04/19 03/04/19 History Hydroxyurea [Hydrea] 1,000 mg PO BID 07/02/16 03/04/19 03/04/19 History Keppra TAB 1,000 mg PO BID 07/02/16 03/04/19 03/03/19 History Apixaban [Eliquis] 5 mg PO DAILY 02/19/19 03/04/19 03/04/19 History Escitalopram Oxalate [Lexapro] 20 mg PO QDAY 02/19/19 03/04/19 03/03/19 History Oxycodone HCl [roxiCODONE] 30 mg PO Q8H 02/19/19 03/04/19 03/03/19 History QUEtiapine [SEROquel] 100 mg PO BID 02/19/19 03/04/19 03/03/19 History oxyCODONE /ACETAMINOPHEN [Percocet 2 tab PO Q6HR PRN 02/19/19 03/04/19 03/03/19 History 5/325 mg] Folic Acid [Folvite] 1 mg PO QDAY #30 tablet 03/08/19 Unknown Rx cefUROXime [Ceftin] 2 tab PO Q12H #20 tablet 03/08/19 Unknown Rx ED Physical Exam - General Limitations: No Limitations - Other Other exam information: General: No acute distress Head: Atraumatic Eyes: normal appearance ENT: Moist mucous membranes Neck: Normal appearance, no midline tenderness Chest: Clear to auscultation bilaterally CV: Regular rate and rhythm Abdomen: Soft, normal bowel sounds, nontender, nondistended, no rebound or guarding Back: Normal inspection Extremity: Normal inspection, full range of motion Neuro: Alert O x 3, no facial asymmetry, speech clear, no gross motor sensory deficit Psych: Appropriate behavior Skin: No rash ED Course Vital Signs 07/08/19 07/08/19 07/08/19 10:38 11:02 11:30 Temperature 98.3 F Pulse Rate 80 67 Respiratory 20 12 Rate Blood Pressure 138/69 118/64 105/62 O2 Sat by Pulse 98 97 Oximetry 07/08/19 07/08/19 07/08/19 12:00 12:30 13:00 Temperature Pulse Rate 70 66 60 Respiratory 9 L 11 L 9 L Rate Blood Pressure 115/64 110/59 121/63 O2 Sat by Pulse 99 97 99 Oximetry 07/08/19 13:30 Temperature Pulse Rate 66 Respiratory 14 Rate Blood Pressure 116/66 O2 Sat by Pulse 98 Oximetry ED Medical Decision Making - Lab Data Result diagrams: 07/08/19 10:47 07/08/19 10:47 Lab Results 07/08/19 07/08/19 Range/Units 10:47 10:47 WBC 11.1 H (4.5-11.0) K/mm3 RBC 4.27 (3.65-5.03) M/mm3 Hgb 12.6 (11.8-15.2) gm/dl Hct 36.6 (35.5-45.6) % MCV 86 (84-94) fl MCH 30 (28-32) pg MCHC 34 (32-34) % RDW 15.1 (13.2-15.2) % Plt Count 510 H (140-440) K/mm3 Lymph # Computer Applications Engineer Add Manual Diff Complete Total Counted 100 Seg Neuts % (Manual) 50.0 (40.0-70.0) % Band Neutrophils % 1.0 % Lymphocytes % (Manual) 40.0 H (13.4-35.0) % Reactive Lymphs % (Man) 0 % Monocytes % (Manual) 6.0 (0.0-7.3) % Eosinophils % (Manual) 3.0 (0.0-4.3) % Basophils % (Manual) 0 (0.0-1.8) % Metamyelocytes % 0 % Myelocytes % 0 % Promyelocytes % 0 % Blast Cells % 0 % Nucleated RBC % 3.0 H (0.0-0.9) % Seg Neutrophils # Man 5.6 (1.8-7.7) K/mm3 Band Neutrophils # 0.1 K/mm3 Lymphocytes # (Manual) 4.4 (1.2-5.4) K/mm3 Abs React Lymphs (Man) 0.0 K/mm3 Monocytes # (Manual) 0.7 (0.0-0.8) K/mm3 Eosinophils # (Manual) 0.3 (0.0-0.4) K/mm3 Basophils # (Manual) 0.0 (0.0-0.1) K/mm3 Metamyelocytes # 0.0 K/mm3 Myelocytes # 0.0 K/mm3 Promyelocytes # 0.0 K/mm3 Blast Cells # 0.0 K/mm3 WBC Morphology Not Reportable Hypersegmented Neuts Not Reportable Hyposegmented Neuts Not Reportable Hypogranular Neuts Not Reportable Smudge Cells Not Reportable Toxic Granulation Not Reportable Toxic Vacuolation Not Reportable Dohle Bodies Not Reportable Pelger-Huet Anomaly Not Reportable Steve Rods Not Reportable Platelet Estimate Consistent w auto Clumped Platelets Not Reportable Plt Clumps, EDTA Not Reportable Large Platelets Few Giant Platelets Not Reportable Platelet Satelliting Not Reportable Plt Morphology Comment Not Reportable RBC Morphology Not Reportable Dimorphic RBCs Not Reportable Polychromasia Few Hypochromasia Not Reportable Poikilocytosis Not Reportable Anisocytosis Few Microcytosis Not Reportable Macrocytosis Few Spherocytes Not Reportable Pappenheimer Bodies Not Reportable Sickle Cells Rare Target Cells 1+ Tear Drop Cells Not Reportable Ovalocytes Not Reportable Helmet Cells Not Reportable Ballrad-Twain Bodies Not Reportable [place] Rings Not Reportable [place] Cells Not Reportable Bite Cells Not Reportable Crenated Cell Not Reportable Elliptocytes Not Reportable Acanthocytes (Spur) Not Reportable Rouleaux Not Reportable Hemoglobin C Crystals Not Reportable Schistocytes Not Reportable Malaria parasites Not Reportable Percent Retic 3.34 H (0.78-2.58) % Dayo Bodies Not Reportable Hem Pathologist Commnt No Sodium 140 (137-145) mmol/L Potassium 3.5 L (3.6-5.0) mmol/L Chloride 103.3 (98-107) mmol/L Carbon Dioxide 25 (22-30) mmol/L Anion Gap 15 mmol/L BUN 9 (9-20) mg/dL Creatinine 0.8 (0.8-1.5) mg/dL Estimated GFR > 60 ml/min BUN/Creatinine Ratio 11 % Glucose 84 (75-100) mg/dL Calcium 9.5 (8.4-10.2) mg/dL Total Bilirubin 0.70 (0.1-1.2) mg/dL AST 15 (5-40) units/L ALT 10 (7-56) units/L Alkaline Phosphatase 79 (35-129) units/L Total Protein 7.9 (6.3-8.2) g/dL Albumin 4.6 (3.9-5) g/dL Albumin/Globulin Ratio 1.4 % - Medical Decision Making Patient feeling better ED treatment including Dilaudid, Zofran, Benadryl, and IV hydration. Does not require blood transfusion. Will be discharged to follow- up with tool tender - Differential Diagnosis Sickle cell crisis, anemia Critical Care Time: No Critical care attestation.: If time is entered above; I have spent that time in minutes in the direct care of this critically ill patient, excluding procedure time. ED Disposition Clinical Impression: Sickle cell pain crisis Disposition: DC- TO HOME OR SELFCARE Is pt being admited?: No Condition: Stable Instructions: Sickle Cell Crisis (ED) Additional Instructions: Continue your medication as prescribed. Follow-up with your doctor or doctor/clinic provided. Return if symptoms worsen as indicated by your discharge instructions. Referrals: RACHEL GUPTA DO [Staff Physician] - 2-3 Days Time of Disposition: 14:10
[2019-07-08] MEDS: ONDANSETRON 4 MG/2 ML INJ IV ONE (11:41)
[2019-07-08] MEDS: D5W/0.2% NACL 1,000 ML IV SCH (11:41)
[2019-07-08] MEDS: diphenhydrAMINE 50 MG/ML VIAL IV ONE (11:41)
[2019-07-08] MEDS: HYDROmorphone 2 MG/1 ML INJ IV ONE ×2 (11:41→13:08)
[2019-07-08 11:54] LABS: Alanine Aminotransferase 10 units/L (7-56); Albumin 4.6 g/dL (3.9-5); BUN/Creatinine Ratio 11; Blood Urea Nitrogen 9 mg/dL (9-20); Calcium 9.5 mg/dL (8.4-10.2); Hemolysis Index 5
[2019-07-08 12:03] LABS: Hematocrit 36.6 % (35.5-45.6); Hemoglobin 12.6 gm/dl (11.8-15.2); Mean Corpuscular HGB Conc 34 % (32-34); Mean Corpuscular Volume 86 fl (84-94); Platelet Count 510 K/mm3 (140-440); Red Blood Count 4.27 M/mm3 (3.65-5.03); Red Cell Distribution Width 15.1 % (13.2-15.2)
[2019-07-08 12:50] LABS: Band Neutrophils # (Manual) 0.1 K/mm3; Basophils % (Manual) 0 % (0.0-1.8); Total Cells Counted 100
[2019-07-08 12:51] LABS: Anisocytosis Few; Large Platelets Few; Macrocytosis Few; Platelet Estimate Consistent w Auto; Sickle Cells Rare; Target Cells 1+
[2019-07-08 14:19] VITALS: BP 118/58
== END 2019-07-08 14:19 | disposition home or self-care (01) ==
LOC: ED 10:33
DX: D57.819 Other sickle-cell disorders with crisis, unspecified (principal); G43.909 Migraine, unspecified, not intractable, without status migrainosus; F31.9 Bipolar disorder, unspecified; F17.200 Nicotine dependence, unspecified, uncomplicated; Z90.79 Acquired absence of other genital organ(s); Z88.6 Allergy status to analgesic agent
CPT/HCPCS: 36415; 80053; 85007; 85025; 85045; 96374; 96375; 96376; 99284; J1170; J1200; J2405

== ENCOUNTER 2019-08-12 22:31 | Emergency (ER) | payer MEDICARE ==
[2019-08-13] MEDS ORDERED: HYDROmorphone 2 MG/1 ML INJ IV ONE ×3 (01:28→04:31)
[2019-08-13] MEDS ORDERED: diphenhydrAMINE 25 MG CAP PO ONE (01:28)
--- NOTE | 2019-08-13 01:29 | Event Note ---
Date: 08/13/19 33-year-old gentleman presenting with sickle cell pain and crisis. He appears pleasant, calm and cooperative. Request that his port be accessed. Check labs, give fluids, pain medication, oral Benadryl, reassess.
[2019-08-13] MEDS ORDERED: D5W/0.45% NACL 1,000 ML IV SCH (02:00)
--- NOTE | 2019-08-13 02:55 | Emergency Department Report ---
ED General Adult HPI - General Chief complaint: Sickle Cell Crisis Stated complaint: SICKLE CELL CRISIS PUI?: No Time Seen by Provider: 08/13/19 02:36 Source: patient, RN notes reviewed, old records reviewed Mode of arrival: Ambulatory Limitations: No Limitations - History of Present Illness Initial comments: Primary care ui developer: Dr. Rachel Gupta Patient is a 33-year-old gentleman. He is not known to myself previously. He has a history of sickle cell pain, right-sided PowerPort, seizure, bipolar, presenting to the ER today with a complaint of sickle cell pain and crisis. He complains of bilateral lower extremity pain and myalgias, left-sided chest wall pain, and back pain. There is no headache, neck pain, sore throat, vomiting, diaphoresis, irritative or obstructive urinary symptoms, and he denies fever, cough, and coronavirus symptomatology. His pain is typically improved with fluids, hydromorphone, and Benadryl. In the emergency room, he was treated with the aforementioned, and appeared improved. -: Gradual, days(s) Location: back, left, right, upper extremity, lower extremity Quality: aching Consistency: constant Improves with: medication, rest Worsens with: movement - Related Data Home Medications Medication Instructions Recorded Confirmed Last Taken Diphenhydramine HCl 50 mg PO 4XD 07/02/16 03/04/19 03/04/19 Divalproex [Christophe Maldonado] 500 mg PO BID 07/02/16 03/04/19 01/09/19 Gabapentin 1,200 mg PO TID 07/02/16 03/04/19 03/04/19 Hydroxyurea [Hydrea] 1,000 mg PO BID 07/02/16 03/04/19 03/04/19 Keppra TAB 1,000 mg PO BID 07/02/16 03/04/19 03/03/19 Apixaban [Eliquis] 5 mg PO DAILY 02/19/19 03/04/19 03/04/19 Escitalopram Oxalate [Lexapro] 20 mg PO QDAY 02/19/19 03/04/19 03/03/19 Oxycodone HCl [roxiCODONE] 30 mg PO Q8H 02/19/19 03/04/19 03/03/19 QUEtiapine [SEROquel] 100 mg PO BID 02/19/19 03/04/19 03/03/19 oxyCODONE /ACETAMINOPHEN [Percocet 2 tab PO Q6HR PRN 02/19/19 03/04/19 03/03/19 5/325 mg] Previous Rx's Medication Instructions Recorded Last Taken Type Folic Acid [Folvite] 1 mg PO QDAY #30 tablet 03/08/19 Unknown Rx cefUROXime [Ceftin] 2 tab PO Q12H #20 tablet 03/08/19 Unknown Rx Allergies Allergy/AdvReac Type Severity Reaction Status Date / Time duloxetine [From Cymbalta] Allergy Shortness Verified 08/12/19 22:35 of Breath fentanyl Allergy Anaphylaxis Verified 08/12/19 22:35 influenza virus vaccine ts Allergy Hives Verified 08/12/19 22:35 [id number] (36 mos,up) [From Fluarix] iodine Allergy Anaphylaxis Verified 08/12/19 22:35 NSAIDS (Non-Steroidal AdvReac Seizure Verified 08/12/19 22:35 Anti-Inflamma IV contrast Allergy Seizure Uncoded 08/12/19 22:35 seafood AdvReac Swelling Uncoded 08/12/19 22:35 ED Review of Systems ROS: Stated complaint: SICKLE CELL CRISIS Other details as noted in HPI Constitutional: denies: fever, malaise Eyes: denies: eye discharge ENT: denies: congestion Respiratory: denies: wheezing Cardiovascular: denies: syncope Gastrointestinal: denies: abdominal pain Genitourinary: denies: dysuria Musculoskeletal: arthralgia, myalgia Skin: as per HPI Psychiatric: as per HPI, anxiety ED Past Medical Hx - Past Medical History Hx Congestive Heart Failure: No Hx Diabetes: No Hx Sickle Cell Disease: Yes Hx Headaches / Migraines: Yes Hx Seizures: Yes Hx Psychiatric Treatment: Yes (panic attacks, depression, bipolar) Hx Asthma: No Hx COPD: No Additional medical history: chronic chest pain, PALPITATIONS - Surgical History Additional Surgical History: SPLEENECTOMY, RIGHT SIDE PORT, BIOPSY (lungs and neck) - Social History Smoking Status: Current Every Day Smoker Substance Use Type: Alcohol - Medications Home Medications: Home Medications Medication Instructions Recorded Confirmed Last Taken Type Diphenhydramine HCl 50 mg PO 4XD 07/02/16 03/04/19 03/04/19 History Divalproex [Christophe Maldonado] 500 mg PO BID 07/02/16 03/04/19 01/09/19 History Gabapentin 1,200 mg PO TID 07/02/16 03/04/19 03/04/19 History Hydroxyurea [Hydrea] 1,000 mg PO BID 07/02/16 03/04/19 03/04/19 History Keppra TAB 1,000 mg PO BID 07/02/16 03/04/19 03/03/19 History Apixaban [Eliquis] 5 mg PO DAILY 02/19/19 03/04/19 03/04/19 History Escitalopram Oxalate [Lexapro] 20 mg PO QDAY 02/19/19 03/04/19 03/03/19 History Oxycodone HCl [roxiCODONE] 30 mg PO Q8H 02/19/19 03/04/19 03/03/19 History QUEtiapine [SEROquel] 100 mg PO BID 02/19/19 03/04/19 03/03/19 History oxyCODONE /ACETAMINOPHEN [Percocet 2 tab PO Q6HR PRN 02/19/19 03/04/19 03/03/19 History 5/325 mg] Folic Acid [Folvite] 1 mg PO QDAY #30 tablet 03/08/19 Unknown Rx cefUROXime [Ceftin] 2 tab PO Q12H #20 tablet 03/08/19 Unknown Rx ED Physical Exam - General Limitations: No Limitations General appearance: alert, in no apparent distress - Head Head exam: Present: atraumatic, normocephalic - Eye Eye exam: Present: normal appearance, PERRL, EOMI. Absent: scleral icterus, nystagmus - ENT ENT exam: Present: normal exam, normal orophraynx, mucous membranes moist, normal external ear exam - Neck Neck exam: Present: normal inspection, full ROM. Absent: tenderness, meningismus - Respiratory Respiratory exam: Present: normal lung sounds bilaterally, chest wall tenderness. Absent: respiratory distress - Cardiovascular Cardiovascular Exam: Present: regular rate, normal rhythm, normal heart sounds. Absent: bradycardia, tachycardia, irregular rhythm, systolic murmur, diastolic murmur, rubs, gallop - GI/Abdominal GI/Abdominal exam: Present: soft. Absent: distended, tenderness, guarding, rebound, rigid, pulsatile mass - Rectal Rectal exam: Present: deferred - Extremities Exam Extremities exam: Present: normal inspection, full ROM, tenderness, other (2+ pulses noted in the bilateral upper extremities. There is bilateral lower extremity long bony tenderness, without redness, pus or streaking.). Absent: pedal edema, calf tenderness - Back Exam Back exam: Present: normal inspection, full ROM, paraspinal tenderness. Absent: CVA tenderness (R), CVA tenderness (L) - Neurological Exam Neurological exam: Present: alert, oriented X3, normal gait, other (No facial droop. Tongue midline. Extraocular movements intact bilaterally. Facial sensation intact to light touch in V1, V2, V3 distribution bilaterally. 5 and a 5 strength in 4 extremities. Sensation intact to light touch in 4 extremities.). Absent: motor sensory deficit - Psychiatric Psychiatric exam: Present: normal affect, normal mood - Skin Skin exam: Present: warm, dry, intact, normal color. 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 08/11/2019 3 08/11/2019 OXYCODONE-ACETAMINOPHEN 10-325 60.0 15 AN EDIL [id number] [facility] (3616) 0 60.0 MME Comm [place] 08/11/2019 3 08/11/2019 OXYCODONE HCL 30 MG TABLET 90.0 15 AN EDIL [id number] [facility] (3616) 0 270.0 [place] 07/31/2019 4 07/01/2019 LORAZEPAM 1 MG TABLET 30.0 30 ME PHI [id number] [facility] (6098) 1 [place] 07/28/2019 3 07/28/2019 OXYCODONE-ACETAMINOPHEN 10-325 60.0 15 AN EDIL [id number] [facility] (3616) 0 60.0 [place] 07/28/2019 3 07/28/2019 OXYCODONE HCL 30 MG TABLET 90.0 15 AN EDIL [id number] [facility] (3616) 0 270.0 [place] 07/14/2019 3 07/14/2019 OXYCODONE-ACETAMINOPHEN 10-325 60.0 14 AN EDIL [id number] [facility] (3616) 0 64.29 [place] 07/14/2019 3 07/14/2019 OXYCODONE HCL 30 MG TABLET 90.0 15 AN EDIL [id number] [facility] (3616) 0 270.0 [place] 07/02/2019 4 07/01/2019 LORAZEPAM 1 MG TABLET 30.0 30 ME PHI [id number] [facility] (6098) 0 [place] 06/30/2019 3 06/30/2019 OXYCODONE-ACETAMINOPHEN 10-325 60.0 15 AN EDIL [id number] [facility] (3616) 0 60.0 [place] 06/30/2019 3 06/30/2019 OXYCODONE HCL 30 MG TABLET 90.0 15 AN EDIL [id number] [facility] (3616) 0 270.0 [place] 06/16/2019 3 06/16/2019 OXYCODONE-ACETAMINOPHEN 10-325 60.0 14 AN EDIL [id number] [facility] (3616) 0 64.29 [place] 06/16/2019 3 06/16/2019 OXYCODONE HCL 30 MG TABLET 90.0 15 AN EDIL [id number] [facility] (3616) 0 270.0 [place] 06/02/2019 1 06/02/2019 OXYCODONE-ACETAMINOPHEN 10-325 60.0 15 AN EDIL [id number] [facility] (3616) 0 60.0 [place] 06/02/2019 1 06/02/2019 OXYCODONE HCL 30 MG TABLET 90.0 15 AN EDIL [id number] [facility] (3616) 0 270.0 [place] 05/19/2019 1 05/19/2019 OXYCODONE-ACETAMINOPHEN 10-325 60.0 14 AN EDIL [id number] [facility] (3616) 0 64.29 [place] Comm [place] 05/19/2019 1 05/19/2019 OXYCODONE HCL 30 MG TABLET 90.0 16 AN EDIL [id number] [facility] (3616) 0 253.13 MME Comm [facility] 05/05/2019 1 05/05/2019 OXYCODONE-ACETAMINOPHEN 10-325 60.0 15 AN EDIL [id number] [facility] (3616) 0 60.0 [place] 05/05/2019 1 05/05/2019 OXYCODONE HCL 30 MG TABLET 90.0 14 AN EDIL [id number] [facility] (3616) 0 289.29 [place] 04/23/2019 4 04/23/2019 LORAZEPAM 1 MG TABLET 30.0 30 ME PHI [id number] [facility] (6098) 0 [place] 04/21/2019 1 04/21/2019 OXYCODONE-ACETAMINOPHEN 10-325 60.0 14 AN EDIL [id number] [facility] (3616) 0 64.29 [place] 04/21/2019 1 04/21/2019 OXYCODONE HCL 30 MG TABLET 90.0 14 AN EDIL [id number] [facility] (3616) 0 289.29 [place] 04/07/2019 1 04/07/2019 OXYCODONE-ACETAMINOPHEN 10-325 60.0 15 AN EDIL [id number] [facility] (3616) 0 60.0 [place] 04/07/2019 1 04/07/2019 OXYCODONE HCL 30 MG TABLET 90.0 15 AN EDIL [id number] [facility] (3616) 0 270.0 [place] 03/31/2019 4 02/18/2019 DIAZEPAM 5 MG TABLET 45.0 30 OL CIERA [id number] [facility] (6098) 1 [place] 03/24/2019 1 03/24/2019 OXYCODONE-ACETAMINOPHEN 10-325 60.0 14 AN EDIL [id number] [facility] (3616) 0 64.29 [place] 03/24/2019 1 03/24/2019 OXYCODONE HCL 30 MG TABLET 60.0 14 AN EDIL [id number] [facility] (3616) 0 192.86 M[facility] [place] Reevaluation #2: 08/13/19 04:41 Differential diagnosis, including but not limited to: Sickle cell crisis, narcotic dependence Assessment and plan: 33-year-old gentleman, who complains of sickle crisis. During his entire stay in the emergency room, he is pleasant, calm and cooperative, jovial, joking with nursing staff, and does not appear to be in any significant distress. He has no scleral icterus, he is noted to be playing on a laptop computer, and on his cell phone, and continues to joke with staff. His leukocytosis is reviewed and appreciated, so I do suspect that there is a component of acute sickle cell crisis, however, given his remarkably benign appearance, comfort, and overall jovial nature with staff, I am of the opinion that we can treat his breakthrough pain with hydromorphone, and discharge him to follow-up with his outpatient ui developer, who, as per review of [place] prescription monitoring database, recently prescribed the patient outpatient narcotics. We will obtain an x-ray of the chest. If unremarkable, will discharge the patient to follow-up with his outpatient ui developer Reevaluation #3: 08/13/19 05:27 The patient is now sleeping in his stretcher. He does not appear to be in any acute distress. His x-ray of the chest, interpreted by myself, shows no acute findings. ED Medical Decision Making - Lab Data Result diagrams: 08/13/19 03:15 08/13/19 03:15 Vital Signs 08/12/19 08/13/19 22:36 03:26 Temperature 99.5 F Pulse Rate 111 H 75 Respiratory 18 15 Rate Blood Pressure 124/66 Blood Pressure 110/68 [left arm] O2 Sat by Pulse 97 95 Oximetry Lab Results 08/13/19 08/13/19 Range/Units 03:15 03:15 WBC 20.9 H (4.5-11.0) K/mm3 RBC 4.64 (3.65-5.03) M/mm3 Hgb 13.7 (11.8-15.2) gm/dl Hct 39.7 (35.5-45.6) % MCV 86 (84-94) fl MCH 30 (28-32) pg MCHC 35 H (32-34) % RDW 14.9 (13.2-15.2) % Plt Count 440 (140-440) K/mm3 Lymph # Associate Theatre Professor Percent Retic 3.53 H (0.78-2.58) % Sodium 136 L (137-145) mmol/L Potassium 4.2 (3.6-5.0) mmol/L Chloride 97.3 L (98-107) mmol/L Carbon Dioxide 23 (22-30) mmol/L Anion Gap 20 mmol/L BUN 17 (9-20) mg/dL Creatinine 1.8 H (0.8-1.5) mg/dL Estimated GFR 53 ml/min BUN/Creatinine Ratio 9 % Glucose 80 (75-100) mg/dL Calcium 10.8 H (8.4-10.2) mg/dL Magnesium 2.10 (1.7-2.3) mg/dL Total Creatine Kinase 155 (55-170) units/L - Radiology Data Radiology results: image reviewed interpreted by me: X-ray of the chest appears to be negative for acute disease Critical care attestation.: If time is entered above; I have spent that time in minutes in the direct care of this critically ill patient, excluding procedure time. ED Disposition Clinical Impression: Sickle cell pain crisis Disposition: TO HOME OR SELFCARE Is pt being admited?: No Does the pt Need Aspirin: No Condition: Stable Instructions: Sickle Cell Crisis (ED) Additional Instructions: Please continue current medications. Please follow-up with your outpatient ui developer within the next 3 to 5 days. Please return to the emergency room right away with new pain, worsening pain, m igration of pain, rectal vomiting, change in mental status, confusion, inability to tolerate liquid feeds, new, worsened or different symptoms not present on the initial emergency room evaluation, fevers, chills, cough, shortness of breath, malaise or fatigue. Make certain to wash hands with soap and water often and frequently, please continue to socially distance and self isolate. Referrals: RACHEL GUPTA DO [Staff Physician] - 3-5 Days
[2019-08-13 03:41] LABS: Hematocrit 39.7 % (35.5-45.6); Hemoglobin 13.7 gm/dl (11.8-15.2); Mean Corpuscular HGB Conc 35 % (32-34); Mean Corpuscular Volume 86 fl (84-94); Red Blood Count 4.64 M/mm3 (3.65-5.03); Red Cell Distribution Width 14.9 % (13.2-15.2)
[2019-08-13 03:45] LABS: Platelet Count 440 K/mm3 (140-440)
[2019-08-13 03:47] LABS: Calcium 10.8 mg/dL (8.4-10.2)
[2019-08-13] MEDS ORDERED: HYDROmorphone 2 MG/1 ML INJ ONE (04:05)
[2019-08-13 04:53] VITALS: BP 119/70
--- NOTE | 2019-08-13 05:28 | XRay Report ---
CHEST 1 VIEW INDICATION / CLINICAL INFORMATION: thorax pain hbss crisis. COMPARISON: None available. FINDINGS: SUPPORT DEVICES: Right-sided central venous line terminates at the SVC/right atrial junction.. HEART / MEDIASTINUM: No significant abnormality. LUNGS / PLEURA: No significant pulmonary or pleural abnormality. No pneumothorax. ADDITIONAL FINDINGS: No significant additional findings. IMPRESSION: 1. No acute findings. Signer Name: Salomón Winston MD Signed: 08/13/2019 5:24 AM Workstation Name: [email or web address]
[2019-08-13 05:56] LABS: Basophils % (Manual) 0 % (0.0-1.8); Total Cells Counted 100
[2019-08-13 05:57] LABS: Anisocytosis 1+
[2019-08-13 05:58] LABS: Large Platelets Few; Platelet Estimate Consistent w Auto; Poikilocytosis 1+; Target Cells 1+
== END 2019-08-13 05:40 | disposition home or self-care (01) ==
LOC: ED 22:31
DX: D57.00 Hb-SS disease with crisis, unspecified (principal); G43.909 Migraine, unspecified, not intractable, without status migrainosus; R56.9 Unspecified convulsions; F17.200 Nicotine dependence, unspecified, uncomplicated; Z90.89 Acquired absence of other organs; Z98.890 Other specified postprocedural states; Z79.899 Other long term (current) drug therapy; Z88.8 Allergy status to other drugs, medicaments and biological substances
CPT/HCPCS: 36415; 71045; 80048; 82550; 83735; 85007; 85025; 85045; 96374; 96376; 99284; J1170

== ENCOUNTER 2019-12-16 18:16 | Emergency (ER) | payer MEDICARE ==
--- NOTE | 2019-12-16 19:07 | Emergency Department Report ---
Blank Doc - Documentation Documentation: 34-year-old male that presents with sickle cell crisis. This initial assessment/diagnostic orders/clinical plan/treatment(s) is/are subject to change based on patient's health status, clinical progression and re- assessment by fellow clinical providers in the ED. Further treatment and workup at subsequent clinical providers discretion. Patient/guardians urged not to elope from the ED as their condition may be serious if not clinically assessed and managed. Initial orders include: 1- Patient sent to MAIN ED for further evaluation and treatment 2- labs
[2019-12-16 19:12] VITALS: BP 129/88
[2019-12-16 21:42] LABS: Basophils # (Auto) 0.1 K/mm3 (0.0-0.1); Basophils % (Auto) 0.6 % (0.0-1.8); Eosinophils # (Auto) 0.5 K/mm3 (0.0-0.4); Eosinophils % (Auto) 4.2 % (0.0-4.3); Hematocrit 38.1 % (35.5-45.6); Hemoglobin 13.3 gm/dl (11.8-15.2); Lymphocytes # (Auto) 3.4 K/mm3 (1.2-5.4); Lymphocytes % (Auto) 29.9 % (13.4-35.0); Mean Corpuscular HGB Conc 35 % (32-34); Mean Corpuscular Volume 86 fl (84-94); Monocytes # (Auto) 0.8 K/mm3 (0.0-0.8); Monocytes % (Auto) 6.6 % (0.0-7.3); Red Blood Count 4.44 M/mm3 (3.65-5.03); Red Cell Distribution Width 14.7 % (13.2-15.2)
[2019-12-16 21:46] LABS: BUN/Creatinine Ratio 10; Blood Urea Nitrogen 8 mg/dL (9-20); Calcium 10.4 mg/dL (8.4-10.2); Hemolysis Index 14
[2019-12-16 21:55] LABS: Platelet Count 445 K/mm3 (140-440)
== END 2019-12-16 21:40 | disposition left against medical advice (07) ==
LOC: ED 18:16
DX: D57.1 Sickle-cell disease without crisis (principal); Z53.21 Procedure and treatment not carried out due to patient leaving prior to being seen by health care provider
CPT/HCPCS: 36415; 80048; 85025; 85045

== ENCOUNTER 2019-12-18 14:35 | Emergency (ER) | payer MEDICARE ==
[2019-12-18 18:40] VITALS: BP 134/70
== END 2019-12-18 15:00 | disposition left against medical advice (07) ==
LOC: ED 14:35
DX: D57.80 Other sickle-cell disorders without crisis (principal); Z53.21 Procedure and treatment not carried out due to patient leaving prior to being seen by health care provider

== ENCOUNTER 2021-11-24 09:59 | Outpatient (CLI) | payer MEDICARE ==
--- NOTE | 2021-11-24 12:56 | Vascular Lab Report ---
DUPLEX DOPPLER UPPER EXTREMITY VENOUS, RIGHT INDICATION / CLINICAL INFORMATION: R22.1 LOCALIZED SWELLING,MASS, LUMP NECK. TECHNIQUE: Duplex doppler imaging was performed through the veins of the right upper extremity using venous compression and other maneuvers. COMPARISON: None available. FINDINGS: RIGHT INTERNAL JUGULAR VEIN: Chronic thrombus. No acute thrombus. Nonocclusive thrombus. RIGHT SUBCLAVIAN VEIN: Negative. RIGHT AXILLARY VEIN: Negative. RIGHT BRACHIAL VEIN: Negative. RIGHT FOREARM VEINS: Negative. RIGHT BASILIC VEIN (SUPERFICIAL): Negative. ADDITIONAL FINDINGS: Multiple prominent and enlarged lymph nodes are visualized in the right lateral neck. IMPRESSION: 1. 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 No evidence of acute DV T. 2. Multiple prominent and enlarged lymph nodes are visualized in the right lateral neck. Is unclear i f this is secondary to underlying infection or even malignancy. CT soft tissue neck with IV contrast may be useful for further evaluation. Scribed by: Lilian Whitlock RDMS, COLEMAN, ELLEN Scribed: 11/24/2021 11:10 AM I have reviewed the images, agree with this report, and edited this report as needed. Signer Name: Salomón Winston MD Signed: 11/24/2021 12:52 PM Workstation Name: [email or web address]
== END 2021-11-24 10:00 | disposition home or self-care (01) ==
LOC: VAS 09:59
PROVIDERS: ATTEND Internal Medicine Hematology & Oncology
DX: I82.C21 Chronic embolism and thrombosis of right internal jugular vein (principal); R22.1 Localized swelling, mass and lump, neck